=== PATIENT | male | born 1975 | race African-American/Black ===

== ENCOUNTER 2016-11-24 23:31 | Emergency (ER) | payer SELFPAY ==
[2016-11-24 23:31] VITALS: BP 122/76
--- NOTE | 2016-11-24 23:37 | ED.ADGEN ---
Past History Past Medical History: Schizophrenia Adult General Chief Complaint Chief Complaint " They kicked me out of care home for yelling... so the police said I had to come here...".. The care home told me not to come back for three days..." HPI HPI Patient is a 41 year old male who presents with above hx and police referral for his odd behavior. Pt. kicked out of care home for yelling. Pt. at first agreed to allow evaluation. Pt. however upon attempting to draw labs or get IV fluids refused. Pt. states he only wanted a place to sleep and get something to eat. Pt. denies suicidal or homicidal ideation. Pt. does state he has bad dreams. Pt. states he was arguing with other residents of care home is why he go kicked out. Advised patient we could not allow him to use the ED as over night care home, Pt. then elected to leave. Patient refused to produce any ID for his registration in the ED. Review of Systems Review of Systems Constitutional: Denies fever or chills [] Eyes: Denies change in visual acuity, redness, or eye pain [] HENT: Denies nasal congestion or sore throat [] Respiratory: Denies cough or shortness of breath [] Cardiovascular: No additional information not addressed in HPI [] GI: Denies abdominal pain, nausea, vomiting, bloody stools or diarrhea [] : Denies dysuria or hematuria [] Musculoskeletal: Denies back pain or joint pain [] Integument: Denies rash or skin lesions [] Neurologic: Denies headache, focal weakness or sensory changes [] Endocrine: Denies polyuria or polydipsia [] Family History Family History Noncontributory Current Medications Current Medications Current Medications Medications (Trade) Dose Ordered Sig/Rosey Start Time Stop Time Status Last Admin Dose Admin Diphenhydramine HCl (Benadryl) 50 mg 1X ONCE 11/25/16 00:30 11/25/16 00:31 DC Haloperidol (Haldol) 5 mg 1X ONCE 11/25/16 00:30 11/25/16 00:31 DC Lorazepam (Ativan) 1 mg 1X ONCE 11/25/16 00:30 11/25/16 00:31 DC Multivitamins/ Minerals/Folic Acid/Thiamine HCl/ Dextrose/Lactated Ringer's (Infuvite Adult/ Iv D5%-Lr) 1,011.2 ml @ 1,000 mls/ hr 1X ONCE 11/25/16 00:30 11/25/16 01:30 DC Pt. refuses all meds Allergies Allergies Allergies Coded Allergies Type Severity Reaction Last Updated Verified No Known Drug Allergies 11/25/16 No Physical Exam Physical Exam Constitutional: no acute distress, non-toxic appearance. Some pressured speech. HENT: Normocephalic, atraumatic, bilateral external ears normal, oropharynx moist, no oral exudates, nose normal. [] Eyes: PERRLA, EOMI, conjunctiva normal, no discharge. [] Neck: Normal range of motion, no tenderness, supple, no stridor. [] Cardiovascular:Heart rate regular rhythm, no murmur [] Lungs & Thorax: Bilateral breath sounds equal at apexes with a few scattered wheezes on auscultation [] Abdomen: Bowel sounds normal, soft, no tenderness, no masses, no pulsatile masses. [] Skin: Warm, dry, no erythema, no rash. [] Back: No tenderness, no CVA tenderness. [] Extremities: No tenderness, no cyanosis, no clubbing, ROM intact, no edema. [] Neurologic: Alert and oriented X 3, normal motor function, normal sensory function, no focal deficits noted. [] Psychologic: Affect angry that he got kicked out care home, somewhat poor insight., agitated. Demanded that he be arrested so he would have a place to stay. EKG EKG [] Radiology/Procedures Radiology/Procedures [] Course & Med Decision Making Course & Med Decision Making Pertinent Labs and Imaging studies reviewed. (See chart for details). Begged pt. reconsider his decision to leave and allow use to evaluate him and offer him some sedative meds. Pt. refused all care. Pt. left stated he needed the police come and arrest him. [] Final Impression Final Impression 1. Agitated. 2. Appears to have some components of Schizoaffective Disorder. 3. No findings or hx of suicidal or homicidal ideation Problems: Dragon Disclaimer Dragon Disclaimer This electronic medical record was generated, in whole or in part, using a voice recognition dictation system. EFFIE COPELAND MD Nov 24, 2016 23:37
[2016-11-25] MEDS ORDERED: DIPHENHYDRAMINE 50 MG/ML VIAL IV ONE (00:30)
[2016-11-25] MEDS ORDERED: HALOPERIDOL 1 MG TABLET PO ONE (00:30)
[2016-11-25] MEDS ORDERED: LORAZEPAM 1 MG TABLET. PO ONE (00:30)
[2016-11-25] MEDS ORDERED: MVI, ADULT NO.4 WITH VIT K 10 ML, FOLIC ACID 1 MG, THIAMINE 100 MG in IV DEXTROSE 5%-LA... IV ONE ×4 (00:30)
== END 2016-11-25 01:02 | disposition left against medical advice (07) ==
LOC: ER 23:31
DX: R45.1 Restlessness and agitation (principal); F20.9 Schizophrenia, unspecified
CPT/HCPCS: 99283

== ENCOUNTER 2017-02-04 22:43 | Emergency (ER) | payer SELFPAY ==
[2017-02-04 22:45] VITALS: BP 131/81
--- NOTE | 2017-02-04 23:10 | ED.ADGEN ---
Past History Past Medical History: Schizophrenia Past Surgical History: No Surgical History Alcohol Use: Occasionally Drug Use: None Adult General HPI HPI Patient is a 41-year-old man, with history of schizophrenia, who presents to the emergency department with a complaint of left knee pain. Patient states that he "tripped up and fell". He denies any dizziness, any lightheadedness, any chest pain or shortness breath, any weakness, numbness or tingling. He states at this point "my knee is feeling better". He did ambulate into the emergency department without issue. Patient was staying at a homeless [facility], and may have been asked to leave, it is unclear at this point. Patient states that his parents recently, and he currently doesn't have a home, states he is not sure where he is staying tonight. He denies any other injuries or complaints. Patient denies any suicidal or homicidal ideations. Appears to be responding to internal stimuli, but is answering all questions appropriately and is calm and cooperative. Review of Systems Review of Systems Constitutional: Denies fever or chills [] Eyes: Denies change in visual acuity, redness, or eye pain [] HENT: Denies nasal congestion or sore throat [] Respiratory: Denies cough or shortness of breath [] Cardiovascular: No additional information not addressed in HPI [] GI: Denies abdominal pain, nausea, vomiting, bloody stools or diarrhea [] : Denies dysuria or hematuria [] Musculoskeletal: Denies back pain, complaining of left knee pain. Integument: Denies rash or skin lesions [] Neurologic: Denies headache, focal weakness or sensory changes [] Endocrine: Denies polyuria or polydipsia [] Allergies Allergies Allergies Coded Allergies Type Severity Reaction Last Updated Verified No Known Drug Allergies 11/25/16 No Physical Exam Physical Exam Constitutional: Well developed, well nourished, no acute distress, non-toxic appearance. [] HENT: Normocephalic, atraumatic, bilateral external ears normal, oropharynx moist, no oral exudates, nose normal. [] Eyes: PERRLA, EOMI, conjunctiva normal, no discharge. [] Neck: Normal range of motion, no tenderness, supple, no stridor. [] Cardiovascular:Heart rate regular rhythm, no murmur, S1, S2, rubs or gallops. [] Lungs & Thorax: Bilateral breath sounds clear to auscultation, no wheezing, rhonchi, rales. No chest tenderness or crepitus. [] Abdomen: Bowel sounds normal, soft, no tenderness, no rebound, rigidity, no guarding, no masses, no pulsatile masses. [] Skin: Warm, dry, no erythema, no rash. [] Back: No tenderness, no CVA tenderness. [] Extremities: No tenderness, no cyanosis, no clubbing, ROM intact, no edema. [] Neurologic: Alert and oriented X 3, patient is animated, does have somewhat rambling speech, but is easily redirected, normal motor function, normal sensory function, no focal deficits noted. At some points appears to responding to internal stimuli..] Psychologic: Strange affect, animated, judgement normal. EKG EKG Not indicated. [] Radiology/Procedures Radiology/Procedures Not indicated. [] Course & Med Decision Making Course & Med Decision Making Pertinent Labs and Imaging studies reviewed. (See chart for details) History of schizophrenia, is exhibiting signs of responding to internal stimuli , but is answering questions appropriately, is appropriate and cooperative in the emergency department. After my initial evaluation, which did not reveal any evidence of acute abnormalities with the patient's left knee, patient states he is feeling better and that he "needs to go right now". Patient did get dressed, he is cooperative with questioning, and did sign discharge paperwork, states that he has a place to go, does not elaborate. States will return with any concerns. Patient discharged from the emergency department stable condition, exiting department without issue. Final Impression Final Impression [] Problems: Dragon Disclaimer Dragon Disclaimer This electronic medical record was generated, in whole or in part, using a voice recognition dictation system. Departure: Impression: Primary Impression: Knee pain Disposition: HOME, SELF-CARE Condition: STABLE BERHANE SALCEDO DO February 04, 2017 23:10
== END 2017-02-04 23:03 | disposition home or self-care (01) ==
LOC: ER 22:43
DX: M25.562 Pain in left knee (principal); F20.9 Schizophrenia, unspecified; W01.0XXA Fall on same level from slipping, tripping and stumbling without subsequent striking against object, initial encounter; Y93.89 Activity, other specified; Y99.8 Other external cause status; Y92.89 Other specified places as the place of occurrence of the external cause
CPT/HCPCS: 99281

== ENCOUNTER 2017-02-05 04:49 | Emergency (ER) | payer SELFPAY ==
[2017-02-05 04:49] VITALS: BP 118/84
--- NOTE | 2017-02-05 05:13 | ED.ADGEN ---
Past History Past Medical History: Diabetes Past Surgical History: Other Alcohol Use: None Drug Use: None Adult General HPI HPI Patient is a 41-year-old man, with history of diabetes, schizophrenia, who presents to the emergency department with a complaint of left knee pain. Patient states that several hours ago he fell, tripping over his feet, and striking his left knee on the ground. Patient was seen earlier this evening, with the same complaint, however at time of evaluation he stated he did leave the emergency department, and was discharged as he was ambulating without difficulty. Patient returns complaining of continued pain in the left knee. Patient did ambulate in the ED without any evidence of difficulty. He states that he did fall down and strike his left knee. He is complaining of pain in both the lateral and anterior portions of the knee. Patient is also complaining of a "weird thing" with his penis, denies any discharge or drainage, any concern for sexually transmitted infections, any injuries. Patient denies chest pain, shortness breath, fevers, chills, hematuria or dysuria, weakness, numbness , tingling, other injuries or complaints. Patient occasionally appears to be responding to internal stimuli, but is cooperative and appropriate in his responses. Review of Systems Review of Systems Constitutional: Denies fever or chills [] Eyes: Denies change in visual acuity, redness, or eye pain [] HENT: Denies nasal congestion or sore throat [] Respiratory: Denies cough or shortness of breath [] Cardiovascular: No additional information not addressed in HPI [] GI: Denies abdominal pain, nausea, vomiting, bloody stools or diarrhea [] : Denies dysuria or hematuria . "Strange thing" regarding his penis. [] Musculoskeletal: Denies back pain, complaining of pain in the left knee. Integument: Denies rash or skin lesions [] Neurologic: Denies headache, focal weakness or sensory changes [] Endocrine: Denies polyuria or polydipsia [] Current Medications Current Medications Current Medications Medications (Trade) Dose Ordered Sig/Rosey Start Time Stop Time Status Last Admin Dose Admin Naproxen (Naprosyn) 500 mg 1X ONCE 02/05/17 05:30 02/05/17 05:31 DC 02/05/17 05:15 500 MG Allergies Allergies Allergies Coded Allergies Type Severity Reaction Last Updated Verified egg Allergy Intermediate 02/05/17 Yes shellfish derived Allergy Intermediate 02/05/17 Yes Physical Exam Physical Exam Constitutional: Well developed, well nourished, no acute distress, non-toxic appearance. [] HENT: Normocephalic, atraumatic, bilateral external ears normal, oropharynx moist, no oral exudates, nose normal. [] Eyes: PERRLA, EOMI, conjunctiva normal, no discharge. [] Neck: Normal range of motion, no tenderness, supple, no stridor. [] Cardiovascular:Heart rate regular rhythm, no murmur, S1, S2, no rubs or gallops. [] Lungs & Thorax: Bilateral breath sounds clear to auscultation, no wheezing, rhonchi, rales. No chest wall tenderness or crepitus. [] Abdomen: Bowel sounds normal, soft, no tenderness, no masses, no pulsatile masses. [] Skin: Warm, dry, no erythema, no rash. [] Back: No tenderness, no CVA tenderness. [] Extremities: No bony point tenderness identified, patient complaining of pain in the patella and lateral malleolus region, no cyanosis, no clubbing, ROM intact, no edema. [] Neurologic: Alert and oriented X 3, normal motor function, normal sensory function, no focal deficits noted. [] Psychologic: Affect normal, judgement normal, mood normal. [] examination: Normal-appearing examination, patient is circumcised, no lesions abnormalities identified, no discharge or drainage, no injuries, no tenderness to palpation, normal cremaster reflex, no lymphadenopathy. Current Patient Data Vital Signs Vital Signs Date Time Temp Pulse Resp B/P (MAP) Pulse Ox O2 Delivery O2 Flow Rate FiO2 02/05/17 04:49 97.7 60 16 99 Room Air EKG EKG Not indicated. [] Radiology/Procedures Radiology/Procedures Knee x-ray: Three-view: Left: No acute fracture or subluxation, no effusion, no soft tissue or bony abnormalities identified. As interpreted by me. [] Course & Med Decision Making Course & Med Decision Making Pertinent Labs and Imaging studies reviewed. (See chart for details) Patient complaining of left knee pain, and also a vague complaints regarding his genital region, denies any concerning history of exposure or symptoms, after discussion is agreeable we will obtain an x-ray of the knee, and a urine dipstick to rule out abnormalities, patient also to receive naproxen for discomfort in the ED. No evidence of joint effusion or other abnormalities, patient with vital signs within normal limits in the emergency department, and no other concerning history, no indication for additional testing beyond what has been discussed at this time based on my evaluation. Patient freely stated that he was homeless, and when he left the ED previously, was not sure his ear he was going to spend the night, which may be a portion of the reason why he is return to the emergency department this time. As stated, patient is occasionally responding to internal stimuli, but is appropriate in his responses and behavior, and denies any concerning mental health symptoms at this time. Patient's x-ray reviewed, no concerning finds identified, as stated patient ambulated without difficulty, discusses the patient and he states that he is relieved with these findings to be discharged home. He does not want to wait to provide a urine sample at this time. We did give him recommendations and precautions, and also follow information for [facility] clinic. Patient states he'll return if he requires additional evaluation, was discharged in stable condition with plan as above. Final Impression Final Impression [] Problems: Dragon Disclaimer Dragon Disclaimer This electronic medical record was generated, in whole or in part, using a voice recognition dictation system. Departure: Disposition: 01 HOME, SELF-CARE Condition: IMPROVED BERHANE SALCEDO DO February 05, 2017 05:13
[2017-02-05] MEDS ORDERED: NAPROXEN 500 MG TABLET PO ONE (05:30)
--- NOTE | 2017-02-05 09:13 | RAD ---
Left knee radiographs History: Pain after fall. Comparison: None. Findings: AP, lateral, and oblique views of the left knee. No acute fracture or dislocation is identified. No joint effusion is seen. Minimal tricompartment degeneration is present. Fabella is noted. Impression: No acute osseous traumatic injury identified.
== END 2017-02-05 05:57 | disposition home or self-care (01) ==
LOC: ER 04:49
DX: M25.562 Pain in left knee (principal); E11.9 Type 2 diabetes mellitus without complications; Z91.012 Allergy to eggs; Z91.013 Allergy to seafood; W01.198A Fall on same level from slipping, tripping and stumbling with subsequent striking against other object, initial encounter; Y93.89 Activity, other specified; Y99.8 Other external cause status; Y92.89 Other specified places as the place of occurrence of the external cause
CPT/HCPCS: 73562; 99284

== ENCOUNTER 2017-02-05 23:30 | Emergency (ER) | payer SELFPAY ==
[2017-02-05 23:30] VITALS: BP 112/69
--- NOTE | 2017-02-06 00:56 | ED.ADGEN ---
Past History Past Medical History: Anxiety, Diabetes, Other Past Surgical History: Other Alcohol Use: None Drug Use: None Adult General HPI HPI Patient is a 41-year-old man, who presents emergency department complaining of "numbness"in the anterior portion of his left leg. Patient was seen in the emergency department twice last night, at that time he was complaining of left knee pain. Patient is homeless, and states that he [facility]". He states that he was planning on going to [place], but at this point does not have the resources to get to [place]. Patient denies any injuries, states that he will occasionally have numbness in his left lower extremity, denies any swelling, any pain, states that he "walks a lot", no pain in the feet, no pain in the right side of his leg, he is denying pain in the left leg at this time. Patient received an x-ray yesterday that was unremarkable of his left knee. When asked where he is staying [facility], patient states "I don't have any where to go." Vital signs within normal limits, no chest pain, shortness breath, nausea, vomiting, no rashes, no other complaints. Review of Systems Review of Systems Constitutional: Denies fever or chills [] Eyes: Denies change in visual acuity, redness, or eye pain [] HENT: Denies nasal congestion or sore throat [] Respiratory: Denies cough or shortness of breath [] Cardiovascular: No additional information not addressed in HPI [] GI: Denies abdominal pain, nausea, vomiting, bloody stools or diarrhea [] : Denies dysuria or hematuria [] Musculoskeletal: Denies back pain or joint pain [] Integument: Denies rash or skin lesions [] Neurologic: Denies headache, focal weakness, complaining of intermittent numbness in the anterior portion of his left lower extremity. Endocrine: Denies polyuria or polydipsia [] Allergies Allergies Allergies Coded Allergies Type Severity Reaction Last Updated Verified egg Allergy Intermediate 02/05/17 Yes shellfish derived Allergy Intermediate 02/05/17 Yes Physical Exam Physical Exam Constitutional: Well developed, well nourished, no acute distress, non-toxic appearance. [] HENT: Normocephalic, atraumatic, bilateral external ears normal, oropharynx moist, no oral exudates, nose normal. [] Eyes: PERRLA, EOMI, conjunctiva normal, no discharge. [] Neck: Normal range of motion, no tenderness, supple, no stridor. [] Cardiovascular:Heart rate regular rhythm, no murmur, S1, S2, rubs or gallops. [] Lungs & Thorax: Bilateral breath sounds clear to auscultation, no wheezing, rhonchi, rales. No chest or crepitus or tenderness. [] Abdomen: Bowel sounds normal, soft, no tenderness, no rebound, rigidity, no guarding, no masses, no pulsatile masses. [] Skin: Warm, dry, no erythema, no rash. [] Back: No tenderness, no CVA tenderness. [] Extremities: No tenderness, no cyanosis, no clubbing, ROM intact, no edema. Patient with sensation intact on my examination. Eyes and patient's feet as well , there is no evidence of skin breakdown, swelling, or other abnormalities. Neurologic: Alert and oriented X 3, normal motor function, normal sensory function, no focal deficits noted. [] Psychologic: Affect normal, judgement normal, mood normal. [] EKG EKG Not indicated. [] Radiology/Procedures Radiology/Procedures [] Course & Med Decision Making Course & Med Decision Making Pertinent Labs and Imaging studies reviewed. (See chart for details) [] Patient with a normal examination of bilateral lower extremities and feet. On further questioning, patient states that he does not have anywhere to go tonight, as he has [facility]". As stated, his plan was to go to [place] where he has some resources but he is able to get there at this time due to transportation difficulties. It does appear that the patient is primarily looking for a place to rest. He denies any other complaints at this time, and asthma evaluation is not identified any concerning findings, patient was then discharged, with resources for [facility] clinic, and instructions on concerning symptoms that prompt return. Final Impression Final Impression [] Problems: Dragon Disclaimer Dragon Disclaimer This electronic medical record was generated, in whole or in part, using a voice recognition dictation system. Departure: Impression: Primary Impression: Left leg paresthesias Additional Impression: Homeless Disposition: 01 HOME, SELF-CARE Condition: STABLE BERHANE SALCEDO DO Feb 06, 2017 00:56
== END 2017-02-06 00:35 | disposition home or self-care (01) ==
LOC: ER 23:30
DX: R20.2 Paresthesia of skin (principal); E11.9 Type 2 diabetes mellitus without complications; F41.9 Anxiety disorder, unspecified; Z59.0 Homelessness; Z91.012 Allergy to eggs; Z91.013 Allergy to seafood
CPT/HCPCS: 99281

== ENCOUNTER 2017-02-06 22:39 | Emergency (ER) | payer SELFPAY ==
--- NOTE | 2017-02-06 22:47 | ED.ADGEN ---
Past History Past Medical History: Diabetes Past Surgical History: No Surgical History Alcohol Use: None Drug Use: None Adult General HPI HPI Patient is a [age] year old [sex] who presents with [] Review of Systems Review of Systems Constitutional: Denies fever or chills [] Eyes: Denies change in visual acuity, redness, or eye pain [] HENT: Denies nasal congestion or sore throat [] Respiratory: Denies cough or shortness of breath [] Cardiovascular: No additional information not addressed in HPI [] GI: Denies abdominal pain, nausea, vomiting, bloody stools or diarrhea [] : Denies dysuria or hematuria [] Musculoskeletal: Denies back pain or joint pain [] Integument: Denies rash or skin lesions [] Neurologic: Denies headache, focal weakness or sensory changes [] Endocrine: Denies polyuria or polydipsia [] Allergies Allergies Allergies Coded Allergies Type Severity Reaction Last Updated Verified egg Allergy Intermediate 02/05/17 Yes shellfish derived Allergy Intermediate 02/05/17 Yes Physical Exam Physical Exam Constitutional: Well developed, well nourished, no acute distress, non-toxic appearance. [] HENT: Normocephalic, atraumatic, bilateral external ears normal, oropharynx moist, no oral exudates, nose normal. [] Eyes: PERRLA, EOMI, conjunctiva normal, no discharge. [] Neck: Normal range of motion, no tenderness, supple, no stridor. [] Cardiovascular:Heart rate regular rhythm, no murmur [] Lungs & Thorax: Bilateral breath sounds clear to auscultation [] Abdomen: Bowel sounds normal, soft, no tenderness, no masses, no pulsatile masses. [] Skin: Warm, dry, no erythema, no rash. [] Back: No tenderness, no CVA tenderness. [] Extremities: No tenderness, no cyanosis, no clubbing, ROM intact, no edema. [] Neurologic: Alert and oriented X 3, normal motor function, normal sensory function, no focal deficits noted. [] Psychologic: Affect normal, judgement normal, mood normal. [] Current Patient Data Vital Signs Vital Signs Date Time Temp Pulse Resp B/P (MAP) Pulse Ox O2 Delivery O2 Flow Rate FiO2 02/06/17 22:50 98.3 68 20 99 Room Air EKG EKG [] Radiology/Procedures Radiology/Procedures [] Course & Med Decision Making Course & Med Decision Making Pertinent Labs and Imaging studies reviewed. (See chart for details) [] Final Impression Final Impression [] Problems: Dragon Disclaimer Dragon Disclaimer This electronic medical record was generated, in whole or in part, using a voice recognition dictation system. NANCY SALGADO MD Feb 06, 2017 22:47
[2017-02-06 22:50] VITALS: BP 130/88
== END 2017-02-06 23:05 | disposition home or self-care (01) ==
LOC: ER 22:39
DX: R20.0 Anesthesia of skin (principal); M79.605 Pain in left leg; Z59.0 Homelessness; Z53.21 Procedure and treatment not carried out due to patient leaving prior to being seen by health care provider

== ENCOUNTER 2017-02-11 04:03 | Emergency (ER) | payer SELFPAY ==
[2017-02-11 04:25] VITALS: BP 111/73
--- NOTE | 2017-02-11 04:28 | PHYS DOC ---
Past History Past Medical History: Anxiety, Diabetes, Schizophrenia Past Surgical History: No Surgical History Alcohol Use: None Drug Use: None Adult General Chief Complaint Chief Complaint: EARACHE/EAR PAIN HPI HPI Patient is a 41 year old M who presents with left ear pain for the past 3 hours. Patient denies any fevers. Patient denies any chest pain or shortness of breath. Patient denies any productive cough or URI symptoms. Patient denies any nausea/vomiting/diarrhea. Patient has no other complaints. Pertinent exam findings: TMs bilaterally were clear nonbulging non-erythematous cerumen noted in both ear canals but not impacted ED course: Patient was seen and evaluated and was offered pain medication for his left earache however he declined by mouth and IM pain medication and would like to be discharged. MDM: After reviewing the chart, CC/HPI/PMH, physical exam, do not believe the patient has emergent medical condition warranting further workup and/or admission at this time. Based on physical exam I see no signs of a bacterial infection warranting antibiotics. Patient declined all offers of pain medication in the emergency room. Patient is stable to be discharged. Patient is comfortable being discharged. Additional verbal discharge instructions were provided to the patient and that if symptoms get worse or any new symptoms arise that are worrisome to the patient he is to return to the emergency room immediately Review of Systems Review of Systems GEN: Denies fevers, chills, sweats HEENT: Left ear pain, Denies blurred vision, sore throat CV: Denies chest pain RESP: Denies shortness of air, cough GI: Denies n/v/d NEURO: Denies confusion, dizziness MSK: Denies weakness, joint pain/swelling Allergies Allergies Allergies Coded Allergies Type Severity Reaction Last Updated Verified egg Allergy Intermediate 02/05/17 Yes shellfish derived Allergy Intermediate 02/05/17 Yes Physical Exam Physical Exam GEN.: No apparent distress. Alert and oriented. HEENT: Head is normocephalic, atraumatic, TMs clear bilaterally nonbulging with no erythema, cerumen noted in both ear canals but not impacted NECK: Supple. LUNGS: CTAB. HEART: RRR, S1, S2 present. Peripheral pulses intact ABDOMEN: Soft, nontender. Positive bowel sounds. EXTREMITIES: Without any cyanosis. NEUROLOGIC: Normal speech, normal tone PSYCHIATRIC: Normal affect, normal mood. SKIN: No ulcerations EKG EKG [] Radiology/Procedures Radiology/Procedures [] Course & Med Decision Making Course & Med Decision Making Pertinent Labs and Imaging studies reviewed. (See chart for details) [] Dragon Disclaimer Dragon Disclaimer This chart was dictated in whole or in part using Voice Recognition software in a busy, high-work load, and often noisy Emergency Department environment. It may contain unintended and wholly unrecognized errors or omissions. Departure Departure: Impression: Primary Impression: Otalgia of left ear Disposition: HOME, SELF-CARE Condition: IMPROVED Referrals: PCP,NO (PCP) Patient Instructions: Otalgia-Brief Additional Instructions: Please follow with her PCP in one to 2 days PAGE GUERRERO DO Feb 11, 2017 04:28
== END 2017-02-11 04:35 | disposition home or self-care (01) ==
LOC: ER 04:03
DX: H92.02 Otalgia, left ear (principal); F20.9 Schizophrenia, unspecified; E11.9 Type 2 diabetes mellitus without complications; Z91.012 Allergy to eggs; Z91.013 Allergy to seafood
CPT/HCPCS: 99281

== ENCOUNTER 2017-02-12 23:23 | Emergency (ER) | payer SELFPAY ==
[2017-02-12 23:23] VITALS: BP 112/72
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
[2017-02-13] MEDS ORDERED: NAPROXEN 500 MG TABLET PO ONE (00:15)
== END 2017-02-13 00:10 | disposition home or self-care (01) ==
LOC: ER 23:23
DX: G89.29 Other chronic pain (principal); M25.562 Pain in left knee; K05.10 Chronic gingivitis, plaque induced; E11.9 Type 2 diabetes mellitus without complications; F20.9 Schizophrenia, unspecified; Z91.012 Allergy to eggs; W18.09XA Striking against other object with subsequent fall, initial encounter; Y93.01 Activity, walking, marching and hiking; Y92.241 Library as the place of occurrence of the external cause; Y99.8 Other external cause status; Z91.013 Allergy to seafood
CPT/HCPCS: 99282

== ENCOUNTER 2017-03-13 00:02 | Emergency (ER) | payer SELFPAY ==
[2017-03-13 00:02] VITALS: BP 124/78
[2017-03-13] MEDS ORDERED: LORazepam 1 MG TABLET ONE (00:19)
--- NOTE | 2017-03-13 00:22 | PHYS DOC ---
Past History Past Medical History: Anxiety, Diabetes, Schizophrenia, Other Past Surgical History: No Surgical History Alcohol Use: None Drug Use: None Adult General Chief Complaint Chief Complaint: HALLUCINATIONS AUDIBLE/VISUAL HPI HPI This is a pleasant 41-year-old male with a history of schizophrenia and anxiety who is homeless and [facility] shows up in the emergency from either complaining of auditory hallucinations or knee pain. Today's complain of auditory hallucinations began earlier today there are voices that he hears although they are not command voices he does not recognize the voices and these are not telling to hurt himself or anyone else. He believes that there are speaking Latin he has had symptoms like this before and these beginning more frequent over the last several days. He denies any headache, nausea, vomiting, change in vision, fevers or chills recent URI symptoms change in medications or trauma. Patient is very pleasant he has no complaints otherwise My differential for visual and auditory hallucinations includes but is not limited to retinal pathology, vision loss, migraine headache, seizure disorder, dementia, alcohol, alcohol withdrawal, medication withdrawal, narcolepsy, psychiatric illness, metabolic encephalopathy, hypothyroidism, renal failure, systemic infection, central nervous system ischemia, Review of Systems Review of Systems Constitutional: Denies fever or chills [] Eyes: Denies change in visual acuity, redness, or eye pain [] HENT: Denies nasal congestion or sore throat [] Respiratory: Denies cough or shortness of breath [] Cardiovascular: No additional information not addressed in HPI [] GI: Denies abdominal pain, nausea, vomiting, bloody stools or diarrhea [] : Denies dysuria or hematuria [] Musculoskeletal: Denies back pain or joint pain [] Integument: Denies rash or skin lesions [] Neurologic: Denies headache, focal weakness or sensory changes [] Endocrine: Denies polyuria or polydipsia [] Allergies Allergies Allergies Coded Allergies Type Severity Reaction Last Updated Verified egg Allergy Intermediate 02/05/17 Yes shellfish derived Allergy Intermediate 02/05/17 Yes Physical Exam Physical Exam Constitutional: Well developed, well nourished, no acute distress, non-toxic appearance. [] HENT: Normocephalic, atraumatic, bilateral external ears normal, oropharynx moist, no oral exudates, nose normal. [] Eyes: PERRLA, EOMI, conjunctiva normal, no discharge. [] Neck: Normal range of motion, no tenderness, supple, no stridor. [] Cardiovascular:Heart rate regular rhythm, no murmur [] Lungs & Thorax: Bilateral breath sounds clear to auscultation [] Abdomen: Bowel sounds normal, soft, no tenderness, no masses, no pulsatile masses. [] Skin: Warm, dry, no erythema, no rash. [] Extremities: No tenderness, no cyanosis, no clubbing, ROM intact, no edema. [] Neurologic: Alert and oriented X 3, normal motor function, normal sensory function, no focal deficits noted. [] Psychologic: Low he says he is experiencing auditory hallucinations his affect is normal he's very reasonable in one to take oral medications without issue. He is not hungry he is comfortable resting in the quiet. EKG EKG [] Radiology/Procedures Radiology/Procedures [] Course & Med Decision Making Course & Med Decision Making Pertinent Labs and Imaging studies reviewed. (See chart for details) his is a patient with a long-standing history of poorly-controlled schizophrenia. He denies being suicidal homicidal at this time denies these are command voices not calling him to do anything inappropriate or dangerous. He is resting comfortably is not hungry he has no other complaints. He will be offered oral Haldol and Ativan to treat his acute symptoms. I will encourage him to follow- up with his primary care doctor or the local health department to encourage him to stay on his medications to treat his schizophrenia. [] Dragon Disclaimer Dragon Disclaimer This chart was dictated in whole or in part using Voice Recognition software in a busy, high-work load, and often noisy Emergency Department environment. It may contain unintended and wholly unrecognized errors or omissions. Departure Departure: Impression: Primary Impression: Schizophrenia Additional Impression: Auditory hallucinations Disposition: 01 HOME, SELF-CARE Condition: STABLE Referrals: PCPSTEVE (PCP) Patient Instructions: Hallucinations and Delusions Additional Instructions: Please follow-up with the local health department for continued management of your medications. I would encourage her to follow-up with his local psychiatrist to change or modify medications if that would help control your symptoms. Problem Qualifiers JUNIOR MORENO MD Mar 13, 2017 00:22
[2017-03-13] MEDS ORDERED: LORazepam 1 MG TABLET PO ONE (00:30)
[2017-03-13] MEDS ORDERED: HALOPERIDOL 1 MG TABLET PO ONE ×2 (00:30)
== END 2017-03-13 00:37 | disposition home or self-care (01) ==
LOC: ER 00:02
DX: F20.9 Schizophrenia, unspecified (principal); E11.9 Type 2 diabetes mellitus without complications; F41.9 Anxiety disorder, unspecified; Z59.0 Homelessness; Z91.012 Allergy to eggs; Z91.013 Allergy to seafood
CPT/HCPCS: 99283

== ENCOUNTER 2017-03-16 00:30 | Emergency (ER) | payer SELFPAY ==
--- NOTE | 2017-03-16 01:32 | PHYS DOC ---
Past History Past Medical History: Anxiety, Diabetes, Schizophrenia, Other Past Surgical History: No Surgical History Alcohol Use: None Drug Use: None Adult General Chief Complaint Chief Complaint: HALLUCINATIONS AUDIBLE/VISUAL HPI HPI This is a pleasant 41-year-old male with a history of poorly with schizophrenia who presents with hearing voices. He says he does voice been going on for years intermittently they're not command voices he does not recognize them and did not manifest to hurt himself or anybody else. He was just asking for some effect to treat his symptoms saying go about his business. He denies any headache, denies any trauma, denies any medication changes. He denies any fevers , chills or other symptoms. He is somewhat hungry and also asked for a meal to eat. He denies any pain. He does have a place to stay once he is treated. Review of Systems Review of Systems Constitutional: Denies fever or chills [] Eyes: Denies change in visual acuity, redness, or eye pain [] HENT: Denies nasal congestion or sore throat [] Respiratory: Denies cough or shortness of breath [] Cardiovascular: No additional information not addressed in HPI [] GI: Denies abdominal pain, nausea, vomiting, bloody stools or diarrhea [] : Denies dysuria or hematuria [] Musculoskeletal: Denies back pain or joint pain [] Integument: Denies rash or skin lesions [] Neurologic: Denies headache, focal weakness or sensory changes he complains primary of hearing voices although they do not say for him to do anything specific to keep him up at night. He does not recognize them did not tell him to hurt himself or anybody was. He denies homicidal suicidal ideations Endocrine: Denies polyuria or polydipsia [] Current Medications Current Medications Current Medications Medications (Trade) Dose Ordered Sig/Rosey Start Time Stop Time Status Last Admin Dose Admin Haloperidol (Haldol) 5 mg 1X ONCE 03/16/17 02:00 03/16/17 02:01 Allergies Allergies Allergies Coded Allergies Type Severity Reaction Last Updated Verified egg Allergy Intermediate 02/05/17 Yes shellfish derived Allergy Intermediate 02/05/17 Yes Physical Exam Physical Exam Blood pressure 145/81 saturation on 100% percent on room air Constitutional: Well developed, well nourished, no acute distress, non-toxic appearance. He is appropriate and interactive HENT: Normocephalic, atraumatic, bilateral external ears normal, oropharynx moist, Eyes: PERRLA, EOMI, conjunctiva normal, no discharge. [] Neck: Normal range of motion, no tenderness, supple, no stridor. [] Cardiovascular:Heart rate regular rhythm, no murmur [] Lungs & Thorax: Bilateral breath sounds clear to auscultation [] Skin: Warm, dry, no erythema, no rash. [] Back: No tenderness, no CVA tenderness. [] Extremities: No tenderness, no cyanosis, Neurologic: Alert and oriented X 3, normal motor function, normal sensory function, no focal deficits noted. [] Psychologic: Affect normal, judgement normal, mood normal. He is very appropriate and interactive not actively hearing voices at this time. Patient asked for food is resting comfortably without issue he's had a normal gait EKG EKG [] Radiology/Procedures Radiology/Procedures [] Course & Med Decision Making Course & Med Decision Making Pertinent Labs and Imaging studies reviewed. (See chart for details) and presents with his typical auditory hallucinations. He has asked for by mouth dose of Haldol and food. Not a danger to himself or anybody else he does have follow-up as opposed to stay tonight. My differential for visual hallucinations includes but is not limited to retinal pathology, vision loss, migraine headache, seizure disorder, dementia, alcohol, alcohol withdrawal, medication withdrawal, narcolepsy, psychiatric illness, metabolic encephalopathy, hypothyroidism, renal failure, systemic infection, central nervous system ischemia, considered but patient assures me this is a typical presentation for him with no other changes. Impression: Auditory hallucinations reported by history, poorly controlled schizophrenia dePosition: PCP follow-up and referral to behavioral health [] Dragon Disclaimer Dragon Disclaimer This chart was dictated in whole or in part using Voice Recognition software in a busy, high-work load, and often noisy Emergency Department environment. It may contain unintended and wholly unrecognized errors or omissions. Departure Departure: Impression: Primary Impression: Auditory hallucinations Disposition: 01 HOME, SELF-CARE Condition: STABLE Referrals: PCP,NO (PCP) Patient Instructions: Hallucinations and Delusions Additional Instructions: Please follow-up with your PCP in the morning for modification of her medications referral to behavioral health to help treat your schizophrenic. Please return for any new or increasing symptoms. JUNIOR MORENO MD Mar 16, 2017 01:32
[2017-03-16 02:00] VITALS: BP 144/82
[2017-03-16] MEDS ORDERED: HALOPERIDOL 1 MG TABLET PO ONE (02:00)
== END 2017-03-16 02:12 | disposition home or self-care (01) ==
LOC: ER 00:30
DX: R44.0 Auditory hallucinations (principal); E11.9 Type 2 diabetes mellitus without complications; F41.9 Anxiety disorder, unspecified; Z91.012 Allergy to eggs; Z91.013 Allergy to seafood
CPT/HCPCS: 99282; 99284

== ENCOUNTER 2017-03-16 07:38 | Emergency (ER) | payer SELFPAY ==
[2017-03-16 07:45] VITALS: BP 144/76
--- NOTE | 2017-03-16 08:13 | RAD ---
Examination: 2 views of the chest History: History of cough for one week. Comparison: None available Findings: The cardiomediastinal silhouette grossly appears unremarkable. Minimal prominent appearing bilateral interstitial lung markings in the perihilar region probably secondary to bronchitis. Impression: 1. Minimal prominent appearing bronchial markings in the perihilar region probably secondary to bronchitis.
== END 2017-03-16 08:12 | disposition left against medical advice (07) ==
LOC: ER 07:38
DX: R04.2 Hemoptysis (principal)
CPT/HCPCS: 71020; 99281; 99284

== ENCOUNTER 2017-03-20 21:15 | Observation (INO) | payer SELFPAY ==
[2017-03-20] MEDS ORDERED: LORazepam 1 MG TABLET PO ONE (22:00)
[2017-03-20] MEDS ORDERED: HALOPERIDOL 1 MG TABLET PO ONE (22:00)
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
[2017-03-21 01:17] LABS: BASO # 0.1 x10^3/uL (0.0-0.2); BASO % 2 % (0-3); EOS # 0.1 x10^3/uL (0.0-0.7); EOS % 3 % (0-3); HEMATOCRIT 37.7 % (39.0-53.0); HEMOGLOBIN 12.1 g/dL (13.0-17.5); LYMPH # 1.2 x10^3/uL (1.0-4.8); LYMPH % 29 % (24-48); MEAN CORPUSCULAR HEMOGLOBIN 24 pg (25-35); MEAN CORPUSCULAR HGB CONC 32 g/dL (31-37); MEAN CORPUSCULAR VOLUME 74 fL (79-100); MONO # 0.4 x10^3/uL (0.0-1.1); MONO % 10 % (0-9); NEUT # 2.2 x10^3uL (1.8-7.7); NEUT % 56 % (31-73); PLATELET COUNT 209 x10^3/uL (140-400); RED BLOOD COUNT 5.07 x10^6/uL (4.30-5.70); RED CELL DISTRIBUTION WIDTH 14.4 % (11.5-14.5); WHITE BLOOD COUNT 3.9 x10^3/uL (4.0-11.0)
[2017-03-21 01:25] LABS: ALBUMIN 3.2 g/dL (3.4-5.0); ALBUMIN/GLOBULIN RATIO 0.8 (1.0-1.7); CALCIUM 8.6 mg/dL (8.5-10.1); CREATININE 0.6 mg/dL (0.7-1.3); GFR 180.6; TOTAL BILIRUBIN 0.3 mg/dL (0.2-1.0); TOTAL PROTEIN 7.3 g/dL (6.4-8.2)
[2017-03-21] MEDS ORDERED: ACETAMINOPHEN 325 MG TABLET PO PRN (06:15)
--- NOTE | 2017-03-21 06:47 | EKG ---
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
[2017-03-21 08:03] LABS: AMPHETAMINE/METHAMPHETAMINE NEG (NEG); BARBITURATES NEG (NEG); BENZODIAZEPINES NEG (NEG); CANNABINOIDS NEG (NEG); COCAINE NEG (NEG); METHADONE NEG (NEG); OPIATES NEG (NEG); PHENCYCLIDINE NEG (NEG)
[2017-03-21 08:06] LABS: BACTERIA,URINE 0 /HPF (0-FEW); BILIRUBIN,URINE NEG (NEG); CLARITY,URINE CLEAR; COLOR,URINE YELLOW; GLUCOSE,URINE NEG (NEG); HYALINE CASTS, URINE OCC /HPF; NITRITE,URINE NEG (NEG); RBC,URINE 0 /HPF (0-2); SQUAMOUS EPITHELIAL CELL,UR OCC /LPF; UROBILINOGEN,URINE 0.2 mg/dL (0.2 mg/dL); WBC,URINE 0 /HPF (0-4)
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
[2017-03-21 11:28] VITALS: BP 117/75
--- NOTE | 2017-03-25 02:14 | ACF ---
Admission Criteria Forms PSYCHIATRIC DISORDERS Clinical Indications for Inpatient Care (Place 'X' for any and all applicable criteria): Ongoing inpatient care may be needed for 1 or more of the following(1)(2)(3)(4)( 6)(7)(8): [ ]I. Danger to self or others not manageable at lower level of care. [ ]II. Grave disability (eg, inability to perform self care necessary at lower level of care) [ ]III. Agitation or inappropriate behavior interfering with care for primary condition (eg, attempting to discontinue lines or drains prematurely, unable to cooperate with respiratory care) [x]IV. Severe disability or disorder indicated by ALL of the following: [x]a) Severe behavioral health disorder-related symptoms or condition indicated by 1 or more of the following: [ ]i) Severe problem with cognition, memory, judgment, or impulse control [x]ii) Severe clinical manifestations (eg, hallucinations, delusions, other acute psychotic symptoms, zulema, extreme agitation or anxiety) [x]b) Patient management at lower level of care is not feasible until acute intervention or modification is initiated. Extended stay beyond goal length of stay for the primary condition may be needed untilALLof the following are present(1)(2)(3)(4)(722)(23): [ ]a) Danger to self or others is absent or manageable at lower level of care [ ]b) Behavior crisis management, including physical or chemical restraints, is required and is not available at a lower level of care. [ ]c) Behavioral symptoms (e.g., agitation, somnolence, inappropriate behavior) are present, and are not manageable at a lower level of care. [ ]d) Patient cannot understand follow-up treatment and crisis plan. [ ]e) Provider and supports are sufficiently available at lower level of care. [ ]f) Patient can participate (e.g., verify absence of plan for harm) and is in needed of monitoring. The original [facility] [employer] content created by [facility] [employer] has been revised. The portions of the content which have been revised are identified through the use of italic text, and [employer] has neither reviewed nor approved the modified material. All other unmodified content is copyright [facility]. Please see references footnoted in the original [facility] edition 2015 Admission Criteria Met?: Yes PETE LYNN Mar 25, 2017 02:14
== END 2017-03-21 13:34 | disposition home or self-care (01) ==
LOC: ER 21:15 → ICU 03-21 06:09
PROVIDERS: ADMIT Family Medicine; ATTEND Family Medicine
DX: F31.9 Bipolar disorder, unspecified (principal); F20.9 Schizophrenia, unspecified; E11.9 Type 2 diabetes mellitus without complications; F17.200 Nicotine dependence, unspecified, uncomplicated; Z59.0 Homelessness
CPT/HCPCS: 36415; 80053; 81001; 82550; 84484; 85027; 87641; 93005; 99285; G0378; G0480; G0481; G0379

== ENCOUNTER 2017-03-23 05:04 | Emergency (ER) | payer SELFPAY ==
[2017-03-23 05:20] VITALS: BP 120/66
[2017-03-23] MEDS ORDERED: HALOPERIDOL LACT 5 MG/ML VIAL. IVP ONE (05:30)
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
[2017-03-23 05:50] LABS: BASO # 0.1 x10^3/uL (0.0-0.2); BASO % 1 % (0-3); EOS # 0.2 x10^3/uL (0.0-0.7); EOS % 3 % (0-3); HEMATOCRIT 40.2 % (39.0-53.0); LYMPH % 21 % (24-48); MEAN CORPUSCULAR HEMOGLOBIN 24 pg (25-35); MEAN CORPUSCULAR HGB CONC 32 g/dL (31-37); MEAN CORPUSCULAR VOLUME 75 fL (79-100); MONO # 0.5 x10^3/uL (0.0-1.1); MONO % 10 % (0-9); NEUT # 3.1 x10^3uL (1.8-7.7); NEUT % 65 % (31-73); PLATELET COUNT 240 x10^3/uL (140-400); RED BLOOD COUNT 5.38 x10^6/uL (4.30-5.70); RED CELL DISTRIBUTION WIDTH 14.6 % (11.5-14.5); WHITE BLOOD COUNT 4.8 x10^3/uL (4.0-11.0)
[2017-03-23 05:52] LABS: BARBITURATES NEG (NEG); BENZODIAZEPINES NEG (NEG); CANNABINOIDS NEG (NEG); COCAINE NEG (NEG); METHADONE NEG (NEG); OPIATES NEG (NEG); PHENCYCLIDINE NEG (NEG)
[2017-03-23 05:53] LABS: AMPHETAMINE/METHAMPHETAMINE NEG (NEG)
[2017-03-23 05:58] LABS: ALBUMIN 3.4 g/dL (3.4-5.0); CALCIUM 8.5 mg/dL (8.5-10.1); CREATININE 0.7 mg/dL (0.7-1.3); DIRECT BILIRUBIN 0.2 mg/dL (0.0-0.2); GFR 151.1; POTASSIUM 3.9 mmol/L (3.5-5.1); TOTAL BILIRUBIN 0.8 mg/dL (0.2-1.0); TOTAL PROTEIN 7.9 g/dL (6.4-8.2)
[2017-03-23 06:00] LABS: ACETAMIN < 2.0 mcg/mL (10-30); ETHANOL < 10 mg/dL (0-10); SALIC < 0.2 mg/dL (2.8-20.0)
--- NOTE | 2017-03-23 06:33 | EKG ---
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
[2017-03-23 06:34] LABS: ANISOCYTOSIS SLIGHT; MICROCYTOSIS SLIGHT; PLT ESTIMATE ADEQUATE (ADEQUATE)
[2017-03-23 06:35] LABS: HYPOCHROMIA SLIGHT
== END 2017-03-23 08:29 | disposition home or self-care (01) ==
LOC: ER 05:04
DX: F20.9 Schizophrenia, unspecified (principal); E11.9 Type 2 diabetes mellitus without complications; Z59.0 Homelessness; F31.9 Bipolar disorder, unspecified; F41.9 Anxiety disorder, unspecified; Z91.012 Allergy to eggs; Z91.013 Allergy to seafood
CPT/HCPCS: 36415; 80048; 80076; 80305; 82947; 85008; 85027; 93005; 96374; 99285; G0480; J1630; G0481

== ENCOUNTER 2017-03-24 00:14 | Emergency (ER) | payer SELFPAY ==
[2017-03-23 05:20] VITALS: BP 120/66
== END 2017-03-24 01:28 | disposition home or self-care (01) ==
LOC: ER 00:14
DX: R44.0 Auditory hallucinations (principal); Z53.21 Procedure and treatment not carried out due to patient leaving prior to being seen by health care provider

== ENCOUNTER 2017-04-05 01:10 | Emergency (ER) | payer SELFPAY ==
[2017-04-05 01:10] VITALS: BP 137/86
--- NOTE | 2017-04-05 01:29 | PHYS DOC ---
Past History Past Medical History: Other Past Surgical History: Other Alcohol Use: None Drug Use: None Adult General Chief Complaint Chief Complaint: HALLUCINATIONS AUDIBLE/VISUAL HPI HPI Patient is a 41 year old M who presents with hallucinations. Patient states he is hearing voices however the was are not telling him to harm himself or anyone else. Patient states he is in no acute distress. Patient is known history of schizophrenia. Patient came in with no family at bedside. Patient is no other complaints. Review of Systems Review of Systems GEN: Hearing voices HEENT: Denies blurred vision, sore throat CV: Denies chest pain RESP: Denies shortness of air, cough GI: Denies n/v/d NEURO: Denies confusion, dizziness MSK: Denies weakness, joint pain/swelling Allergies Allergies Allergies Coded Allergies Type Severity Reaction Last Updated Verified egg Allergy Intermediate 03/16/17 Yes shellfish derived Allergy Intermediate 03/16/17 Yes Physical Exam Physical Exam GEN.: No apparent distress. Alert and oriented. HEENT: Head is normocephalic, atraumatic NECK: Supple. LUNGS: CTAB. HEART: RRR, S1, S2 present. Peripheral pulses intact ABDOMEN: Soft, nontender. Positive bowel sounds. EXTREMITIES: Without any cyanosis. NEUROLOGIC: Normal speech, normal tone PSYCHIATRIC: States he is hearing voices had however they're not telling to harm himself or anyone else SKIN: No ulcerations EKG EKG [] Radiology/Procedures Radiology/Procedures [] Course & Med Decision Making Course & Med Decision Making Pertinent Labs and Imaging studies reviewed. (See chart for details) ED course: Patient was seen and examined emergency room 0145: Patient is well known to the emergency department and since the patient is as baseline hallucinating do not believe any blood work is indicated at this time and psych telemetry has been consulted 0249: Discussed CC/HP/PMH with Dr. Gomez and recommends discharge home with follow-up and guidance Center MDM: After reviewing the chart, CC/HPI/PMH, physical exam, I do not believe the patient has emergent medical condition warranting further workup and/or admission at this time. Patient is not suicidal or homicidal after being evaluated by psych he is stable to be discharged with outpatient follow-up. Additional verbal discharge instructions were provided to the patient and that if symptoms get worse or any new symptoms arise that are worrisome to the patient he is to return to the emergency room immediately [] Dragon Disclaimer Dragon Disclaimer This chart was dictated in whole or in part using Voice Recognition software in a busy, high-work load, and often noisy Emergency Department environment. It may contain unintended and wholly unrecognized errors or omissions. Departure Departure: Impression: Primary Impression: Hallucination Referrals: PCP,NO (PCP) Patient Instructions: Schizophrenia Additional Instructions: Please follow up with the guidance Center in the next one to 2 days Scripts No Active Prescriptions or Reported Meds PAGE GUERRERO DO Apr 05, 2017 01:29
[2017-04-06] MEDS ORDERED: OLAN2.5T3 PO (18:55)
== END 2017-04-05 03:15 | disposition home or self-care (01) ==
LOC: ER 01:10
DX: R44.3 Hallucinations, unspecified (principal); F20.9 Schizophrenia, unspecified; Z91.012 Allergy to eggs; Z91.013 Allergy to seafood
CPT/HCPCS: 99281; 99284

== ENCOUNTER 2017-04-06 03:34 | Emergency (ER) | payer SELFPAY ==
[2017-04-06 04:14] LABS: BASO % 1 % (0-3); EOS # 0.2 x10^3/uL (0.0-0.7); EOS % 4 % (0-3); HEMATOCRIT 43.6 % (39.0-53.0); HEMOGLOBIN 14.1 g/dL (13.0-17.5); LYMPH # 1.9 x10^3/uL (1.0-4.8); LYMPH % 39 % (24-48); MEAN CORPUSCULAR HEMOGLOBIN 25 pg (25-35); MEAN CORPUSCULAR HGB CONC 32 g/dL (31-37); MEAN CORPUSCULAR VOLUME 76 fL (79-100); MONO # 0.4 x10^3/uL (0.0-1.1); MONO % 8 % (0-9); NEUT # 2.4 x10^3uL (1.8-7.7); NEUT % 48 % (31-73); PLATELET COUNT 244 x10^3/uL (140-400); RED BLOOD COUNT 5.76 x10^6/uL (4.30-5.70); RED CELL DISTRIBUTION WIDTH 15.1 % (11.5-14.5); WHITE BLOOD COUNT 4.9 x10^3/uL (4.0-11.0)
[2017-04-06 04:27] LABS: ALBUMIN 3.7 g/dL (3.4-5.0); ALBUMIN/GLOBULIN RATIO 0.8 (1.0-1.7); CALCIUM 8.8 mg/dL (8.5-10.1); CREATININE 0.7 mg/dL (0.7-1.3); GFR 151.1; POTASSIUM 4.2 mmol/L (3.5-5.1); TOTAL PROTEIN 8.5 g/dL (6.4-8.2)
[2017-04-06 06:00] VITALS: BP 99/69
--- NOTE | 2017-04-06 06:02 | EKG ---
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
--- NOTE | 2017-04-06 07:38 | RAD ---
Portable AP view CXR: Clinical indications: Chest pain tonight. Comparison: March 16, 2017. Findings: No acute lung infiltrate or pleural effusion or pulmonary edema or lung mass or pneumothorax is seen. The heart size, pulmonary vasculature, mediastinum and both tatianna are stable. Impression: No acute radiographic abnormality is seen.
[2017-04-06] MEDS ORDERED: OLAN2.5T3 PO (18:55)
--- NOTE | 2017-04-09 09:12 | ED.ADGEN ---
Past History Past Medical History: Other Past Surgical History: Other Alcohol Use: None Drug Use: None Adult General Chief Complaint Chief Complaint Chest pain HPI HPI Patient is a 41-year-old male presents with right-sided chest pain with no nausea vomiting or sweats. Symptoms began after coughing or choking earlier this evening is currently resolved No shortness of breath, palpitations, wheezing. No leg pain or swelling. No history of CAD, DVT or PE. No other acute symptoms or complaints. Review of Systems Review of Systems Review symptoms as per history of present illness. All other review symptoms are negative. Allergies Allergies Allergies Coded Allergies Type Severity Reaction Last Updated Verified egg Allergy Intermediate 03/16/17 Yes shellfish derived Allergy Intermediate 03/16/17 Yes Physical Exam Physical Exam Constitutional: Well developed, well nourished, no acute distress, non-toxic appearance. [] HENT: Normocephalic, atraumatic, bilateral external ears normal, oropharynx moist, no oral exudates, nose normal. [] Eyes: PERRLA, EOMI, conjunctiva normal, no discharge. [] Neck: Normal range of motion, no tenderness, supple, no stridor. [] Cardiovascular:Heart rate regular rhythm, no murmur [] Lungs & Thorax: Bilateral breath sounds are sided chest wall pain worse with palpation. Abdomen: Bowel sounds normal, soft, and parasternal chest wall tenderness, no subcutaneous air, crepitus. [] Skin: Warm, dry, no erythema, no rash. [] Back: No tenderness, no CVA tenderness. [] Extremities: No tenderness, no cyanosis, no clubbing, ROM intact, no edema. [] Neurologic: Alert and oriented X 3, normal motor function, normal sensory function, no focal deficits noted. [] Psychologic: Affect normal, judgement normal, mood normal. [] Current Patient Data Vital Signs Vital Signs Date Time Temp Pulse Resp B/P (MAP) Pulse Ox O2 Delivery O2 Flow Rate FiO2 04/06/17 06:00 98.0 58 20 99/69 (79) 95 Room Air Lab Results Laboratory Tests Test 04/06/17 04:00 White Blood Count 4.9 x10^3/uL (4.0-11.0) Red Blood Count 5.76 x10^6/uL (4.30-5.70) H Hemoglobin 14.1 g/dL (13.0-17.5) Hematocrit 43.6 % (39.0-53.0) Mean Corpuscular Volume 76 fL (79-100) L Mean Corpuscular Hemoglobin 25 pg (25-35) Mean Corpuscular Hemoglobin Concent 32 g/dL (31-37) Red Cell Distribution Width 15.1 % (11.5-14.5) H Platelet Count 244 x10^3/uL (140-400) Neutrophils (%) (Auto) 48 % (31-73) Lymphocytes (%) (Auto) 39 % (24-48) Monocytes (%) (Auto) 8 % (0-9) Eosinophils (%) (Auto) 4 % (0-3) H Basophils (%) (Auto) 1 % (0-3) Neutrophils # (Auto) 2.4 x10^3uL (1.8-7.7) Lymphocytes # (Auto) 1.9 x10^3/uL (1.0-4.8) Monocytes # (Auto) 0.4 x10^3/uL (0.0-1.1) Eosinophils # (Auto) 0.2 x10^3/uL (0.0-0.7) Basophils # (Auto) 0.0 x10^3/uL (0.0-0.2) Sodium Level 142 mmol/L (136-145) Potassium Level 4.2 mmol/L (3.5-5.1) Chloride Level 104 mmol/L (98-107) Carbon Dioxide Level 32 mmol/L (21-32) Anion Gap 6 (6-14) Blood Urea Nitrogen 13 mg/dL (8-26) Creatinine 0.7 mg/dL (0.7-1.3) Estimated GFR (Cockcroft-Gault) 151.1 BUN/Creatinine Ratio 19 (6-20) Glucose Level 83 mg/dL (70-99) Calcium Level 8.8 mg/dL (8.5-10.1) Total Bilirubin 1.0 mg/dL (0.2-1.0) Aspartate Amino Transferase (AST) 26 U/L (15-37) Alanine Aminotransferase (ALT) 22 U/L (16-63) Alkaline Phosphatase 80 U/L (46-116) Troponin I Quantitative < 0.017 ng/mL (0-0.055) Total Protein 8.5 g/dL (6.4-8.2) H Albumin 3.7 g/dL (3.4-5.0) Albumin/Globulin Ratio 0.8 (1.0-1.7) L EKG EKG [EKG: Normal sinus rhythm.] Radiology/Procedures Radiology/Procedures [Chest x-ray: No acute cardiopulmonary disease] Course & Med Decision Making Course & Med Decision Making Pertinent Labs and Imaging studies reviewed. (See chart for details) [Reproducible, nonexertional, chest wall pain resolved prior to ED arrival. Chest x-ray, EKG unremarkable. Recommend supportive care as needed with PCP follow-up. Return precautions reviewed.] Final Impression Final Impression [1. Chest pain] Problems: Dragon Disclaimer Dragon Disclaimer This electronic medical record was generated, in whole or in part, using a voice recognition dictation system. DEVIKA MUÑIZ DO Apr 09, 2017 09:12
== END 2017-04-06 06:00 | disposition home or self-care (01) ==
LOC: ER 03:34
DX: R07.89 Other chest pain (principal); Z91.012 Allergy to eggs; Z91.013 Allergy to seafood
CPT/HCPCS: 36415; 71010; 80053; 84484; 85027; 93005; 99285-25

== ENCOUNTER 2017-04-06 18:12 | Emergency (ER) | payer SELFPAY ==
[2017-04-06 18:25] VITALS: BP 133/86
--- NOTE | 2017-04-06 18:45 | PHYS DOC ---
Past History Past Medical History: Schizophrenia, Other Past Surgical History: Other Alcohol Use: None Drug Use: None Adult General Chief Complaint Chief Complaint: NAUSEA/VOMITING/DIARRHEA HPI HPI Patient is a 41 year old male who presents with complaint of hearing voices. The patient has history of schizophrenia and homelessness. Patient's had multiple visits to this emergency department for similar complaints. The patient was recently evaluated by tele-psychiatry on March 23, 2017 in the emergency department. They recommended starting the patient on Zyprexa therapy. The patient was placed on prescription Zyprexa at that time. The patient states that he has not been taking the medication over the past week due to cost. Patient states that he receives his SSI check on April 10 and states that he will be able to take the medication at that time. Patient states that he is hearing several voices in his head which he states are speaking to him in "Latin , like [place] Latin." Patient states that these voices are not commanding him to harm anyone or harm himself and he is not having any thoughts of suicidal or homicidal ideation. Patient states that he is getting a mild headache because of the voices but denies any other symptoms. Review of Systems Review of Systems Constitutional: Denies fever or chills [] Eyes: Denies change in visual acuity, redness, or eye pain [] HENT: Denies nasal congestion or sore throat [] Respiratory: Denies cough or shortness of breath [] Cardiovascular: Denies chest pain or edema [] GI: Denies abdominal pain, nausea, vomiting, bloody stools or diarrhea [] : Denies dysuria or hematuria [] Musculoskeletal: Denies back pain or joint pain [] Integument: Denies rash or skin lesions [] Neurologic: Headache, denies focal weakness or sensory changes Psychiatric: Auditory hallucinations, denies suicidal or homicidal ideation [] Current Medications Current Medications Current Medications Medications (Trade) Dose Ordered Sig/Rosey Start Time Stop Time Status Last Admin Dose Admin Olanzapine (ZyPREXA ZYDIS) 10 mg 1X STAT 04/06/17 18:34 04/06/17 18:38 DC 04/06/17 18:34 10 MG Allergies Allergies Allergies Coded Allergies Type Severity Reaction Last Updated Verified egg Allergy Intermediate 03/16/17 Yes shellfish derived Allergy Intermediate 03/16/17 Yes Physical Exam Physical Exam Constitutional: Well developed, well nourished, no acute distress, disheveled appearance. [] HENT: Normocephalic, atraumatic, bilateral external ears normal, oropharynx moist, no oral exudates, nose normal. [] Eyes: PERRLA, EOMI, conjunctiva normal, no discharge. [] Neck: Normal range of motion, no tenderness, supple, no stridor. [] Cardiovascular:Heart rate regular rhythm, no murmur [] Lungs & Thorax: Bilateral breath sounds clear to auscultation [] Abdomen: Bowel sounds normal, soft, no tenderness, no masses, no pulsatile masses. [] Skin: Warm, dry, no erythema, no rash. [] Back: No tenderness, no CVA tenderness. [] Extremities: No tenderness, no cyanosis, no clubbing, ROM intact, no edema. [] Neurologic: Alert and oriented X 3, normal motor function, normal sensory function, no focal deficits noted. [] Psychologic: Affect flat, judgement normal, mood normal, voices auditory hallucinations. [] Current Patient Data Vital Signs Vital Signs Date Time Temp Pulse Resp B/P (MAP) Pulse Ox O2 Delivery O2 Flow Rate FiO2 04/06/17 18:25 97.7 74 16 97 Room Air EKG EKG Not performed [] Radiology/Procedures Radiology/Procedures Not performed [] Course & Med Decision Making Course & Med Decision Making Pertinent Labs and Imaging studies reviewed. (See chart for details) Patient was given a Zyprexa Zydis tablet in the emergency department for treatment of auditory hallucinations. The patient was provided with a meal tray and oral fluids which he was able to tolerate without difficulty. Patient denies any other complaints. After speaking with the patient, we recommended to him upon discharge from the emergency department to go to the [facility] for further assistance. Recommended return to emergency department for any worsening symptoms. Patient voiced agreement to this and was discharged from the emergency department in stable condition. Dragon Disclaimer Dragon Disclaimer This chart was dictated in whole or in part using Voice Recognition software in a busy, high-work load, and often noisy Emergency Department environment. It may contain unintended and wholly unrecognized errors or omissions. Departure Departure: Impression: Primary Impression: Schizophrenia Disposition: HOME, SELF-CARE Condition: IMPROVED Referrals: PCP,NO (PCP) Patient Instructions: Schizophrenia Additional Instructions: Follow-up with the [facility] in the next 2-3 days for reevaluation. Return to the emergency department for any worsening symptoms. Scripts Olanzapine (ZYPREXA) 2.5 Mg Tablet 1 TAB PO QHS, #30 TAB 0 Refills Prov: EMERY GANDHI MD 04/06/17 Problem Qualifiers Primary Impression: Schizophrenia Schizophrenia type: unspecified Qualified Codes: F20.9 - Schizophrenia, unspecified EMERY GANDHI MD Apr 06, 2017 18:45
[2017-04-06] MEDS ORDERED: OLAN2.5T3 PO (18:55)
== END 2017-04-06 19:29 | disposition home or self-care (01) ==
LOC: ER 18:12
DX: F20.9 Schizophrenia, unspecified (principal); Z59.0 Homelessness; Z91.012 Allergy to eggs; Z91.013 Allergy to seafood
CPT/HCPCS: 99284

== ENCOUNTER 2017-04-07 17:31 | Emergency (ER) | payer SELFPAY ==
[~2017-04-07 17:31] MED LIST: OLAN2.5T3 PO
[2017-04-07 17:45] VITALS: BP 110/80
--- NOTE | 2017-04-07 18:26 | PHYS DOC ---
Past History Past Medical History: Schizophrenia, Other Past Surgical History: No Surgical History Alcohol Use: None Drug Use: None Adult General Chief Complaint Chief Complaint: HALLUCINATIONS AUDIBLE/VISUAL HPI HPI Patient is a 41-year-old zenaida who presents with complaint of hearing voices. Patient denies any suicidal ideation or homicidal ideation. Patient states the voices are not telling him to hurt himself or others. Patient has been previously evaluated in this ED and has been given referral to psychiatric services. Patient has no follow-up yet. Patient was under the mistaken impression that he needed to pay for services, I made him aware that that is not the case. Patient also has no filled up his percent congestion at and request a small amount of medicine by mouth. Patient has no other complaints. Review of Systems Review of Systems Constitutional: Denies fever or chills [] HENT: Denies nasal congestion or sore throat [] Respiratory: Denies cough or shortness of breath [] Cardiovascular: No chest pain GI: Denies abdominal pain, : Denies dysuria or hematuria [] Musculoskeletal: Denies back pain or joint pain [] Integument: Denies rash or skin lesions [] Neurologic: Denies headache, focal weakness or sensory changes [] Endocrine: Denies polyuria or polydipsia [] Psych: Denies HI or SI Allergies Allergies Allergies Coded Allergies Type Severity Reaction Last Updated Verified egg Allergy Intermediate 03/16/17 Yes shellfish derived Allergy Intermediate 03/16/17 Yes Physical Exam Physical Exam Constitutional: Well developed, well nourished, no acute distress, non-toxic appearance. [] HENT: Normocephalic, atraumatic,gns Eyes: EOMI, conjunctiva normal, no discharge. [] Neck: Normal range of motion, no tenderness, supple, no stridor. [] no LAD, no meningeal si Cardiovascular:Heart rate regular rhythm, no murmur []. Normal perfusion, no vascular insufficiency. Lungs & Thorax: Bilateral breath sounds clear to auscultation []. No tachypnea Abdomen: Bowel sounds normal, soft, no tenderness.] Skin: Warm, dry, no erythema, no rash. [] Back: No tenderness, no CVA tenderness. [] Extremities: No tenderness, no cyanosis, no clubbing, ROM intact, no edema. [] Neurologic: Alert and oriented X 3, normal motor function, ambulates in the ED with normal gait and without assistance no focal deficits noted. [] Psychologic: Affect normal, judgement normal, mood normal. Denies SI or HI Current Patient Data Vital Signs Vital Signs Date Time Temp Pulse Resp B/P (MAP) Pulse Ox O2 Delivery O2 Flow Rate FiO2 04/07/17 17:45 98.3 80 12 98 Room Air EKG EKG [] Radiology/Procedures Radiology/Procedures [] Course & Med Decision Making Course & Med Decision Making Pertinent Labs and Imaging studies reviewed. (See chart for details) [] Dragon Disclaimer Dragon Disclaimer This chart was dictated in whole or in part using Voice Recognition software in a busy, high-work load, and often noisy Emergency Department environment. It may contain unintended and wholly unrecognized errors or omissions. Departure Departure: Impression: Primary Impression: Hallucination Condition: STABLE Referrals: PCP,NO (PCP) Patient Instructions: Hallucinations and Delusions Additional Instructions: Please follow-up with previously given referrals. Matthew NEVAREZ MD Apr 07, 2017 18:26
[2017-04-07] MEDS ORDERED: DIVALPROEX SODIUM 125 MG TABLET.DR. PO ONE (18:45)
[2017-04-07] MEDS ORDERED: OLANZapine 2.5 MG TABLET PO ONE (18:45)
== END 2017-04-07 18:32 | disposition home or self-care (01) ==
LOC: ER 17:31
DX: R44.3 Hallucinations, unspecified (principal); F20.9 Schizophrenia, unspecified; Z91.012 Allergy to eggs; Z91.013 Allergy to seafood
CPT/HCPCS: 99283; 99284

== ENCOUNTER 2017-04-08 04:30 | Emergency (ER) | payer SELFPAY ==
[2017-04-08 04:41] VITALS: BP 157/86
--- NOTE | 2017-04-08 05:13 | PHYS DOC ---
Past History Past Medical History: Schizophrenia, Other Past Surgical History: No Surgical History Alcohol Use: None Drug Use: None Adult General Chief Complaint Chief Complaint: NAUSEA/VOMITING/DIARRHEA HPI HPI Patient is a 41-year-old male presents with complaint of nausea. Patient has not complaints. Review of Systems Review of Systems Constitutional: Denies fever or chills [] HENT: Denies nasal congestion or sore throat [] Respiratory: Denies cough or shortness of breath [] Cardiovascular: No additional information not addressed in HPI [] GI: Denies abdominal pain, nausea, vomiting, bloody stools or diarrhea [] : Denies dysuria or hematuria [] Musculoskeletal: Denies back pain or joint pain [] Integument: Denies rash or skin lesions [] Neurologic: Denies headache, focal weakness or sensory changes [] Allergies Allergies Allergies Coded Allergies Type Severity Reaction Last Updated Verified egg Allergy Intermediate 03/16/17 Yes shellfish derived Allergy Intermediate 03/16/17 Yes Physical Exam Physical Exam Constitutional: Well developed, well nourished, no acute distress, non-toxic appearance. [] HENT: Normocephalic, atraumatic, Eyes: EOMI, conjunctiva normal, no discharge. [] Neck: Normal range of motion, no tenderness, supple, no stridor. [] Cardiovascular:Heart rate regular rhythm, no murmur [] Lungs & Thorax: Bilateral breath sounds clear to auscultation [] Abdomen: Bowel sounds normal, soft, no tenderness, no masses, no pulsatile masses. [] Skin: Warm, dry, no erythema, no rash. [] Back: No tenderness, no CVA tenderness. [] Extremities: No tenderness, no cyanosis, no clubbing, ROM intact, no edema. [] Neurologic: Alert and oriented X 3, normal motor function, ambulates with normal gait and without assistance, no focal deficits noted. [] Psychologic: Affect normal, judgement normal, mood normal. [] Current Patient Data Vital Signs Vital Signs Date Time Temp Pulse Resp B/P (MAP) Pulse Ox O2 Delivery O2 Flow Rate FiO2 04/08/17 04:41 97.4 60 20 100 Room Air EKG EKG [] Radiology/Procedures Radiology/Procedures [] Course & Med Decision Making Course & Med Decision Making Pertinent Labs and Imaging studies reviewed. (See chart for details) [] Dragon Disclaimer Dragon Disclaimer This chart was dictated in whole or in part using Voice Recognition software in a busy, high-work load, and often noisy Emergency Department environment. It may contain unintended and wholly unrecognized errors or omissions. Departure Departure: Impression: Primary Impression: Nausea Disposition: 01 HOME, SELF-CARE Condition: STABLE Referrals: PCP,NO (PCP) Patient Instructions: Nausea, Adult Matthew NEVAREZ MD Apr 08, 2017 05:13
== END 2017-04-08 05:10 | disposition home or self-care (01) ==
LOC: ER 04:30
DX: R11.0 Nausea (principal); F20.9 Schizophrenia, unspecified; Z91.012 Allergy to eggs; Z91.013 Allergy to seafood
CPT/HCPCS: 99281

== ENCOUNTER 2017-04-09 21:21 | Emergency (ER) | payer SELFPAY ==
[2017-04-09 21:21] VITALS: BP 135/77
--- NOTE | 2017-04-09 21:35 | PHYS DOC ---
Past History Past Medical History: Schizophrenia, Other Past Surgical History: No Surgical History Alcohol Use: None Drug Use: None Adult General Chief Complaint Chief Complaint: hallucinations HPI HPI Patient is a 41 year old male who presents with nosebleed. States he had left sided epistaxis earlier today which completely resolved. He also had a mild headache which is resolved as well. He has auditory hallucinations which are typical for him. He has history of schizophrenia. Denies suicidal ideation. He would like some juice. Review of Systems Review of Systems Constitutional: Denies fever or chills HENT: Reports epistaxis Respiratory: Denies cough Cardiovascular: Denies chest pain GI: Denies abdominal pain, nausea, vomiting Musculoskeletal: Denies back pain or joint pain Integument: Denies rash Neurologic: Reports headache Psychiatric: reports auditory hallucinations. Allergies Allergies Allergies Coded Allergies Type Severity Reaction Last Updated Verified egg Allergy Intermediate 03/16/17 Yes shellfish derived Allergy Intermediate 03/16/17 Yes Physical Exam Physical Exam Constitutional: Well developed, well nourished, no acute distress, non-toxic appearance. HENT: Normocephalic, atraumatic, bilateral external ears normal, oropharynx moist, nose normal. no active bleeding from the nares Eyes: PERRLA, EOMI, conjunctiva normal, no discharge. Neck: supple, no stridor. no meningismus Cardiovascular: no edema. Lungs & Thorax: no respiratory distress. Abdomen: nondistended. Skin: Warm, dry, no erythema, no rash. Extremities: No deformity Neurologic: Alert and oriented X 3 EKG EKG [] Radiology/Procedures Radiology/Procedures [] Course & Med Decision Making Course & Med Decision Making Pertinent Labs and Imaging studies reviewed. (See chart for details) The patient presents with resolved symptoms, has no complaints at time of arrival. Gave juice. He already plans to follow up at [facility] tomorrow. Recommend take all medications as prescribed. Apply direct pressure if epistaxis recurs. Take tylenol or ibuprofen for headache. Patient is discharged home in stable condition. [] Dragon Disclaimer Dragon Disclaimer This chart was dictated in whole or in part using Voice Recognition software in a busy, high-work load, and often noisy Emergency Department environment. It may contain unintended and wholly unrecognized errors or omissions. Departure Departure: Impression: Primary Impression: Hallucination Disposition: 01 HOME, SELF-CARE Condition: STABLE Referrals: PCP,NO (PCP) Patient Instructions: Hallucinations and Delusions Additional Instructions: You were seen in the emergency department today. Please take Tylenol or ibuprofen for headache. Apply direct pressure for nosebleed. Follow-up at the [facility] for ongoing treatment mental health disorders. ZA CHACON MD Apr 09, 2017 21:35
== END 2017-04-09 21:45 | disposition home or self-care (01) ==
LOC: ER 21:21
DX: R44.0 Auditory hallucinations (principal); R51 Headache; F20.9 Schizophrenia, unspecified; Z91.012 Allergy to eggs; Z91.013 Allergy to seafood
CPT/HCPCS: 99281

== ENCOUNTER 2017-04-12 03:43 | Emergency (ER) | payer SELFPAY ==
[2017-04-12] MEDS ORDERED: OLANZapine 2.5 MG TABLET PO ONE (04:15)
--- NOTE | 2017-04-12 04:17 | PHYS DOC ---
General Chief Complaint: HALLUCINATIONS AUDIBLE/VISUAL Stated Complaint: HEARING VOICES Time Seen by MD: 04:08 Source: patient, old records Exam Limitations: no limitations Problems: History of Present Illness Initial Comments Patient is a 41 year old male who presents with complaint of hearing voices. The patient has history of schizophrenia and homelessness. Patient's had multiple visits to this emergency department for similar complaints. The patient was recently evaluated by tele-psychiatry on March 23, 2017 in the emergency department. They recommended starting the patient on Zyprexa therapy. The patient was placed on prescription Zyprexa at that time. The patient states that he has not been taking the medication over the past week due to cost. The patient has started coming to the emergency department almost daily for his Zyprexa. He was seen here on April 06 and on that day she stated that he received his SSI check April 10 and would be able to purchase his medications at that time. I asked the patient at the had filled his prescription. He said he had not due to insufficient funds. I mentioned to him that I saw in the prior note that he would receive his SSI check on April 10 and I asked him when he thought he might get that prescription filled. He became insulting at that point accusing me of being a fake doctor, an imposter and that he was going to report me for abuse and practicing without and doctor. He began raising his voice and escalating and I advised him at that point that I would give him his Zyprexa and he will be discharged to [facility] with the [facility]. My concern is that the patient is using this facility as not only his primary care physician but also as his personal medication storage facility. It does not do him a service to not follow-up with psychiatry or the guidance center and yet to continue to give him his daily medication dosage whenever he sees fit. Timing/Duration: other Severity: moderate Modifying Factors: improves with medication Associated Symptoms: other Allergies: Coded Allergies: egg (Verified Allergy, Intermediate, 03/16/17) shellfish derived (Verified Allergy, Intermediate, 03/16/17) Past Medical History Medical History: other (schizophrenia) Surgical History: noncontributory Social History Smoker: other (denies) Alcohol: other (denies) Drugs: other (denies) Review of Systems Constitutional: denies chills, denies diaphoresis, denies fever EENTM: denies eye pain, denies ear pain, denies nose pain Respiratory: denies cough, denies shortness of breath Cardiovascular: denies chest pain, denies palpitations, denies syncope Gastrointestinal: denies diarrhea, denies nausea, denies vomiting Musculoskeletal: denies back pain, denies joint swelling, denies neck pain Psychiatric/Neurological: see HPI Physical Exam General Appearance: WD/WN, no apparent distress Eyes: bilateral eye normal inspection, bilateral eye PERRL, bilateral eye EOMI Ear, Nose, Throat: hearing grossly normal, normal ENT inspection Neck: non-tender, supple Respiratory: normal breath sounds, no respiratory distress Cardiovascular: normal peripheral pulses, regular rate, rhythm Gastrointestinal: non tender, soft Back: no CVA tenderness, no vertebral tenderness Extremities: non-tender, normal inspection Neurologic/Psychiatric: transmitter chief II-XII nml as tested, no motor/sensory deficits, alert, oriented x 3, other (flat affect, pressured tangential speech, confrontational with reported hallucinations) Skin: normal color, warm/dry Orders, Labs, Meds I did agree to give the patient his Zyprexa 2.5 mg in the emergency department. I discussed with him the need to fill his prescription medication and to follow- up with the [facility] as directed. The patient continued with his insults towards me until I was no longer within hearing distance. Departure Time of Disposition: 04:16 Disposition: HOME, SELF-CARE Diagnosis: schizophrenia, noncompliance, Condition: STABLE Patient Instructions: Schizophrenia Additional Instructions: Fill prescription and take medications as prescribed to avoid frequent emergency department visits. [facility]. Return to the ED with new emergent conditions. ARIE SHEIKH DO Apr 12, 2017 04:17
[2017-04-12 04:25] VITALS: BP 111/75
== END 2017-04-12 04:25 | disposition home or self-care (01) ==
LOC: ER 03:43
DX: F20.9 Schizophrenia, unspecified (principal); Z59.0 Homelessness; Z91.19 Patient's noncompliance with other medical treatment and regimen; Z91.012 Allergy to eggs; Z91.013 Allergy to seafood
CPT/HCPCS: 99284

== ENCOUNTER 2017-04-13 03:35 | Emergency (ER) | payer SELFPAY ==
--- NOTE | 2017-04-13 04:11 | PHYS DOC ---
Past History Past Medical History: Anxiety, Depression, Schizophrenia, Other Past Surgical History: No Surgical History Alcohol Use: None Drug Use: None Adult General Chief Complaint Chief Complaint: COUGH HPI HPI Patient is a 41 year old M who presents with a cough. Patient is a known schizophrenic who is homeless who is been on renal night and comes emergency room for increased cough with no fever. Patient denies any other symptoms. Patient denies any chest pain or or nausea/vomiting/diarrhea. Patient denies any fevers. Review of Systems Review of Systems GEN: Denies fevers, chills, sweats HEENT: Denies blurred vision, sore throat CV: Denies chest pain RESP: cough GI: Denies n/v/d NEURO: Denies confusion, dizziness MSK: Denies weakness, joint pain/swelling Allergies Allergies Allergies Coded Allergies Type Severity Reaction Last Updated Verified egg Allergy Intermediate 03/16/17 Yes shellfish derived Allergy Intermediate 03/16/17 Yes Physical Exam Physical Exam GEN.: No apparent distress. Alert and oriented. HEENT: Head is normocephalic, atraumatic NECK: Supple. LUNGS: CTAB. HEART: RRR, S1, S2 present. Peripheral pulses intact ABDOMEN: Soft, nontender. Positive bowel sounds. EXTREMITIES: Without any cyanosis. NEUROLOGIC: Normal speech, normal tone PSYCHIATRIC: Hallucinating and talking to people which is his baseline SKIN: No ulcerations Current Patient Data Vital Signs Vital Signs Date Time Temp Pulse Resp B/P (MAP) Pulse Ox O2 Delivery O2 Flow Rate FiO2 04/13/17 03:44 97.6 58 20 99 Room Air EKG EKG [] Radiology/Procedures Radiology/Procedures Chest x-ray NAD [] Course & Med Decision Making Course & Med Decision Making Pertinent Labs and Imaging studies reviewed. (See chart for details) MDM: After reviewing the chart, CC/HPI/PMH, physical exam, [radiological results], I do not believe the patient has emergent medical condition warranting further workup and/or admission at this time. Patient is a known frequent flier to the emergency room with a known history of schizophrenia and patient is at his baseline. Patient is stable be discharged. Patient does not need a psychiatric workup at this time. Patient states he is not suicidal or homicidal. Additional verbal discharge instructions were provided to the patient and that if symptoms get worse or any new symptoms arise that are worrisome to the patient he is to return to the emergency room immediately [] Dragon Disclaimer Dragon Disclaimer This chart was dictated in whole or in part using Voice Recognition software in a busy, high-work load, and often noisy Emergency Department environment. It may contain unintended and wholly unrecognized errors or omissions. Departure Departure: Impression: Primary Impression: Cough Disposition: 01 HOME, SELF-CARE Condition: IMPROVED Referrals: PCP,NO (PCP) Patient Instructions: Cough, Adult, [id number] Additional Instructions: Please follow up with your family doctor in the next one to 2 days PAGE GUERRERO DO Apr 13, 2017 04:11
[2017-04-13 04:37] VITALS: BP 124/83
--- NOTE | 2017-04-13 08:06 | RAD ---
Indication cough and congestion. PA and lateral views of the chest were obtained and are compared to an examination 04/06/2017. There is mild cardiac enlargement. The pulmonary vasculature is normal.. Visualized bony structures appear grossly intact. There has not, overall, been a significant change in the appearance of the chest. IMPRESSION: No acute or focal process. No significant change
== END 2017-04-13 04:37 | disposition home or self-care (01) ==
LOC: ER 03:35
DX: R05 Cough (principal); F20.9 Schizophrenia, unspecified; F41.9 Anxiety disorder, unspecified; F32.9 Major depressive disorder, single episode, unspecified; Z59.0 Homelessness; Z91.012 Allergy to eggs; Z91.013 Allergy to seafood
CPT/HCPCS: 71020; 99284

== ENCOUNTER 2017-04-14 08:50 | Emergency (ER) | payer SELFPAY ==
[~2017-04-14] VITALS: Ht 167.6 cm; Wt 79.4 kg
[2017-04-14 09:00] VITALS: BP 109/72
--- NOTE | 2017-04-14 09:09 | PHYS DOC ---
Past History Past Medical History: Anxiety, Depression, Schizophrenia, Other Past Surgical History: No Surgical History Alcohol Use: None Drug Use: None Adult General Chief Complaint Chief Complaint: HALLUCINATIONS AUDIBLE/VISUAL HPI HPI 41-year-old male presenting to the emergency department today reporting hearing voices. He reports hearing voices intermittently chronically for years. He denies the voices are giving him commands. He reports that the voices are difficult to hear. He denies suicidal or homicidal ideation. He denies spending large portions of money. He denies history of depression or anxiety. Onset today. Location brain. Duration intermittent. No alleviating or exacerbating factors present. Review of systems is negative for chest pain shortness of breath fevers chills headache neck stiffness abdominal pain. All other review of systems is negative unless otherwise noted in history of present illness. ED course: 41-year-old gentleman presenting to the emergency department with intermittent hearing voices. This appears to be a chronic problem for the patient. Clinical evaluation does not suggest acute psychosis. Patient denies suicidal or homicidal ideation. The patient is not on any antipsychotic medications and denies history of schizophrenia. I recommended the patient be referred as an outpatient to our local mental health services for psychiatric evaluation and care. I do not believe the patient needs to be admitted involuntarily for his safety or for other safety. He does not appear to be a danger to others or himself at this time. The patient was then discharged home in stable condition to follow up with their primary care physician over the next 2-3 days. They were to return if their symptoms worsened or if they were concerned for any reason. [id number] discharge instructions and return precautions were given. Patient's questions were answered to their satisfaction. Patient is comfortable plan. Review of Systems Review of Systems SEE ABOVE. Allergies Allergies Allergies Coded Allergies Type Severity Reaction Last Updated Verified egg Allergy Intermediate 03/16/17 Yes shellfish derived Allergy Intermediate 03/16/17 Yes Physical Exam Physical Exam see above Constitutional: Well developed, well nourished, no acute distress, non-toxic appearance. [] HENT: Normocephalic, atraumatic, bilateral external ears normal, oropharynx moist, no oral exudates, nose normal. [] Eyes: PERRLA, EOMI, conjunctiva normal, no discharge. [] Neck: Normal range of motion, no tenderness, supple, no stridor. [] Cardiovascular:Heart rate regular rhythm, no murmur [] Lungs & Thorax: Bilateral breath sounds clear to auscultation [] Abdomen: Bowel sounds normal, soft, no tenderness, no masses, no pulsatile masses. [] Skin: Warm, dry, no erythema, no rash. [] Back: No tenderness, no CVA tenderness. [] Extremities: No tenderness, no cyanosis, no clubbing, ROM intact, no edema. [] Neurologic: Alert and oriented X 3, normal motor function, normal sensory function, no focal deficits noted. [] Psychologic: Psych: Appearance: mildly disheveled M/S: Alert and oriented Mood/Affect: Normal/congruent Speech: pressure Insight: Normal Hallucinations: None SI or HI: None EKG EKG [] Radiology/Procedures Radiology/Procedures [] Course & Med Decision Making Course & Med Decision Making Pertinent Labs and Imaging studies reviewed. (See chart for details) [] Dragon Disclaimer Dragon Disclaimer This chart was dictated in whole or in part using Voice Recognition software in a busy, high-work load, and often noisy Emergency Department environment. It may contain unintended and wholly unrecognized errors or omissions. Departure Departure: Impression: Primary Impression: Hallucination Disposition: HOME, SELF-CARE Condition: STABLE Referrals: PCP,STEVE (PCP) Additional Instructions: Follow-up with our local mental health facilities at: [address] [place] [id number] Thank you for allowing us to participate in your care today. Followup with your primary care physician in 3 days if your symptoms do not improve. Call your Primary Doctor tomorrow and inform them of your visit today. If you do not have a primary care provider you can ask for a list of our primary care providers. Return to the emergency department you have any new or concerning findings. This should be evaluated by the primary care physician and any necessary consulting services for continued management within a few days after discharge. Return to emergency room if you have any new or concerning symptoms including but not limited to fever, chills, nausea, vomiting, intractable pain, any new rashes, chest pain, shortness of air, uncontrolled bleeding, difficulty breathing, and/or vision loss. SIERRA BAUTISTA MD Apr 14, 2017 09:09
== END 2017-04-14 09:11 | disposition home or self-care (01) ==
LOC: ER 08:50
DX: R44.0 Auditory hallucinations (principal); F20.9 Schizophrenia, unspecified; F41.9 Anxiety disorder, unspecified; F32.9 Major depressive disorder, single episode, unspecified; Z91.012 Allergy to eggs; Z91.013 Allergy to seafood
CPT/HCPCS: 99284

== ENCOUNTER 2017-04-22 21:17 | Emergency (ER) | payer SELFPAY ==
[2017-04-22 21:31] VITALS: BP 122/73
--- NOTE | 2017-04-22 21:57 | EKG ---
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
--- NOTE | 2017-04-23 01:14 | ED.ADGEN ---
Past History Past Medical History: Asthma, Diabetes, Schizophrenia Past Surgical History: Other Alcohol Use: None Drug Use: None Adult General HPI HPI Patient is a 41-year-old man, history of asthma, tendinitis diabetes mellitus, schizophrenia, who presents to the emergency department with a complaint of left -sided rib pain. Patient denies any injuries, any shortness of breath, any nausea or vomiting, states that "I just want to get checked out". However, when I attempt to examine the patient, he declines to be examined and states "I'm ready to book out of here." Patient with a heart rate of 68, oxygen saturations 90% room air, respiratory rate is 20 and unlabored, blood pressure is 122/73. Patient is well-appearing, seated upright in the chair with his belongings at his feet. Patient is well-known to emergency department staff for multiple visits with multiple different complaints, and is known to be homeless. Review of Systems Review of Systems Constitutional: Denies fever or chills [] Eyes: Denies change in visual acuity, redness, or eye pain [] HENT: Denies nasal congestion or sore throat [] Respiratory: Denies cough or shortness of breath [] Cardiovascular: No additional information not addressed in HPI [] GI: Denies abdominal pain, nausea, vomiting, bloody stools or diarrhea [] : Denies dysuria or hematuria [] Musculoskeletal: Denies back pain or joint pain, complaining of left-sided rib pain. Integument: Denies rash or skin lesions [] Neurologic: Denies headache, focal weakness or sensory changes [] Endocrine: Denies polyuria or polydipsia [] Allergies Allergies Allergies Coded Allergies Type Severity Reaction Last Updated Verified egg Allergy Intermediate 04/14/17 Yes shellfish derived Allergy Intermediate 04/14/17 Yes Physical Exam Physical Exam Constitutional: Well developed, well nourished, no acute distress, non-toxic appearance. [] HENT: Normocephalic, atraumatic, bilateral external ears normal. [] Eyes: PERRLA, EOMI, conjunctiva normal, no discharge. [] Back: No tenderness, no CVA tenderness. [] Extremities: No tenderness, no cyanosis, no clubbing, ROM intact, no edema. [] Neurologic: Alert and oriented X 3, normal motor function, normal sensory function, no focal deficits noted. [] Psychologic: Affect normal, judgement normal, mood normal. [] Current Patient Data Vital Signs Vital Signs Date Time Temp Pulse Resp B/P (MAP) Pulse Ox O2 Delivery O2 Flow Rate FiO2 04/22/17 21:31 98.7 68 20 99 Room Air EKG EKG EC: Sinus rhythm, heart rate 64 beats are minute, left axis deviation, QTC of 44, GA 154, QRS 104, patient with contour abnormality noted in the anterior septal leads, consistent with likely left ventricular hypertrophy. Abnormal ECG, does not meet STEMI criteria. As interpreted by me. [] Radiology/Procedures Radiology/Procedures [] Course & Med Decision Making Course & Med Decision Making Pertinent Labs and Imaging studies reviewed. (See chart for details) Patient with vital signs within normal limits, is calm and appropriate in his speech, but declined additional evaluation at this time, including allowing me to listen to his lungs or examine her he states he is having discomfort. He states that he is feeling fine right now, and wants to leave. I discussed with patient that she will need to sinus medical advice in this case, as he is not allowing me to perform a full examination. Patient voices understanding, was presented with AMA paperwork but did decline to sign it. Patient exited the emergency department without issue. Final Impression Final Impression [] Problems: Dragon Disclaimer Dragon Disclaimer This electronic medical record was generated, in whole or in part, using a voice recognition dictation system. Departure: Impression: Primary Impression: Left against medical advice Disposition: AGAINST MEDICAL ADVICE Condition: STABLE BERHANE SALCEDO DO Apr 23, 2017 01:14
== END 2017-04-22 22:25 | disposition left against medical advice (07) ==
LOC: ER 21:17
DX: R07.81 Pleurodynia (principal); J45.909 Unspecified asthma, uncomplicated; E11.9 Type 2 diabetes mellitus without complications; F20.9 Schizophrenia, unspecified; Z59.0 Homelessness; Z91.012 Allergy to eggs; Z91.013 Allergy to seafood
CPT/HCPCS: 93005; 99283-25

== ENCOUNTER 2017-04-23 23:20 | Emergency (ER) | payer SELFPAY ==
[~2017-04-23] VITALS: Ht 167.6 cm; Wt 79.4 kg
--- NOTE | 2017-04-23 23:47 | PHYS DOC ---
Past History Past Medical History: Asthma, Diabetes, Schizophrenia Past Surgical History: Other Alcohol Use: None Drug Use: None Adult General Chief Complaint Chief Complaint: OTHER COMPLAINTS HPI HPI Patient is a 41-year-old gentleman who has a history significant for poorly controlled schizophrenia secondary to noncompliance with his medication presents here today secondary to hearing nonthreatening forces. Patient reports he hears a lot of forces and lack and which is the same language his churches to speak. Patient denies any other symptomatology. Patient has any fevers shakes chills nausea vomiting or diarrhea. Patient has any cough cold or runny nose. Patient has any chest pain or shortness of breath. Patient reports he is not taking his Zyprexa or Depakote. Patient reports that he does have follow-up scheduled with the crisis Center however he has not yet followed up with them. Patient denies any suicidal or homicidal ideation. Patient's ER physical exam is significant for a normal exam. Patient's heart was regular rate and rhythm. Lungs were clear no wheezing rales or rhonchi. Abdomen was soft nontender no rebound or guarding. Patient denies any homicidal or suicidal ideation. Patient does not appear to be responding to internal stimuli. Patient appears appropriate in his mannerisms. Assessment and plan 41-year-old gentleman with chronic schizophrenia without any new issues at this time. Patient has been noncompliant with his medication. I have encouraged the patient to take his medications and to follow-up with the crisis Center as has been instructed for him before. Patient does not appear to be a harm to self or others at this time. Patient will be discharged home in stable condition. Review of Systems Review of Systems Constitutional: Denies fever or chills [] Eyes: Denies change in visual acuity, redness, or eye pain [] HENT: Denies nasal congestion or sore throat [] Respiratory: Denies cough or shortness of breath [] Cardiovascular: No additional information not addressed in HPI [] GI: Denies abdominal pain, nausea, vomiting, bloody stools or diarrhea [] : Denies dysuria or hematuria [] Musculoskeletal: Denies back pain or joint pain [] Integument: Denies rash or skin lesions [] Neurologic: Denies headache, focal weakness or sensory changes [] Endocrine: Denies polyuria or polydipsia [] Allergies Allergies Allergies Coded Allergies Type Severity Reaction Last Updated Verified egg Allergy Intermediate 04/14/17 Yes shellfish derived Allergy Intermediate 04/14/17 Yes Physical Exam Physical Exam Constitutional: Well developed, well nourished, no acute distress, non-toxic appearance. [] HENT: Normocephalic, atraumatic, bilateral external ears normal, oropharynx moist, no oral exudates, nose normal. [] Eyes: PERRLA, EOMI, conjunctiva normal, no discharge. [] Neck: Normal range of motion, no tenderness, supple, no stridor. [] Cardiovascular:Heart rate regular rhythm, no murmur [] Lungs & Thorax: Bilateral breath sounds clear to auscultation [] Abdomen: Bowel sounds normal, soft, no tenderness, no masses, no pulsatile masses. [] Skin: Warm, dry, no erythema, no rash. [] Back: No tenderness, no CVA tenderness. [] Extremities: No tenderness, no cyanosis, no clubbing, ROM intact, no edema. [] Neurologic: Alert and oriented X 3, normal motor function, normal sensory function, no focal deficits noted. [] Psychologic: Affect normal, judgement normal, mood normal. [] EKG EKG [] Radiology/Procedures Radiology/Procedures [] Course & Med Decision Making Course & Med Decision Making Pertinent Labs and Imaging studies reviewed. (See chart for details) [] Dragon Disclaimer Dragon Disclaimer This chart was dictated in whole or in part using Voice Recognition software in a busy, high-work load, and often noisy Emergency Department environment. It may contain unintended and wholly unrecognized errors or omissions. Departure Departure: Impression: Primary Impression: Schizophrenia Disposition: 01 HOME, SELF-CARE Condition: STABLE Referrals: PCP,NO (PCP) Patient Instructions: Schizophrenia Additional Instructions: Please take the medications that have been prescribed to by her mental health specialist. Please follow up with the crisis Center as soon as he can. Problem Qualifiers Primary Impression: Schizophrenia Schizophrenia type: unspecified Qualified Codes: F20.9 - Schizophrenia, unspecified YOGESH NGUYEN MD Apr 23, 2017 23:47
[2017-04-23 23:53] VITALS: BP 136/84
== END 2017-04-23 23:53 | disposition home or self-care (01) ==
LOC: ER 23:20
DX: F20.9 Schizophrenia, unspecified (principal); Z91.14 Patient's other noncompliance with medication regimen; J45.909 Unspecified asthma, uncomplicated; E11.9 Type 2 diabetes mellitus without complications; Z91.012 Allergy to eggs; Z91.013 Allergy to seafood
CPT/HCPCS: 99284

== ENCOUNTER 2017-04-24 20:26 | Emergency (ER) | payer SELFPAY ==
[~2017-04-24] VITALS: Ht 167.6 cm; Wt 79.4 kg
[2017-04-24 20:55] VITALS: BP 103/69
--- NOTE | 2017-04-24 22:33 | PHYS DOC ---
Past History Past Medical History: Asthma, Diabetes, Schizophrenia Past Surgical History: Other Alcohol Use: None Drug Use: None Adult General Chief Complaint Chief Complaint: OTHER COMPLAINTS HPI HPI Patient is a 41 year old M who presents with "not wanting to sleep on concrete" . Rodrick has no complaints at this time. His history is limited by his cognitive ability. He frequently has outbursts which she calls "tics", related to his Tourette's. Review of Systems Review of Systems Constitutional: Denies fever or chills [] Eyes: Denies change in visual acuity, redness, or eye pain [] HENT: Denies nasal congestion or sore throat [] Respiratory: Denies cough or shortness of breath [] Cardiovascular: No additional information not addressed in HPI [] GI: Denies abdominal pain, nausea, vomiting, bloody stools or diarrhea [] : Denies dysuria or hematuria [] Musculoskeletal: Denies back pain or joint pain [] Integument: Denies rash or skin lesions [] Neurologic: Denies headache, focal weakness or sensory changes [] Endocrine: Denies polyuria or polydipsia [] Family History Family History Noncontributory Current Medications Current Medications Medications were reviewed Allergies Allergies Allergies Coded Allergies Type Severity Reaction Last Updated Verified egg Allergy Intermediate 04/14/17 Yes shellfish derived Allergy Intermediate 04/14/17 Yes Physical Exam Physical Exam Constitutional: Well developed, well nourished, no acute distress, non-toxic appearance. [] HENT: Normocephalic, atraumatic, bilateral external ears normal, oropharynx moist, no oral exudates, nose normal. [] Eyes: PERRLA, EOMI, conjunctiva normal, no discharge. [] Neck: Normal range of motion, no tenderness, supple, no stridor. [] Cardiovascular:Heart rate regular rhythm, no murmur [] Lungs & Thorax: Bilateral breath sounds clear to auscultation [] Abdomen: Bowel sounds normal, soft, no tenderness, no masses, no pulsatile masses. [] Skin: Warm, dry, no erythema, no rash. [] Extremities: No tenderness, no cyanosis, no clubbing, ROM intact, no edema. [] Neurologic: Alert and oriented X 3, normal motor function, normal sensory function, no focal deficits noted. [] Psychologic: Agitated and tangential. Occasionally aggressive Current Patient Data Vital Signs Vital Signs Date Time Temp Pulse Resp B/P (MAP) Pulse Ox O2 Delivery O2 Flow Rate FiO2 04/24/17 20:55 98.7 66 16 100 Room Air Course & Med Decision Making Course & Med Decision Making Pertinent Labs and Imaging studies reviewed. (See chart for details) Rodrick's history and physical is limited due to his psychiatric diagnoses. He has no complaints or physical exam findings. Dragon Disclaimer Dragon Disclaimer This chart was dictated in whole or in part using Voice Recognition software in a busy, high-work load, and often noisy Emergency Department environment. It may contain unintended and wholly unrecognized errors or omissions. Departure Departure: Impression: Primary Impression: General medical exam Disposition: HOME, SELF-CARE Condition: STABLE Referrals: PCPSTEVE (PCP) Patient Instructions: Medical Screening Exam Additional Instructions: Ishmael was seen in the emergency room for general complaints. No emergency medical condition was found on history or physical exam. He was advised to follow-up with his primary care doctor as needed. Is advised to return to emergency room if he develops neurologic symptoms. SHARIFA KIRK MD Apr 24, 2017 22:33
== END 2017-04-24 22:32 | disposition home or self-care (01) ==
LOC: ER 20:26
DX: Z00.00 Encounter for general adult medical examination without abnormal findings (principal); F95.2 Tourette's disorder; F20.9 Schizophrenia, unspecified; E11.9 Type 2 diabetes mellitus without complications; J45.909 Unspecified asthma, uncomplicated; Z91.012 Allergy to eggs; Z91.013 Allergy to seafood
CPT/HCPCS: 99284

== ENCOUNTER 2017-04-26 19:35 | Emergency (ER) | payer MEDICARE ==
[~2017-04-26] VITALS: Ht 167.6 cm; Wt 79.4 kg
[2017-04-26 19:55] VITALS: BP 109/69
--- NOTE | 2017-04-26 20:03 | ED.ADGEN ---
Past History Past Medical History: Asthma, Diabetes, Schizophrenia Past Surgical History: Other Alcohol Use: None Drug Use: None Adult General HPI HPI Patient is a 41-year-old man, history of type 2 diabetes mellitus, asthma, schizophrenia, who presents to the emergency department stating that he is hearing voices. Patient is well-known to emergency department staff from previous visits. At this time patient is calm and cooperative, answering questions appropriately, in no 4. He states that he is hearing "the same voices always", he denies any suicidal or homicidal ideations, states that the voices are not telling him to hurt anyone or to hurt himself, states that they' re "just there". He denies any other complaints, is asking for "a lunch box and a bag of chips". Patient is homeless, and states that currently he is "not staying anywhere". He states that he does not want any medication for the voices. Review of Systems Review of Systems Constitutional: Denies fever or chills [] Eyes: Denies change in visual acuity, redness, or eye pain [] HENT: Denies nasal congestion or sore throat [] Respiratory: Denies cough or shortness of breath [] Cardiovascular: No additional information not addressed in HPI [] GI: Denies abdominal pain, nausea, vomiting, bloody stools or diarrhea [] : Denies dysuria or hematuria [] Musculoskeletal: Denies back pain or joint pain [] Integument: Denies rash or skin lesions [] Neurologic: Denies headache, focal weakness or sensory changes [] Endocrine: Denies polyuria or polydipsia [] Psychiatric: Auditory hallucinations Allergies Allergies Allergies Coded Allergies Type Severity Reaction Last Updated Verified egg Allergy Intermediate 04/14/17 Yes shellfish derived Allergy Intermediate 04/14/17 Yes Physical Exam Physical Exam Constitutional: Well developed, well nourished, no acute distress, non-toxic appearance. [] HENT: Normocephalic, atraumatic, bilateral external ears normal, oropharynx moist, no oral exudates, nose normal. [] Eyes: PERRLA, EOMI, conjunctiva normal, no discharge. [] Neck: Normal range of motion, no tenderness, supple, no stridor. [] Cardiovascular:Heart rate regular rhythm, no murmur, S1, S2, no rubs or gallops. [] Lungs & Thorax: Bilateral breath sounds clear to auscultation, no wheezing, rhonchi, rales. No chest wall crepitus or tenderness. [] Abdomen: Bowel sounds normal, soft, no tenderness, no masses, no rebound, rigidity, no guarding, no pulsatile masses. [] Skin: Warm, dry, no erythema, no rash. [] Back: No tenderness, no CVA tenderness. [] Extremities: No tenderness, no cyanosis, no clubbing, ROM intact, no edema. [] Neurologic: Alert and oriented X 3, normal motor function, normal sensory function, no focal deficits noted. [] Psychologic: Affect normal, judgement normal, mood normal. [] Current Patient Data Vital Signs Vital Signs Date Time Temp Pulse Resp B/P (MAP) Pulse Ox O2 Delivery O2 Flow Rate FiO2 04/26/17 19:55 97.7 69 20 97 Room Air EKG EKG Not indicated. [] Radiology/Procedures Radiology/Procedures Not indicated. [] Course & Med Decision Making Course & Med Decision Making Pertinent Labs and Imaging studies reviewed. (See chart for details) Patient is calm and cooperative, answering questions appropriately, appropriately dressed. He is denying any visual hallucinations, any suicidal or homicidal ideation, states that the voices "are the same ones that are always there, just saying the same things", states they are not encouraging him to harm anyone else or to harm himself or to engage in any dangerous behaviors. He declines, the voices are saying exactly. He states that he has had poor interactions with his family, but that he does not want to discuss this. He denies any new triggers or concerns. He is requesting a lunch box. He states he does not want any medication or additional assessment for the voices that he is hearing. He did declines any assistance with obtaining a place to stay. Patient received a meal box in the emergency department, discharged with instructions to follow-up with the guidance Center for additional evaluation, and return to the ED if any concerning symptoms develop. Patient voiced understanding and agreement, discharged in stable condition with plan as above. Final Impression Final Impression [] Problems: Dragon Disclaimer Dragon Disclaimer This electronic medical record was generated, in whole or in part, using a voice recognition dictation system. Departure: Impression: Primary Impression: Hallucination Disposition: 01 HOME, SELF-CARE Condition: STABLE BERHANE SALCEDO DO Apr 26, 2017 20:03
== END 2017-04-26 20:27 | disposition home or self-care (01) ==
LOC: ER 19:35
DX: R44.0 Auditory hallucinations (principal); E11.9 Type 2 diabetes mellitus without complications; F20.9 Schizophrenia, unspecified; J45.909 Unspecified asthma, uncomplicated; Z59.0 Homelessness; Z91.012 Allergy to eggs; Z91.013 Allergy to seafood
CPT/HCPCS: 99284

== ENCOUNTER 2017-05-09 19:48 | Emergency (ER) | payer MEDICARE ==
[~2017-05-09] VITALS: Ht 167.6 cm; Wt 79.4 kg
[2017-05-09 20:09] VITALS: BP 168/85
[2017-05-09] MEDS ORDERED: OLAN2.5T3 PO (20:27)
--- NOTE | 2017-05-09 20:27 | PHYS DOC ---
Past History Past Medical History: Asthma, Diabetes, Schizophrenia Past Surgical History: Other Alcohol Use: None Drug Use: None Adult General Chief Complaint Chief Complaint: HALLUCINATIONS AUDIBLE/VISUAL HPI HPI Patient is a 41 year old male who presents with complaint of hearing voices. The patient is well-known to this emergency department and has had multiple visits in the past. Patient has documented history of schizophrenia and homelessness. The patient has been prescribed Zyprexa in the past to help with symptoms. The patient states that he has been out of his medication and did not take his dose today. The patient states that the voices are not commanding him to hurt anyone or hurt himself. Patient has no suicidal or homicidal ideation at this time. The patient on my evaluation denies any complaints including chest pain, abdominal pain, back pain, fever, or any other symptoms. The patient has not eaten today. Review of Systems Review of Systems Constitutional: Denies fever or chills [] Eyes: Denies change in visual acuity, redness, or eye pain [] HENT: Denies nasal congestion or sore throat [] Respiratory: Denies cough or shortness of breath [] Cardiovascular: Denies chest pain or edema[] GI: Denies abdominal pain, nausea, vomiting, bloody stools or diarrhea [] : Denies dysuria or hematuria [] Musculoskeletal: Denies back pain or joint pain [] Integument: Denies rash or skin lesions [] Neurologic: Denies headache, focal weakness or sensory changes Psychiatric: Auditory hallucinations, denies suicidal or homicidal ideation[] Allergies Allergies Allergies Coded Allergies Type Severity Reaction Last Updated Verified egg Allergy Intermediate 04/14/17 Yes shellfish derived Allergy Intermediate 04/14/17 Yes Physical Exam Physical Exam Constitutional: Well developed, well nourished, afebrile, disheveled appearance , no acute distress. [] HENT: Normocephalic, atraumatic, bilateral external ears normal, oropharynx moist, no oral exudates, nose normal. [] Eyes: PERRLA, EOMI, conjunctiva normal, no discharge. [] Neck: Normal range of motion, no tenderness, supple, no stridor. [] Cardiovascular:Heart rate regular rhythm, no murmur [] Lungs & Thorax: Bilateral breath sounds clear to auscultation [] Abdomen: Bowel sounds normal, soft, no tenderness, no masses, no pulsatile masses. [] Skin: Warm, dry, no erythema, no rash. [] Back: No tenderness, no CVA tenderness. [] Extremities: No tenderness, no cyanosis, no clubbing, ROM intact, no edema. [] Neurologic: Alert and oriented X 3, normal motor function, normal sensory function, no focal deficits noted. [] Psychologic: Mildly pressured speech, affect flat, mood normal. [] Current Patient Data Vital Signs Vital Signs Date Time Temp Pulse Resp B/P (MAP) Pulse Ox O2 Delivery O2 Flow Rate FiO2 05/09/17 20:09 97.9 77 20 97 Room Air EKG EKG Not performed[] Radiology/Procedures Radiology/Procedures Not performed[] Course & Med Decision Making Course & Med Decision Making Pertinent Labs and Imaging studies reviewed. (See chart for details) Patient was given a meal tray in the emergency department and given a single dose of Zyprexa. The patient is tolerating oral intake without difficulty, vital signs are stable, and patient has no other complaints. The patient was given a prescription for Zyprexa to continue on low-dose therapy and urged to follow-up at the [facility] tomorrow evaluation and treatment. Advised return to the emergency department for any worsening symptoms. Patient voiced understanding and in agreement with treatment plan. Dragon Disclaimer Dragon Disclaimer This chart was dictated in whole or in part using Voice Recognition software in a busy, high-work load, and often noisy Emergency Department environment. It may contain unintended and wholly unrecognized errors or omissions. Departure Departure: Impression: Primary Impression: Auditory hallucinations Disposition: 01 HOME, SELF-CARE Condition: IMPROVED Referrals: PCPSTEVE (PCP) Patient Instructions: Hallucinations and Delusions Additional Instructions: Follow-up at [facility] for further evaluation and treatment. Be sure to take your Zyprexa medication as prescribed. Return to the emergency department for any worsening symptoms. Scripts Olanzapine (ZYPREXA) 2.5 Mg Tablet 1 TAB PO QHS, #30 TAB 0 Refills Prov: EMERY GANDHI MD 05/09/17 EMERY GANDHI MD May 09, 2017 20:27
[2017-05-09] MEDS ORDERED: OLANZapine 2.5 MG TABLET PO ONE (20:30)
== END 2017-05-09 20:33 | disposition home or self-care (01) ==
LOC: ER 19:48
DX: R44.0 Auditory hallucinations (principal); F20.9 Schizophrenia, unspecified; J45.909 Unspecified asthma, uncomplicated; E11.9 Type 2 diabetes mellitus without complications; Z59.0 Homelessness; Z91.012 Allergy to eggs; Z91.013 Allergy to seafood
CPT/HCPCS: 99284

== ENCOUNTER 2017-05-14 23:08 | Emergency (ER) | payer MEDICARE ==
[~2017-05-14] VITALS: Ht 167.6 cm; Wt 79.4 kg
--- NOTE | 2017-05-14 23:20 | ED.ADGEN ---
Past History Past Medical History: Asthma, Diabetes, Schizophrenia, Other Past Surgical History: Other Alcohol Use: None Drug Use: None Adult General Chief Complaint Chief Complaint " The voices are really talking to me tonight... One is in Latin.. I don't understand Latin.. the voices are me... I need to get back on my Zyprexa and Depakote. .. tonight.. I just want pills and my prescription until I can see the counselor..." HPI HPI Patient is a 41 year old male schizophrenic who presents with above hx and complaints. Patient states he has multiple voices telling him to do things. Patient advised voices are not telling her to himself or anyone else. The voices are so loud he cannot get to sleep tonight. Voices told him lady at the bar was looking at him and sending thoughts to him. Patient does have some awareness that he had some hallucinations. Pt. states he is not going to act upon the voices instructions. Pt. follows at counseling center. Pt. has no other complaints. Request renewal of Zyprexa, and Depakote. Review of Systems Review of Systems Constitutional: Denies fever or chills [] Eyes: Denies change in visual acuity, redness, or eye pain [] HENT: Denies nasal congestion or sore throat [] Respiratory: Denies cough or shortness of breath [] Cardiovascular: No additional information not addressed in HPI [] GI: Denies abdominal pain, nausea, vomiting, bloody stools or diarrhea [] : Denies dysuria or hematuria [] Musculoskeletal: Denies back pain or joint pain [] Integument: Denies rash or skin lesions [] Neurologic: Denies headache, focal weakness or sensory changes [] Endocrine: Denies polyuria or polydipsia [] Family History Family History Noncontributory Current Medications Current Medications Current Medications Medications (Trade) Dose Ordered Sig/Rosey Start Time Stop Time Status Last Admin Dose Admin Benztropine Mesylate (Cogentin) 1 mg 1X ONCE 05/15/17 00:00 05/15/17 00:01 DC Divalproex Sodium (Depakote) 500 mg 1X ONCE 05/14/17 23:45 05/14/17 23:50 DC 05/14/17 23:45 500 MG Olanzapine (ZyPREXA) 5 mg 1X ONCE 05/14/17 23:45 05/14/17 23:50 DC 05/14/17 23:45 5 MG See nursing for home meds Allergies Allergies Allergies Coded Allergies Type Severity Reaction Last Updated Verified egg Allergy Intermediate 04/14/17 Yes shellfish derived Allergy Intermediate 04/14/17 Yes Physical Exam Physical Exam Constitutional: Well developed, well nourished, no acute distress, non-toxic appearance. [] HENT: Normocephalic, atraumatic, bilateral external ears normal, oropharynx moist, no oral exudates, nose normal. [] Eyes: PERRLA, EOMI, conjunctiva normal, no discharge. [] Neck: Normal range of motion, no tenderness, supple, no stridor. [] Cardiovascular:Heart rate regular rhythm, no murmur [] Lungs & Thorax: Bilateral breath sounds are equal at apexes on auscultation [] Abdomen: Bowel sounds normal, soft, no tenderness, no masses, no pulsatile masses. [] Skin: Warm, dry, no erythema, no rash. [] Back: No tenderness, no CVA tenderness. [] Extremities: No tenderness, no cyanosis, no clubbing, ROM intact, no edema. [] Neurologic: Alert and oriented X 3, normal motor function, normal sensory function, no focal deficits noted. [] Psychologic: Affect anxious, judgement appears to have some insight he is having hallucinations, mood depressed but agitated. Patient states he is having hallucinations of voices but not going to act upon their instructions. Patient states he is not suicidal or homicidal. Pt. states the voices are not telling him to hurt anyone Current Patient Data Vital Signs Vital Signs Date Time Temp Pulse Resp B/P (MAP) Pulse Ox O2 Delivery O2 Flow Rate FiO2 05/14/17 23:22 97.9 89 16 98 Room Air EKG EKG [] Radiology/Procedures Radiology/Procedures [] Course & Med Decision Making Course & Med Decision Making Pertinent Labs and Imaging studies reviewed. (See chart for details). Patient follow-up counseling Center. Patient take his Zyprexa and Depakote as instructed. Return if any concerns. [] Final Impression Final Impression 1. Schizophrenia 2. Exacerbation of hallucinations Problems: Dragon Disclaimer Dragon Disclaimer This electronic medical record was generated, in whole or in part, using a voice recognition dictation system. EFFIE COPELAND MD May 14, 2017 23:20
[2017-05-14 23:22] VITALS: BP 138/85
[2017-05-14] MEDS ORDERED: DIVALPROEX SODIUM 125 MG TABLET.DR. PO ONE (23:45)
[2017-05-14] MEDS ORDERED: OLANZapine 2.5 MG TABLET PO ONE (23:45)
[2017-05-14] MEDS ORDERED: OLAN5TAB3 PO (23:52)
[2017-05-14] MEDS ORDERED: DIVA250T PO (23:52)
[2017-05-15] MEDS ORDERED: BENZTROPINE MESYLATE 1 MG TABLET PO ONE
[2017-05-15] MEDS ORDERED: DIVA500T2 PO (01:03)
[2017-05-15] MEDS ORDERED: OLAN5TAB3 PO (01:03)
== END 2017-05-15 01:33 | disposition home or self-care (01) ==
LOC: ER 23:08
DX: R44.0 Auditory hallucinations (principal); F20.9 Schizophrenia, unspecified; E11.9 Type 2 diabetes mellitus without complications; J45.909 Unspecified asthma, uncomplicated; Z91.012 Allergy to eggs; Z91.013 Allergy to seafood
CPT/HCPCS: 99283; 99284

== ENCOUNTER 2017-05-15 22:10 | Emergency (ER) | payer MEDICARE ==
[~2017-05-15 22:10] MED LIST changes: +DIVA250T PO; +DIVA500T2 PO; +OLAN5TAB3 PO
[2017-05-15 22:15] VITALS: BP 124/77
--- NOTE | 2017-05-15 22:20 | ED.ADGEN ---
Past History Past Medical History: Asthma, Diabetes, Schizophrenia, Other Past Surgical History: Other Alcohol Use: None Drug Use: None Adult General Chief Complaint Chief Complaint ".. The voices are still really talking to me bad... that one keeps talking to me in latin..".. " I feel guilty sometimes... but if guilty you have to serve the time....I just that head is full..thoughts are too fast..." " the voices will not let me sleep..." HPI HPI Patient is a 41 year old male who presents with above hx and complaints of still hearing voices. . Patient states the voices are not telling him to do anything bad patient denies suicidal ideation, homicidal ideation, or im pulse to hurt anyone.. Patient has known schizophrenic who is to follow at the counseling center in [place]. Patient has not filled his prescription for Depakote or Zyprexa. Patient refuses IM injection injections of Zyprexa states it makes him too slow and tired. Patient states he only takes pills unless he is really"bad". Patient states he will only takes 2 pills at any given time. Patient denies any drug use. Pt. denies any trauma or ill contacts. Patient primary hallucination is voices, patient does report some paranoid delusions that people are out to get him and are watching him. Encouraged patient to fill his prescription and follow-up with counseling center. Pt currently refuses any labs. Review of Systems Review of Systems Constitutional: Denies fever or chills [] Eyes: Denies change in visual acuity, redness, or eye pain [] HENT: Denies nasal congestion or sore throat [] Respiratory: Denies cough or shortness of breath [] Cardiovascular: No additional information not addressed in HPI [] GI: Denies abdominal pain, nausea, vomiting, bloody stools or diarrhea [] : Denies dysuria or hematuria [] Musculoskeletal: Denies back pain or joint pain [] Integument: Denies rash or skin lesions [] Neurologic: Denies headache, focal weakness or sensory changes [] Endocrine: Denies polyuria or polydipsia [] Family History Family History Refused by patient Current Medications Current Medications Current Medications Medications (Trade) Dose Ordered Sig/Rosey Start Time Stop Time Status Last Admin Dose Admin Benztropine Mesylate (Cogentin) 1 mg 1X ONCE 05/15/17 22:45 05/15/17 22:46 DC 05/15/17 22:37 1 MG Divalproex Sodium (Depakote Er) 500 mg 1X ONCE 05/15/17 22:45 05/15/17 22:46 DC Olanzapine (ZyPREXA IM) 10 mg 1X ONCE 05/15/17 22:30 05/15/17 22:31 DC Olanzapine (ZyPREXA) 7.5 mg 1X ONCE 05/15/17 22:30 05/15/17 22:31 DC 05/15/17 22:30 5 MG See nursing for home meds Allergies Allergies Allergies Coded Allergies Type Severity Reaction Last Updated Verified egg Allergy Intermediate 04/14/17 Yes shellfish derived Allergy Intermediate 04/14/17 Yes Physical Exam Physical Exam Constitutional: Well developed, well nourished, no acute emotional distress, non -toxic appearance. [] HENT: Normocephalic, atraumatic, bilateral external ears normal, oropharynx moist, no oral exudates, nose normal. [] Eyes: PERRLA, EOMI, conjunctiva normal, no discharge. [] Neck: Normal range of motion, no tenderness, supple, no stridor. [] Cardiovascular:Heart rate regular rhythm, no murmur [] Lungs & Thorax: Bilateral breath sounds clear to auscultation [] Abdomen: Bowel sounds normal, soft, no tenderness, no masses, no pulsatile masses. [] Skin: Warm, dry, no erythema, no rash. [] Back: No tenderness, no CVA tenderness. [] Extremities: No tenderness, no cyanosis, no clubbing, ROM intact, no edema. [] Neurologic: Alert and oriented X 3, normal motor function, normal sensory function, no focal deficits noted. [] Psychologic: Affect anxious, judgement undetermined, mood depressed, complaints of hallucinations. Current Patient Data Vital Signs Vital Signs Date Time Temp Pulse Resp B/P (MAP) Pulse Ox O2 Delivery O2 Flow Rate FiO2 05/15/17 22:15 97.9 88 18 97 EKG EKG [] Radiology/Procedures Radiology/Procedures [] Course & Med Decision Making Course & Med Decision Making Pertinent Labs and Imaging studies reviewed. (See chart for details). Begged patient to keep follow-up at counseling center and fill his prescription. [] Final Impression Final Impression 1. Schizophrenia 2. Hallucination[] 3. History of noncompliance Problems: Dragon Disclaimer Dragon Disclaimer This electronic medical record was generated, in whole or in part, using a voice recognition dictation system. EFFIE COPELAND MD May 15, 2017 22:20
[2017-05-15] MEDS ORDERED: OLANZapine IM 10 MG VIAL. IM ONE (22:30)
[2017-05-15] MEDS ORDERED: OLANZapine 2.5 MG TABLET PO ONE (22:30)
[2017-05-15] MEDS ORDERED: BENZTROPINE MESYLATE 1 MG TABLET PO ONE (22:45)
[2017-05-15] MEDS ORDERED: DIVALPROEX ER 500 MG TAB.ER.24H PO ONE (22:45)
== END 2017-05-15 22:55 | disposition home or self-care (01) ==
LOC: ER 22:10
DX: F20.9 Schizophrenia, unspecified (principal); J45.909 Unspecified asthma, uncomplicated; E11.9 Type 2 diabetes mellitus without complications; Z91.14 Patient's other noncompliance with medication regimen; Z91.012 Allergy to eggs; Z91.013 Allergy to seafood
CPT/HCPCS: 99284

== ENCOUNTER 2017-05-17 00:15 | Emergency (ER) | payer MEDICARE ==
[~2017-05-17] VITALS: Ht 167.6 cm; Wt 79.4 kg
--- NOTE | 2017-05-17 00:23 | ED.ADGEN ---
Past History Past Medical History: Asthma, Diabetes, Schizophrenia, Other Past Surgical History: Other Alcohol Use: None Drug Use: None Adult General Chief Complaint Chief Complaint " I still hearing voices..".." They are not as bad as last night.. but they are still driving me crazy...That one keeps talking to me in latin.. and it knows I don't under stand what it is saying..." HPI HPI Patient is a 41 year old male who presents with above hx and complaints. Pt. has not filled Rx. from the other night. Pt. did not keep follow up at Counseling Center. Pt. denies any suicidal, homicidal or impulses to hurt anyone. Patient states the voices are not telling him to kill himself or hurt anyone. Patient denies any drug use. Patient denies any travel. Patient denies any trauma. Patient requesting Zyprexa and Depakote. Patient refuses draw for labs. Patient refuses IM of Zyprexa. Patient promises he'll follow up Friday at the counseling center. Review of Systems Review of Systems Constitutional: Denies fever or chills [] Eyes: Denies change in visual acuity, redness, or eye pain [] HENT: Denies nasal congestion or sore throat [] Respiratory: Denies cough or shortness of breath [] Cardiovascular: No additional information not addressed in HPI [] GI: Denies abdominal pain, nausea, vomiting, bloody stools or diarrhea [] : Denies dysuria or hematuria [] Musculoskeletal: Denies back pain or joint pain [] Integument: Denies rash or skin lesions [] Neurologic: Denies headache, focal weakness or sensory changes []complaints of hallucinations Endocrine: Denies polyuria or polydipsia [] Family History Family History Noncontributory Current Medications Current Medications Current Medications Medications (Trade) Dose Ordered Sig/Rosey Start Time Stop Time Status Last Admin Dose Admin Benztropine Mesylate (Cogentin) 1 mg STK-MED ONCE 05/17/17 00:54 05/17/17 00:55 DC Divalproex Sodium (Depakote) 250 mg STK-MED ONCE 05/17/17 00:50 05/17/17 00:51 DC Olanzapine (ZyPREXA ZYDIS) 10 mg 1X ONCE 05/17/17 01:00 05/17/17 01:01 DC Allergies Allergies Allergies Coded Allergies Type Severity Reaction Last Updated Verified egg Allergy Intermediate 04/14/17 Yes shellfish derived Allergy Intermediate 04/14/17 Yes Physical Exam Physical Exam Constitutional: Well developed, well nourished, moderately acute emotional distress, non-toxic appearance. [] HENT: Normocephalic, atraumatic, bilateral external ears normal, oropharynx moist, no oral exudates, nose normal. [] Eyes: PERRLA, EOMI, conjunctiva normal, no discharge. [] Neck: Normal range of motion, no tenderness, supple, no stridor. [] Cardiovascular:Heart rate regular rhythm, no murmur [] Lungs & Thorax: Bilateral breath sounds equal at apexes auscultation [] Abdomen: Bowel sounds normal, soft, no tenderness, no masses, no pulsatile masses. [] Skin: Warm, dry, no erythema, no rash. [] Back: No tenderness, no CVA tenderness. [] Extremities: No tenderness, no cyanosis, no clubbing, ROM intact, no edema. [] Neurologic: Alert and oriented X 3, normal motor function, normal sensory function, no focal deficits noted. [] Psychologic: Affect anxious, complaints of hallucinations, mood normal. [] Current Patient Data Vital Signs Vital Signs Date Time Temp Pulse Resp B/P (MAP) Pulse Ox O2 Delivery O2 Flow Rate FiO2 05/17/17 00:37 98.0 65 20 98 Room Air EKG EKG [] Radiology/Procedures Radiology/Procedures [] Course & Med Decision Making Course & Med Decision Making Pertinent Labs and Imaging studies reviewed. (See chart for details) Patient strongly encourage to keep follow-up at the counseling Center. Patient encouraged to fill his meds. [] Final Impression Final Impression 1. History of schizophrenia 2. Hallucinations Problems: Dragon Disclaimer Dragon Disclaimer This electronic medical record was generated, in whole or in part, using a voice recognition dictation system. EFFIE COPELAND MD May 17, 2017 00:23
[2017-05-17 00:37] VITALS: BP 118/87
[2017-05-17] MEDS ORDERED: DIVALPROEX SODIUM 250 MG TABLET.DR. PO ONE (00:50)
[2017-05-17] MEDS ORDERED: BENZTROPINE MESYLATE 1 MG TABLET ONE (00:54)
[2017-05-17] MEDS ORDERED: BENZTROPINE MESYLATE 1 MG TABLET PO ONE (01:00)
[2017-05-17] MEDS ORDERED: DIVALPROEX SODIUM 125 MG TABLET.DR. PO ONE (01:00)
== END 2017-05-17 01:13 | disposition home or self-care (01) ==
LOC: ER 00:15
DX: R44.0 Auditory hallucinations (principal); F20.9 Schizophrenia, unspecified; E11.9 Type 2 diabetes mellitus without complications; J45.909 Unspecified asthma, uncomplicated; Z91.012 Allergy to eggs; Z91.013 Allergy to seafood
CPT/HCPCS: 99284

== ENCOUNTER 2017-05-18 01:38 | Emergency (ER) | payer MEDICARE ==
[~2017-05-18] VITALS: Ht 167.6 cm; Wt 80.7 kg
[2017-05-18 01:38] VITALS: BP 105/65
[~2017-05-18 01:38] MED LIST changes: +OLANZapine ZYDIS 15 MG TAB.RAPDIS ONE
--- NOTE | 2017-05-18 01:42 | ED.ADGEN ---
Past History Past Medical History: Asthma, Diabetes, Schizophrenia, Other Past Surgical History: Other Alcohol Use: None Drug Use: None Adult General Chief Complaint Chief Complaint " I am better.. but voices still there.. " HPI HPI Patient is a 41 year old male who presents with above complaints. Hearing voices. Pt. know to ED for his schizophrenia and delusions. Pt. has frequent ED lately because of exacerbation of his hallucination and hearing voices. Pt. denies suicidal or homicidal ideation. Patient states the voices are not telling him to hurt anybody. Pt. complaints of insomnia. Pt. encouraged to keep followup at counseling center. Pt. to refill his prescriptions. Patient still refuses depo Zyprexa . Pt. still refuses lab draws. Review of Systems Review of Systems Constitutional: Denies fever or chills [] Eyes: Denies change in visual acuity, redness, or eye pain [] HENT: Denies nasal congestion or sore throat [] Respiratory: Denies cough or shortness of breath [] Cardiovascular: No additional information not addressed in HPI [] GI: Denies abdominal pain, nausea, vomiting, bloody stools or diarrhea [] : Denies dysuria or hematuria [] Musculoskeletal: Denies back pain or joint pain [] Integument: Denies rash or skin lesions [] Neurologic: Denies headache, focal weakness or sensory changes [] Endocrine: Denies polyuria or polydipsia [] Family History Family History None currently available Current Medications Current Medications Current Medications Medications (Trade) Dose Ordered Sig/Rosey Start Time Stop Time Status Last Admin Dose Admin Benztropine Mesylate (Cogentin) 1 mg 1X ONCE 05/18/17 02:00 05/18/17 02:01 DC Divalproex Sodium (Depakote Er) 750 mg ONCE ONCE 05/18/17 02:00 05/18/17 02:01 DC Olanzapine (ZyPREXA ZYDIS) 15 mg STK-MED ONCE 05/18/17 00:04 05/18/17 02:05 DC Allergies Allergies Allergies Coded Allergies Type Severity Reaction Last Updated Verified egg Allergy Intermediate 04/14/17 Yes shellfish derived Allergy Intermediate 04/14/17 Yes Physical Exam Physical Exam Constitutional: Well developed, well nourished, no acute distress, non-toxic appearance. [] HENT: Normocephalic, atraumatic, bilateral external ears normal, oropharynx moist, no oral exudates, nose normal. [] Eyes: PERRLA, EOMI, conjunctiva normal, no discharge. [] Neck: Normal range of motion, no tenderness, supple, no stridor. [] Cardiovascular:Heart rate regular rhythm, no murmur [] Lungs & Thorax: Bilateral breath sounds clear to auscultation [] Abdomen: Bowel sounds normal, soft, no tenderness, no masses, no pulsatile masses. [] Skin: Warm, dry, no erythema, no rash. [] Back: No tenderness, no CVA tenderness. [] Extremities: No tenderness, no cyanosis, no clubbing, ROM intact, no edema. [] Neurologic: Alert and oriented X 3, normal motor function, normal sensory function, no focal deficits noted. [] Psychologic: Affect anxious,, mood normal. []Complaints of hallucinations and hearing voices EKG EKG [] Radiology/Procedures Radiology/Procedures [] Course & Med Decision Making Course & Med Decision Making Pertinent Labs and Imaging studies reviewed. (See chart for details) Patient encouraged to keep his appointment Friday with the counseling Center. Patient encouraged take meds as directed. [] Final Impression Final Impression 1. Schizophrenia[] 2. Hallucinations-hearing voices 3. Noncompliance Problems: Dragon Disclaimer Dragon Disclaimer This electronic medical record was generated, in whole or in part, using a voice recognition dictation system. EFFIE COPELAND MD May 18, 2017 01:42
[2017-05-18] MEDS ORDERED: OLANZapine ZYDIS 15 MG TAB.RAPDIS PO ONE (01:45)
[2017-05-18] MEDS ORDERED: DIVALPROEX ER 500 MG TAB.ER.24H PO ONE (02:00)
[2017-05-18] MEDS ORDERED: BENZTROPINE MESYLATE 1 MG TABLET PO ONE (02:00)
== END 2017-05-18 02:15 | disposition home or self-care (01) ==
LOC: ER 01:38
DX: F20.9 Schizophrenia, unspecified (principal); E11.9 Type 2 diabetes mellitus without complications; J45.909 Unspecified asthma, uncomplicated; Z91.19 Patient's noncompliance with other medical treatment and regimen; Z91.012 Allergy to eggs; Z91.013 Allergy to seafood
CPT/HCPCS: 99284

== ENCOUNTER 2017-05-18 16:20 | Emergency (ER) | payer MEDICARE ==
[~2017-05-18] VITALS: Ht 167.6 cm; Wt 80.7 kg
[2017-05-18 16:20] VITALS: BP 128/73
[~2017-05-18 16:20] MED LIST changes: -OLANZapine ZYDIS 15 MG TAB.RAPDIS ONE
--- NOTE | 2017-05-18 18:00 | ED.ADGEN ---
Past History Past Medical History: No Pertinent History Past Surgical History: Other Alcohol Use: None Drug Use: None Adult General HPI HPI Patient is a 41-year-old man, with history of schizophrenia, who presents to the emergency department with a complaint of auditory hallucinations. Patient states that he is hearing "an old lady who is saying "help me!", and other voices telling me to help her". Patient denies any suicidal or homicidal ideation, is oriented 3, and appropriate in his responses, although he is responding to internal stimuli at times. Patient was seen in the emergency department yesterday for the same complaint, that time he was given a prescription for Zyprexa, and instructed to follow-up with a guidance center. Patient has not done so at this time, he is denying any other complaints. Review of Systems Review of Systems Constitutional: Denies fever or chills [] Eyes: Denies change in visual acuity, redness, or eye pain [] HENT: Denies nasal congestion or sore throat [] Respiratory: Denies cough or shortness of breath [] Cardiovascular: No additional information not addressed in HPI [] GI: Denies abdominal pain, nausea, vomiting, bloody stools or diarrhea [] : Denies dysuria or hematuria [] Musculoskeletal: Denies back pain or joint pain [] Integument: Denies rash or skin lesions [] Neurologic: Denies headache, focal weakness or sensory changes [] Endocrine: Denies polyuria or polydipsia Psychiatric: Auditory hallucinations. [] Patient denies all complaints at this time. Allergies Allergies Allergies Coded Allergies Type Severity Reaction Last Updated Verified egg Allergy Intermediate 04/14/17 Yes shellfish derived Allergy Intermediate 04/14/17 Yes Physical Exam Physical Exam Constitutional: Well developed, well nourished, no acute distress, non-toxic appearance. [] HENT: Normocephalic, atraumatic, bilateral external ears normal, oropharynx moist, no oral exudates, nose normal. [] Eyes: PERRLA, EOMI, conjunctiva normal, no discharge. [] Neck: Normal range of motion, no tenderness, supple, no stridor. [] Cardiovascular:Heart rate regular rhythm, no murmur, S1, S2, rubs or gallops. [] Lungs & Thorax: Bilateral breath sounds clear to auscultation, no wheezing, rhonchi, rales. No chest or crepitus or tenderness. [] Abdomen: Bowel sounds normal, soft, no tenderness, no masses, no pulsatile masses. [] Skin: Warm, dry, no erythema, no rash. [] Back: No tenderness, no CVA tenderness. [] Extremities: No tenderness, no cyanosis, no clubbing, ROM intact, no edema. [] Neurologic: Alert and oriented X 3, normal motor function, normal sensory function, no focal deficits noted. [] Psychologic: Patient with strange affect, although he is responding properly to questions, is also responding to internal stimuli at times, judgement normal, mood normal. [] Current Patient Data Vital Signs Vital Signs Date Time Temp Pulse Resp B/P (MAP) Pulse Ox O2 Delivery O2 Flow Rate FiO2 05/18/17 16:20 98.0 97 18 98 Room Air EKG EKG Not indicated.[] Radiology/Procedures Radiology/Procedures Not indicated.[] Course & Med Decision Making Course & Med Decision Making Pertinent Labs and Imaging studies reviewed. (See chart for details) Patient well-appearing, with vital signs within normal limits. Although he stated initially he wanted to be seen regarding his hallucinations, when I speak to the patient, he states that he wants to be seen at or the guidance center. As stated, he is responding appropriately to questions and is denying any suicidal or homicidal ideations, any ingestions, or any other complaints. Patient did decline Zyprexa or other interventions in the ED. He is requesting juice and crackers. Did discuss with the patient that we would be happy to assess him for any medical issues that he may have, but we would not be able to provide him with additional food or beverage at this time. Patient voices understanding, states that he will follow-up with the guidance center, and does not desire any additional evaluation at this time. Patient discharged in stable condition with plan to follow-up with the guidance Center, with prescription for Zyprexa as stated, to return to the ED for concerning symptoms, or inability to comply with stated plan. Final Impression Final Impression [] Problems: Dragon Disclaimer Dragon Disclaimer This electronic medical record was generated, in whole or in part, using a voice recognition dictation system. Departure: Impression: Primary Impression: Hallucination Disposition: 01 HOME, SELF-CARE Condition: STABLE BERHANE SALCEDO DO May 18, 2017 18:00
== END 2017-05-18 17:00 | disposition home or self-care (01) ==
LOC: ER 16:20
DX: R44.0 Auditory hallucinations (principal); F20.9 Schizophrenia, unspecified; Z91.012 Allergy to eggs; Z91.013 Allergy to seafood
CPT/HCPCS: 99284

== ENCOUNTER 2017-05-20 03:29 | Emergency (ER) | payer MEDICARE ==
[~2017-05-20] VITALS: Ht 167.6 cm; Wt 80.7 kg
[2017-05-20 03:40] VITALS: BP 115/77
--- NOTE | 2017-05-20 07:06 | ED.ADGEN ---
Past History Past Medical History: Anxiety, Depression, Schizophrenia Past Surgical History: Other Alcohol Use: None Drug Use: None Adult General Chief Complaint Chief Complaint Auditory hallucinations HPI HPI Patient is a 41-year-old male well-known to this emergency department presents with chronic hallucinations. No other symptoms or complaints. [] Review of Systems Review of Systems Review symptoms are otherwise negative Allergies Allergies Allergies Coded Allergies Type Severity Reaction Last Updated Verified egg Allergy Intermediate 04/14/17 Yes shellfish derived Allergy Intermediate 04/14/17 Yes Physical Exam Physical Exam Left prior to exam [] Current Patient Data Vital Signs Vital Signs Date Time Temp Pulse Resp B/P (MAP) Pulse Ox O2 Delivery O2 Flow Rate FiO2 05/20/17 03:40 98.1 68 20 97 Room Air EKG EKG [] Radiology/Procedures Radiology/Procedures [] Course & Med Decision Making Course & Med Decision Making Pertinent Labs and Imaging studies reviewed. (See chart for details) [] Final Impression Final Impression [1. chronic psychosis] Problems: Dragon Disclaimer Dragon Disclaimer This electronic medical record was generated, in whole or in part, using a voice recognition dictation system. DEVIKA MUÑIZ DO May 20, 2017 07:06
== END 2017-05-20 03:53 | disposition home or self-care (01) ==
LOC: ER 03:29
DX: F28 Other psychotic disorder not due to a substance or known physiological condition (principal); F20.9 Schizophrenia, unspecified; F32.9 Major depressive disorder, single episode, unspecified; F41.9 Anxiety disorder, unspecified; Z91.012 Allergy to eggs; Z91.013 Allergy to seafood
CPT/HCPCS: 99284

== ENCOUNTER 2017-05-22 05:36 | Emergency (ER) | payer MEDICARE ==
[~2017-05-22] VITALS: Ht 167.6 cm; Wt 80.7 kg
[2017-05-22 05:40] VITALS: BP 113/73
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
== END 2017-05-22 06:15 | disposition home or self-care (01) ==
LOC: ER 05:36
DX: Z13.89 Encounter for screening for other disorder (principal); F20.9 Schizophrenia, unspecified; F32.9 Major depressive disorder, single episode, unspecified; F43.10 Post-traumatic stress disorder, unspecified; F41.9 Anxiety disorder, unspecified; Z59.0 Homelessness; Z91.012 Allergy to eggs; Z91.013 Allergy to seafood
CPT/HCPCS: 99281; 99284

== ENCOUNTER 2017-05-23 20:18 | Emergency (ER) | payer MEDICARE ==
[~2017-05-23] VITALS: Ht 167.6 cm; Wt 80.7 kg
[2017-05-23 20:29] VITALS: BP 112/71
--- NOTE | 2017-05-23 20:51 | PHYS DOC ---
Past History Past Medical History: Anxiety, Depression, Schizophrenia Past Surgical History: Other Alcohol Use: None Drug Use: None Adult General Chief Complaint Chief Complaint: HALLUCINATIONS AUDIBLE/VISUAL HPI HPI Patient is a 41-year-old homeless male with psychiatric disorders including schizophrenia well-known to this facility requesting a check of his vital signs and a meal. Patient states that he continues to hear voices a currently are speaking to him in Latin. He denies thoughts to hurt himself or others and admits he is at his baseline mental status. He was concerned why he continues to have voices although he says he is not pale with medications. He wants to know if there is another facility that has the ability to take care of the voices in his head. Although he has been to the crisis Center he does not believe his voices are associate with his schizophrenia. He denies being a danger to others, denies any headache, change in symptoms, abdominal pain, chest pain or others complaints. Review of Systems Review of Systems Constitutional: Denies fever or chills [] Eyes: Denies change in visual acuity, redness, or eye pain [] HENT: Denies nasal congestion or sore throat [] Respiratory: Denies cough or shortness of breath [] Cardiovascular: No additional information not addressed in HPI [] GI: Denies abdominal pain, nausea, vomiting, bloody stools or diarrhea [] : Denies dysuria or hematuria [] Musculoskeletal: Denies back pain or joint pain [] Integument: Denies rash or skin lesions [] Neurologic: Denies headache, focal weakness or sensory changes [] Endocrine: Denies polyuria or polydipsia [] Psychiatric: Allergies Allergies Allergies Coded Allergies Type Severity Reaction Last Updated Verified egg Allergy Intermediate 04/14/17 Yes shellfish derived Allergy Intermediate 04/14/17 Yes Physical Exam Physical Exam Vital signs recorded on the chart they're recorded normal Constitutional: Well developed, well nourished, no acute distress, non-toxic appearance. [] HENT: Normocephalic, atraumatic, bilateral external ears normal, oropharynx moist, no oral exudates, nose normal. [] Eyes: PERRLA, EOMI, conjunctiva normal, no discharge. [] Cardiovascular:Heart rate regular rhythm, no murmur [] Lungs & Thorax: Bilateral breath sounds clear to auscultation [] Skin: Warm, dry, no erythema, no rash. [] [] Extremities: Normal gait, no external mascorro of IV drug use. Neurologic: Alert and oriented X 3, normal motor function, normal sensory function, no focal deficits noted. [] Psychologic: Patient has his normal affect normal mood although he says he can hear with just one point speaking Latin to him that is the reason for his concern. He is not having any change symptoms,[] Current Patient Data Vital Signs Vital Signs Date Time Temp Pulse Resp B/P (MAP) Pulse Ox O2 Delivery O2 Flow Rate FiO2 05/23/17 20:29 98.1 64 20 99 Room Air EKG EKG [] Radiology/Procedures Radiology/Procedures [] Course & Med Decision Making Course & Med Decision Making Pertinent Labs and Imaging studies reviewed. (See chart for details) patient is well-known to our facility returning for a request for referral to a psychiatrist or psychiatric facility like the crisis Center who could help him with his voice. He is also requesting a meal. He denies being a danger to himself or anybody else these are not command voices requiring him to hurt himself or anybody else. He has no other change in her complaints today. My differential for visual hallucinations includes but is not limited to retinal pathology, vision loss, migraine headache, seizure disorder, dementia, alcohol, alcohol withdrawal, medication withdrawal, narcolepsy, psychiatric illness, metabolic encephalopathy, hypothyroidism, renal failure, systemic infection, central nervous system ischemia, [] Dragon Disclaimer Dragon Disclaimer This chart was dictated in whole or in part using Voice Recognition software in a busy, high-work load, and often noisy Emergency Department environment. It may contain unintended and wholly unrecognized errors or omissions. Departure Departure: Impression: Primary Impression: Hallucination Disposition: HOME, SELF-CARE Condition: STABLE Referrals: PCP,NO (PCP) Patient Instructions: Hallucinations and Delusions Additional Instructions: My discharge plan Follow up: In addition patient is asked to followup with their primary doctor, within a week for followup examination and to address patient's ongoing medical conditions. Because patient does not have a regular medical doctor, a local physician Resource Sheet will be provided to establish care primary care. Patient is advised that in the Emergency Department primary complaints are addressed and only in light of known signs and symptoms. Patient should return immediately to the emergency department if new signs and symptoms develop or patient's condition worsens in any way. At time of discharge patient was in stable condition and had verbalized understanding of the discharge instructions. I have also provided the information for the local crisis Center to help you with your chronic schizophrenia. JUNIOR MORENO MD May 23, 2017 20:51
[2017-05-24] MEDS ORDERED: NAPR275T59 PO (05:22)
== END 2017-05-23 21:00 | disposition home or self-care (01) ==
LOC: ER 20:18
DX: R44.0 Auditory hallucinations (principal); F20.9 Schizophrenia, unspecified; F32.9 Major depressive disorder, single episode, unspecified; F41.9 Anxiety disorder, unspecified; Z59.0 Homelessness; Z91.012 Allergy to eggs; Z91.013 Allergy to seafood
CPT/HCPCS: 99284

== ENCOUNTER 2017-05-24 04:28 | Emergency (ER) | payer MEDICARE ==
[~2017-05-24] VITALS: Ht 167.6 cm; Wt 80.7 kg
[2017-05-24 04:28] VITALS: BP 114/74
[2017-05-24] MEDS ORDERED: NAPR275T59 PO (05:22)
--- NOTE | 2017-05-24 05:23 | PHYS DOC ---
Past History Past Medical History: Anxiety, Bipolar, Depression, Schizophrenia Past Surgical History: Other Alcohol Use: None Drug Use: None Adult General Chief Complaint Chief Complaint: RIB PAIN HPI HPI She is a pleasant 41-year-old male well-known to this facility with a history of PTSD, bipolar disorder and schizophrenia who presents with sudden onset of rib pain after a fall from standing. Patient was walking with his evening walking up a flight of steps when he lost his footing landing on his right lower ribs on the edge of the step. He denies any shortness of breath, at this time denies any abdominal pain, denies any loss of consciousness, neck pain or other symptoms. Patient wants to make sure that his ribs are not broken. He denies any prior injury to his wrist before, denies any shortness of breath, denies any fever, chills or other URI symptoms. Pain is mild at this time is asking for no medications. Review of Systems Review of Systems Constitutional: Denies fever or chills [] Eyes: Denies change in visual acuity, redness, or eye pain [] HENT: Denies nasal congestion or sore throat [] Respiratory: Denies cough or shortness of breath [] Cardiovascular: No additional information not addressed in HPI [] GI: Denies abdominal pain, nausea, vomiting, bloody stools or diarrhea [] : Denies dysuria or hematuria [] Musculoskeletal: Denies back pain or joint pain [] Integument: Denies rash or skin lesions [] Neurologic: Denies headache, focal weakness or sensory changes [] Endocrine: Denies polyuria or polydipsia [] Allergies Allergies Allergies Coded Allergies Type Severity Reaction Last Updated Verified egg Allergy Intermediate 04/14/17 Yes shellfish derived Allergy Intermediate 04/14/17 Yes Physical Exam Physical Exam Vital signs recorded on the chart within normal limits. Constitutional: Well developed, well nourished, no acute distress, non-toxic appearance. [] HENT: Normocephalic, atraumatic, bilateral external ears normal, oropharynx moist, no oral exudates, nose normal. [] Eyes: PERRLA, EOMI, conjunctiva normal, no discharge. [] Neck: Normal range of motion, no tenderness, supple, no stridor. [] Cardiovascular:Heart rate regular rhythm, no murmur [] Lungs & Thorax: Bilateral breath sounds clear to auscultation patient has slight tenderness to palpation over the mid axillary line over ribs 6 through 8 , there is no flail chest no obvious signs of crepitus, there are no bruising or ecchymoses. Abdomen: Bowel sounds normal, soft, no tenderness, no masses, no pulsatile masses. [] Skin: Warm, dry, no erythema, no rash. [] Back: No tenderness, no CVA tenderness. [] Extremities: No tenderness, Neurologic: Alert and oriented X 3, normal motor function, normal sensory function, no focal deficits noted. Patient specifically is not complaining of voices at this time.[] Psychologic: Affect normal, judgement normal, mood normal. [] Current Patient Data Vital Signs Vital Signs Date Time Temp Pulse Resp B/P (MAP) Pulse Ox O2 Delivery O2 Flow Rate FiO2 05/24/17 04:28 97.9 64 14 99 Room Air EKG EKG [] Radiology/Procedures Radiology/Procedures []4 view series of ribs completed in the emergency department timed 0 4:59 AM read by me demonstrate no acute fracture, no pneumothorax, no apparent pulmonary contusion, no subdiaphragmatic air no long bone fracture of the humerus on that side. Course & Med Decision Making Course & Med Decision Making Pertinent Labs and Imaging studies reviewed. (See chart for details) [] Dragon Disclaimer Dragon Disclaimer This chart was dictated in whole or in part using Voice Recognition software in a busy, high-work load, and often noisy Emergency Department environment. It may contain unintended and wholly unrecognized errors or omissions. Departure Departure: Impression: Primary Impression: Contusion of rib on right side Additional Impression: Fall from standing Disposition: 01 HOME, SELF-CARE Condition: IMPROVED Referrals: PCP,NO (PCP) Patient Instructions: Rib Contusion Additional Instructions: My discharge plan Follow up: In addition patient is asked to followup with their primary doctor, within a week for followup examination and to address patient's ongoing medical conditions. Because patient does not have a regular medical doctor, a local physician Resource Sheet will be provided to establish care primary care. Patient is advised that in the Emergency Department primary complaints are addressed and only in light of known signs and symptoms. Patient should return immediately to the emergency department if new signs and symptoms develop or patient's condition worsens in any way. At time of discharge patient was in stable condition and had verbalized understanding of the discharge instructions. Scripts Naproxen Sodium (NAPROXEN SODIUM) 275 Mg Tablet 275 MG PO BID for 7 Days, #14 TAB Prov: JUNIOR MORENO MD 05/24/17 Problem Qualifiers JUNIOR MORENO MD May 24, 2017 05:23
--- NOTE | 2017-05-24 08:06 | RAD ---
Right rib series and Chest radiograph 05/24/2017 6:53 AM Indication: Fall, right rib pain Comparison: Chest radiograph 04/13/2017 Technique: Frontal view of the chest and 3 dedicated views of the right ribs are provided. Findings: Cardiomediastinal silhouette is within normal limits. No pleural effusions, pulmonary vascular congestion or pneumothorax. The lungs are clear. Osseous structures are normal. No acutely displaced right-sided rib fracture. Impression: No acute cardiopulmonary process. No acutely displaced right-sided rib fracture.
== END 2017-05-24 05:28 | disposition home or self-care (01) ==
LOC: ER 04:37
DX: S20.211A Contusion of right front wall of thorax, initial encounter (principal); F20.9 Schizophrenia, unspecified; F31.9 Bipolar disorder, unspecified; F41.9 Anxiety disorder, unspecified; Z91.012 Allergy to eggs; Z91.013 Allergy to seafood; W17.89XA Other fall from one level to another, initial encounter; Y93.01 Activity, walking, marching and hiking; Y99.8 Other external cause status; Y92.520 Airport as the place of occurrence of the external cause
CPT/HCPCS: 71101; 99284

== ENCOUNTER 2017-05-24 17:56 | Inpatient (IN) | payer MEDICARE ==
[~2017-05-24] VITALS: Ht 168.9 cm; Wt 85.3 kg
[~2017-05-24 17:56] MED LIST changes: +NAPR275T59 PO
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
[2017-05-24 19:54] LABS: BARBITURATES NEG (NEG); BENZODIAZEPINES NEG (NEG); CANNABINOIDS NEG (NEG); COCAINE NEG (NEG); METHADONE NEG (NEG); OPIATES NEG (NEG); PHENCYCLIDINE NEG (NEG)
[2017-05-24 19:55] LABS: CLARITY,URINE CLEAR; COLOR,URINE YELLOW
[2017-05-24 19:56] LABS: BACTERIA,URINE 0 /HPF (0-FEW); BILIRUBIN,URINE NEG (NEG); GLUCOSE,URINE NEG (NEG); NITRITE,URINE NEG (NEG); RBC,URINE 0 /HPF (0-2); UROBILINOGEN,URINE 1 mg/dL (0.2 mg/dL); WBC,URINE 0 /HPF (0-4)
[2017-05-24 19:58] LABS: AMPHETAMINE/METHAMPHETAMINE NEG (NEG)
[2017-05-24 20:08] LABS: ALBUMIN 3.6 g/dL (3.4-5.0); CALCIUM 8.6 mg/dL (8.5-10.1); CREATININE 0.7 mg/dL (0.7-1.3); DIRECT BILIRUBIN 0.1 mg/dL (0.0-0.2); GFR 151.1; MAGNESIUM 1.8 mg/dL (1.8-2.4); TOTAL BILIRUBIN 0.3 mg/dL (0.2-1.0); TOTAL PROTEIN 7.8 g/dL (6.4-8.2)
[2017-05-24 20:09] LABS: SALIC 0.4 mg/dL (2.8-20.0)
[2017-05-24 20:14] LABS: BASO # 0.1 x10^3/uL (0.0-0.2); BASO % 1 % (0-3); EOS # 0.2 x10^3/uL (0.0-0.7); EOS % 5 % (0-3); HEMATOCRIT 40.1 % (39.0-53.0); HEMOGLOBIN 13.1 g/dL (13.0-17.5); LYMPH # 1.8 x10^3/uL (1.0-4.8); LYMPH % 36 % (24-48); MEAN CORPUSCULAR HEMOGLOBIN 25 pg (25-35); MEAN CORPUSCULAR HGB CONC 33 g/dL (31-37); MEAN CORPUSCULAR VOLUME 75 fL (79-100); MONO # 0.4 x10^3/uL (0.0-1.1); MONO % 8 % (0-9); NEUT # 2.4 x10^3uL (1.8-7.7); NEUT % 49 % (31-73); PLATELET COUNT 234 x10^3/uL (140-400); RED BLOOD COUNT 5.34 x10^6/uL (4.30-5.70); RED CELL DISTRIBUTION WIDTH 15.3 % (11.5-14.5); WHITE BLOOD COUNT 4.8 x10^3/uL (4.0-11.0)
[2017-05-24 20:22] LABS: ACETAMIN < 2 mcg/mL (10-30)
[2017-05-24 20:24] LABS: ETHANOL < 10 mg/dL (0-10)
[2017-05-24] MEDS: ZIPRASIDONE 40 MG CAPSULE. PO SCH (21:00)
[2017-05-25 10:38] VITALS: BP 120/73
[2017-05-25 10:55] VITALS: BP 120/73
[2017-05-25] MEDS: ZIPRASIDONE 40 MG CAPSULE. PO SCH ×2 (14:42→20:00)
[2017-05-25 15:09] VITALS: BP 108/69
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
--- NOTE | 2017-05-25 18:55 | PDOC ---
Exam Jaun Demential Exam: Jaun Note: Please also refer to the separate dictated note~for this date of service dictated separately.~Patient seen individually. Discussed the patient with Nursing staff reviewed the chart.~Reviewed interim history and current functioning. Reviewed vital signs,~Labs/ Radiology~and current medications noted below. Continue current treatment with the changes noted in the dictated addendum note Assessment: Vital Signs: Vital Signs Date Time Temp Pulse Resp B/P (MAP) Pulse Ox O2 Delivery O2 Flow Rate FiO2 05/25/17 15:09 97.4 58 20 108/69 (82) 98 Room Air I&O Intake and Output 05/26/17 07:00 Intake Total 720 ml Balance 720 ml Intake Oral 720 ml # Voids 2 Labs: Laboratory Tests Test 05/24/17 19:10 05/24/17 19:18 Urine Collection Type Void Urine Color Yellow Urine Clarity Clear Urine pH 6.5 Urine Specific [place] 1.025 Urine Protein Neg (NEG-TRACE) Urine Glucose (UA) Neg mg/dL (NEG) Urine Ketones (Stick) Trace mg/dL (NEG) Urine Blood Neg (NEG) Urine Nitrite Neg (NEG) Urine Bilirubin Neg (NEG) Urine Urobilinogen Dipstick 1 mg/dL (0.2 mg/dL) Urine Leukocyte Esterase Neg (NEG) Urine RBC 0 /HPF (0-2) Urine WBC 0 /HPF (0-4) Urine Squamous Epithelial Cells None /LPF Urine Bacteria 0 /HPF (0-FEW) Urine Opiates Screen Neg (NEG) Urine Methadone Screen Neg (NEG) Urine Barbiturates Neg (NEG) Urine Phencyclidine Screen Neg (NEG) Urine Amphetamine/Methamphetamine Neg (NEG) Urine Benzodiazepines Screen Neg (NEG) Urine Cocaine Screen Neg (NEG) Urine Cannabinoids Screen Neg (NEG) Urine Ethyl Alcohol Neg (NEG) White Blood Count 4.8 x10^3/uL (4.0-11.0) Red Blood Count 5.34 x10^6/uL (4.30-5.70) Hemoglobin 13.1 g/dL (13.0-17.5) Hematocrit 40.1 % (39.0-53.0) Mean Corpuscular Volume 75 fL (79-100) L Mean Corpuscular Hemoglobin 25 pg (25-35) Mean Corpuscular Hemoglobin Concent 33 g/dL (31-37) Red Cell Distribution Width 15.3 % (11.5-14.5) H Platelet Count 234 x10^3/uL (140-400) Neutrophils (%) (Auto) 49 % (31-73) Lymphocytes (%) (Auto) 36 % (24-48) Monocytes (%) (Auto) 8 % (0-9) Eosinophils (%) (Auto) 5 % (0-3) H Basophils (%) (Auto) 1 % (0-3) Neutrophils # (Auto) 2.4 x10^3uL (1.8-7.7) Lymphocytes # (Auto) 1.8 x10^3/uL (1.0-4.8) Monocytes # (Auto) 0.4 x10^3/uL (0.0-1.1) Eosinophils # (Auto) 0.2 x10^3/uL (0.0-0.7) Basophils # (Auto) 0.1 x10^3/uL (0.0-0.2) Sodium Level 139 mmol/L (136-145) Potassium Level 4.0 mmol/L (3.5-5.1) Chloride Level 107 mmol/L (98-107) Carbon Dioxide Level 25 mmol/L (21-32) Anion Gap 7 (6-14) Blood Urea Nitrogen 17 mg/dL (8-26) Creatinine 0.7 mg/dL (0.7-1.3) Estimated GFR (Cockcroft-Gault) 151.1 Glucose Level 108 mg/dL (70-99) H Calcium Level 8.6 mg/dL (8.5-10.1) Magnesium Level 1.8 mg/dL (1.8-2.4) Total Bilirubin 0.3 mg/dL (0.2-1.0) Direct Bilirubin 0.1 mg/dL (0.0-0.2) Aspartate Amino Transferase (AST) 21 U/L (15-37) Alanine Aminotransferase (ALT) 26 U/L (16-63) Alkaline Phosphatase 88 U/L (46-116) Total Protein 7.8 g/dL (6.4-8.2) Albumin 3.6 g/dL (3.4-5.0) Salicylates Level 0.4 mg/dL (2.8-20.0) L Salicylate Last Dose Date 05/24/17 Salicylate Last Dose Time 0000 Acetaminophen Level < 2 mcg/mL (10-30) L Acetaminophen Last Dose Date 05/24/17 Acetaminophen Last Dose Time 0000 Ethyl Alcohol Level < 10 mg/dL (0-10) Current Medications: Meds: Current Medications Ziprasidone (Geodon) 40 mg BID PO Last administered on 05/25/17t 14:42; Start 05/24/17 at 21:00 Quetiapine Fumarate (SEROquel) 100 mg QHS PO ; Start 05/25/17 at 21:00 Active Scripts Active Naproxen Sodium 275 Mg Tablet 275 Mg PO BID 7 Days Depakote (Divalproex Sodium) 500 Mg Tablet.dr 500 Mg PO TID 30 Days Zyprexa (Olanzapine) 5 Mg Tablet 5 Mg PO HS 30 Days Depakote Er (Divalproex Sodium) 250 Mg Tab.er.24h 250 Mg PO TID 30 Days Zyprexa (Olanzapine) 5 Mg Tablet 1 Tab PO QHS Zyprexa (Olanzapine) 2.5 Mg Tablet 1 Tab PO QHS Zyprexa (Olanzapine) 2.5 Mg Tablet 1 Tab PO QHS Diagnosis: Problems: (1) Schizophrenia (2) Hallucination ALANNAH CELAYA MD May 25, 2017 18:55
[2017-05-25 19:44] VITALS: BP 111/65
[2017-05-25] MEDS ORDERED: QUEtiapine 100 MG TABLET. PO SCH (21:00)
[2017-05-25 23:22] VITALS: BP 103/65
[2017-05-26 06:10] VITALS: BP 105/70
[2017-05-26] MEDS ORDERED: Influenza vaccine per PROTOCOL. MC PRN (09:45)
[2017-05-26] MEDS ORDERED: OLANZapine 5 MG TABLET PO PRN (10:00)
[2017-05-26] MEDS: OLANZapine 5 MG TABLET PO SCH (10:26)
[2017-05-26 11:15] LABS: BASO # 0.1 x10^3/uL (0.0-0.2); BASO % 1 % (0-3); EOS # 0.1 x10^3/uL (0.0-0.7); EOS % 2 % (0-3); HEMATOCRIT 41.6 % (39.0-53.0); HEMOGLOBIN 13.8 g/dL (13.0-17.5); LYMPH # 1.3 x10^3/uL (1.0-4.8); LYMPH % 30 % (24-48); MEAN CORPUSCULAR HEMOGLOBIN 25 pg (25-35); MEAN CORPUSCULAR HGB CONC 33 g/dL (31-37); MEAN CORPUSCULAR VOLUME 75 fL (79-100); MONO # 0.4 x10^3/uL (0.0-1.1); MONO % 10 % (0-9); NEUT # 2.6 x10^3uL (1.8-7.7); NEUT % 57 % (31-73); PLATELET COUNT 223 x10^3/uL (140-400); RED BLOOD COUNT 5.57 x10^6/uL (4.30-5.70); RED CELL DISTRIBUTION WIDTH 15.2 % (11.5-14.5); WHITE BLOOD COUNT 4.5 x10^3/uL (4.0-11.0)
[2017-05-26 11:26] LABS: ALBUMIN 3.5 g/dL (3.4-5.0); ALBUMIN/GLOBULIN RATIO 0.8 (1.0-1.7); CREATININE 0.7 mg/dL (0.7-1.3); GFR 151.1; MAGNESIUM 1.7 mg/dL (1.8-2.4); POTASSIUM 4.1 mmol/L (3.5-5.1); TOTAL BILIRUBIN 0.3 mg/dL (0.2-1.0); TOTAL PROTEIN 7.7 g/dL (6.4-8.2)
[2017-05-26 11:59] VITALS: BP 116/62
[2017-05-26 15:36] VITALS: BP 110/70
--- NOTE | 2017-05-26 18:36 | PDOC ---
Exam Jaun Demential Exam: Jaun Note: Please also refer to the separate dictated note~for this date of service dictated separately.~Patient seen individually. Discussed the patient with Nursing staff reviewed the chart.~Reviewed interim history and current functioning. Reviewed vital signs,~Labs/ Radiology~and current medications noted below. Continue current treatment with the changes noted in the dictated addendum note Assessment: Vital Signs: Vital Signs Date Time Temp Pulse Resp B/P (MAP) Pulse Ox O2 Delivery O2 Flow Rate FiO2 05/26/17 15:36 97.6 56 20 110/70 (83) 97 Room Air I&O Intake and Output 05/27/17 07:00 Intake Total 840 ml Balance 840 ml Intake Oral 840 ml # Voids 2 Labs: Laboratory Tests Test 05/26/17 11:05 White Blood Count 4.5 x10^3/uL (4.0-11.0) Red Blood Count 5.57 x10^6/uL (4.30-5.70) Hemoglobin 13.8 g/dL (13.0-17.5) Hematocrit 41.6 % (39.0-53.0) Mean Corpuscular Volume 75 fL (79-100) L Mean Corpuscular Hemoglobin 25 pg (25-35) Mean Corpuscular Hemoglobin Concent 33 g/dL (31-37) Red Cell Distribution Width 15.2 % (11.5-14.5) H Platelet Count 223 x10^3/uL (140-400) Neutrophils (%) (Auto) 57 % (31-73) Lymphocytes (%) (Auto) 30 % (24-48) Monocytes (%) (Auto) 10 % (0-9) H Eosinophils (%) (Auto) 2 % (0-3) Basophils (%) (Auto) 1 % (0-3) Neutrophils # (Auto) 2.6 x10^3uL (1.8-7.7) Lymphocytes # (Auto) 1.3 x10^3/uL (1.0-4.8) Monocytes # (Auto) 0.4 x10^3/uL (0.0-1.1) Eosinophils # (Auto) 0.1 x10^3/uL (0.0-0.7) Basophils # (Auto) 0.1 x10^3/uL (0.0-0.2) Sodium Level 141 mmol/L (136-145) Potassium Level 4.1 mmol/L (3.5-5.1) Chloride Level 106 mmol/L (98-107) Carbon Dioxide Level 28 mmol/L (21-32) Anion Gap 7 (6-14) Blood Urea Nitrogen 12 mg/dL (8-26) Creatinine 0.7 mg/dL (0.7-1.3) Estimated GFR (Cockcroft-Gault) 151.1 BUN/Creatinine Ratio 17 (6-20) Glucose Level 83 mg/dL (70-99) Calcium Level 9.0 mg/dL (8.5-10.1) Magnesium Level 1.7 mg/dL (1.8-2.4) L Total Bilirubin 0.3 mg/dL (0.2-1.0) Aspartate Amino Transferase (AST) 16 U/L (15-37) Alanine Aminotransferase (ALT) 24 U/L (16-63) Alkaline Phosphatase 83 U/L (46-116) Total Protein 7.7 g/dL (6.4-8.2) Albumin 3.5 g/dL (3.4-5.0) Albumin/Globulin Ratio 0.8 (1.0-1.7) L Current Medications: Meds: Current Medications Ziprasidone (Geodon) 40 mg BID PO Last administered on 05/25/17 20:00; Start 05/24/17 at 21:00; Stop 05/26/17 at 10:01; Status DC Quetiapine Fumarate (SEROquel) 100 mg QHS PO Last administered on 05/25/17 20: 00; Start 05/25/17 at 21:00; Stop 05/26/17 at 10:01; Status DC Info (FLU VACCINE per PROTOCOL) 1 ea PRN 1X PRN MC PER PROTOCOL; Start at 09:45; Stop 05/26/17 at 09:46; Status DC Divalproex Sodium (Depakote Er) 500 mg QHS PO ; Start 05/26/17 at 21:00 Olanzapine (ZyPREXA) 5 mg DAILY PO Last administered on 05/26/17 10:26; Start 05/26/17 at 10:15 Olanzapine (ZyPREXA) 5 mg PRN Q2HR PRN PO AGITATION Last administered on 9/18/ 17at 18:11; Start 05/26/17 at 10:00 Active Scripts Active Naproxen Sodium 275 Mg Tablet 275 Mg PO BID 7 Days Depakote (Divalproex Sodium) 500 Mg Tablet.dr 500 Mg PO TID 30 Days Zyprexa (Olanzapine) 5 Mg Tablet 5 Mg PO HS 30 Days Depakote Er (Divalproex Sodium) 250 Mg Tab.er.24h 250 Mg PO TID 30 Days Zyprexa (Olanzapine) 5 Mg Tablet 1 Tab PO QHS Zyprexa (Olanzapine) 2.5 Mg Tablet 1 Tab PO QHS Zyprexa (Olanzapine) 2.5 Mg Tablet 1 Tab PO QHS Diagnosis: Problems: (1) Hallucination (2) Schizophrenia (3) Altered mental status ALANNAH CELAYA MD May 26, 2017 18:36
[2017-05-26 20:22] VITALS: BP 116/67
[2017-05-26] MEDS ORDERED: DIVALPROEX ER 500 MG TAB.ER.24H PO SCH (21:00)
[2017-05-26 23:00] VITALS: BP 118/76
--- NOTE | 2017-05-27 03:04 | PN ---
DATE: 05/26/2017 CURRENT PROBLEMS: 1. Schizophrenia. 2. Auditory hallucinations. 3. Homeless status. SUBJECTIVE: Awaiting placement for hallucinations. He did not want to take the Geodon. He states it gives him nightmares and gives him aches and pains. He is certainly willing to take Depakote and Zyprexa. He was up to the shower and is in his room reading. OBJECTIVE: VITAL SIGNS: Blood pressure 116/62, pulse 58, respirations 20, temperature 98.1, pulse ox 99% on room air. GENERAL: He is alert, innovated, very loud, but not abusive, calm and cooperative. HEENT: His tongue was moist. LUNGS: Clear. CARDIOVASCULAR: Regular rhythm and rate. Short systolic murmur heard. EXTREMITIES: Without edema. PLAN: Await starting on the Depakote and Zyprexa today and await hopefully placement, which we have not had any success so far. RACHELLE BARRETT DO DR: SHANAE/esperanza JOB#: [id number] / [id number]
--- NOTE | 2017-05-27 04:49 | CONS ---
DATE OF CONSULTATION: 05/25/2017 IDENTIFYING DATA: This is a late entry 05/25/2017, covers elements not covered in my initial note of 05/25/2017. The patient is a 41-year-old single Afro-[place]ian male seen on [facility], room 109 for a psychiatric consult requested by Dr. Wells on account of the patient's active hallucinations and paranoia within the context of his diagnosis of schizoaffective disorder, bipolar type mixed with psychotic features. The patient was seen individually. Discussed with nursing staff and reviewed the chart. CHIEF COMPLAINT: "I've been hearing them talk in Latin." HISTORY OF PRESENT ILLNESS: The patient reportedly has a long history of schizoaffective disorder, bipolar type. He has been treated in the past at the [facility] and has been noncompliant with his psychotropics recently. He presented to the Emergency Room with active hallucinations mostly auditory. There are no command hallucinations. No suicidal or homicidal ideation. He does also have a questionable past history of posttraumatic stress disorder. Nevertheless, attempts were made to place him in a psychiatric facility and he was refused by [facility] and admitted to [facility] till appropriate placement was arranged. No active suicidal or homicidal ideation. He denied any alcohol or drug abuse. PAST PSYCHIATRIC HISTORY: As above. MEDICAL HISTORY: Noncontributory. ALLERGIES: EGGS AND SHELLFISH. SURGICAL HISTORY: Past history of hernia repair. CURRENT PSYCHOTROPICS: MRAD was reviewed. FAMILY HISTORY: Biological parents are . He was raised in a foster placement and foster parents are as well. Unknown biological family. SOCIAL HISTORY: The patient is single and has no children. Never . No alcohol or drug abuse history is noted. REVIEW OF SYSTEMS: He is somewhat tired, lethargic, frequently dropping off to sleep as I met with him in his room. No CV, , pulmonary, eye, or ENT system symptoms on review. MENTAL STATUS EXAMINATION: The patient is oriented to himself and situation. Speech moderate latency and often responses monosyllabic. Abstraction fair, computation impaired, attention span short, and language function intact. Intellect average. Insight fair. Judgment intact to standard questioning. No active suicidal or homicidal ideation. LABORATORY DATA: Reviewed. IMPRESSION: Schizoaffective disorder, bipolar type, mixed with psychotic features; anxiety disorder, unspecified; and cognitive disorder, unspecified. Rest as above. PLAN: Continue the patient on his current psychotropics. He has been noncompliant with his Geodon and may consider having him back on Zyprexa that he states he has done best on together with Depakote. Much of this stabilization would best be done on an inpatient psychiatric setting, but I would be happy to monitor and adjust these while he is at [facility]. Dr. Wells, thank you for the opportunity to participate in your patient's care. We will follow with you. MAN Tigre CELAYA MD DR: ЮЛИЯ/esperanza JOB#: [id number] / [id number]
[2017-05-27 05:11] VITALS: BP 123/81
[2017-05-27 06:36] LABS: BASO % 1 % (0-3); EOS # 0.1 x10^3/uL (0.0-0.7); EOS % 3 % (0-3); HEMATOCRIT 43.3 % (39.0-53.0); HEMOGLOBIN 14.3 g/dL (13.0-17.5); LYMPH # 1.6 x10^3/uL (1.0-4.8); LYMPH % 38 % (24-48); MEAN CORPUSCULAR HEMOGLOBIN 25 pg (25-35); MEAN CORPUSCULAR HGB CONC 33 g/dL (31-37); MEAN CORPUSCULAR VOLUME 75 fL (79-100); MONO # 0.3 x10^3/uL (0.0-1.1); MONO % 8 % (0-9); NEUT # 2.1 x10^3uL (1.8-7.7); NEUT % 50 % (31-73); PLATELET COUNT 235 x10^3/uL (140-400); RED BLOOD COUNT 5.76 x10^6/uL (4.30-5.70); RED CELL DISTRIBUTION WIDTH 15.2 % (11.5-14.5); WHITE BLOOD COUNT 4.2 x10^3/uL (4.0-11.0)
[2017-05-27 06:38] LABS: ALBUMIN 3.6 g/dL (3.4-5.0); ALBUMIN/GLOBULIN RATIO 0.8 (1.0-1.7); CALCIUM 8.8 mg/dL (8.5-10.1); CREATININE 0.8 mg/dL (0.7-1.3); GFR 129.5; MAGNESIUM 1.7 mg/dL (1.8-2.4); POTASSIUM 3.7 mmol/L (3.5-5.1); TOTAL BILIRUBIN 0.4 mg/dL (0.2-1.0); TOTAL PROTEIN 7.9 g/dL (6.4-8.2)
[2017-05-27] MEDS ORDERED: FERROUS SULFATE 325 MG TABLET PO SCH (08:00)
[2017-05-27] MEDS ORDERED: MAGNESIUM CHLORIDE ER 64 MG TABLET.ER PO SCH (09:00)
[2017-05-27] MEDS ORDERED: MULTIVITAMIN with MINERAL TABLET. PO SCH (09:00)
[2017-05-27] MEDS: OLANZapine 5 MG TABLET PO SCH (09:02)
[2017-05-27] MEDS ORDERED: DIVA500T4 PO (09:38)
[2017-05-27] MEDS ORDERED: OLAN5TAB9 PO (09:38)
[2017-05-27] MEDS ORDERED: FERR325T72 PO (09:38)
[2017-05-27] MEDS ORDERED: Magnesium Chloride Er PO (09:38)
[2017-05-27 09:57] VITALS: BP 133/89
--- NOTE | 2017-05-27 12:01 | PDOC3 ---
Discharge Summary Visit Information Date of Admission: May 24, 2017 Date of Discharge: May 27, 2017 Final Diagnosis Problems Medical Problems: (1) Altered mental status Status: Acute (2) Schizophrenia Status: Acute IMPRESSION: Schizoaffective disorder, bipolar type, mixed with psychotic features; anxiety disorder, unspecified; and cognitive disorder, unspecified. Rest as above. HYPOMAGNESEMIA Problems: Brief Hospital Course Allergies Allergies Coded Allergies Type Severity Reaction Last Updated Verified egg Allergy Intermediate 04/14/17 Yes shellfish derived Allergy Intermediate 04/14/17 Yes Vital Signs Vital Signs Date Time Temp Pulse Resp B/P (MAP) Pulse Ox O2 Delivery O2 Flow Rate FiO2 05/27/17 09:57 97.5 72 18 133/89 (104) 99 Room Air Lab Results Laboratory Tests Test 05/26/17 11:05 05/27/17 05:43 White Blood Count 4.5 x10^3/uL (4.0-11.0) 4.2 x10^3/uL (4.0-11.0) Red Blood Count 5.57 x10^6/uL (4.30-5.70) 5.76 x10^6/uL (4.30-5.70) Hemoglobin 13.8 g/dL (13.0-17.5) 14.3 g/dL (13.0-17.5) Hematocrit 41.6 % (39.0-53.0) 43.3 % (39.0-53.0) Mean Corpuscular Volume 75 fL (79-100) 75 fL (79-100) Mean Corpuscular Hemoglobin 25 pg (25-35) 25 pg (25-35) Mean Corpuscular Hemoglobin Concent 33 g/dL (31-37) 33 g/dL (31-37) Red Cell Distribution Width 15.2 % (11.5-14.5) 15.2 % (11.5-14.5) Platelet Count 223 x10^3/uL (140-400) 235 x10^3/uL (140-400) Neutrophils (%) (Auto) 57 % (31-73) 50 % (31-73) Lymphocytes (%) (Auto) 30 % (24-48) 38 % (24-48) Monocytes (%) (Auto) 10 % (0-9) 8 % (0-9) Eosinophils (%) (Auto) 2 % (0-3) 3 % (0-3) Basophils (%) (Auto) 1 % (0-3) 1 % (0-3) Neutrophils # (Auto) 2.6 x10^3uL (1.8-7.7) 2.1 x10^3uL (1.8-7.7) Lymphocytes # (Auto) 1.3 x10^3/uL (1.0-4.8) 1.6 x10^3/uL (1.0-4.8) Monocytes # (Auto) 0.4 x10^3/uL (0.0-1.1) 0.3 x10^3/uL (0.0-1.1) Eosinophils # (Auto) 0.1 x10^3/uL (0.0-0.7) 0.1 x10^3/uL (0.0-0.7) Basophils # (Auto) 0.1 x10^3/uL (0.0-0.2) 0.0 x10^3/uL (0.0-0.2) Sodium Level 141 mmol/L (136-145) 140 mmol/L (136-145) Potassium Level 4.1 mmol/L (3.5-5.1) 3.7 mmol/L (3.5-5.1) Chloride Level 106 mmol/L (98-107) 104 mmol/L (98-107) Carbon Dioxide Level 28 mmol/L (21-32) 26 mmol/L (21-32) Anion Gap 7 (6-14) 10 (6-14) Blood Urea Nitrogen 12 mg/dL (8-26) 9 mg/dL (8-26) Creatinine 0.7 mg/dL (0.7-1.3) 0.8 mg/dL (0.7-1.3) Estimated GFR (Cockcroft-Gault) 151.1 129.5 BUN/Creatinine Ratio 17 (6-20) 11 (6-20) Glucose Level 83 mg/dL (70-99) 126 mg/dL (70-99) Calcium Level 9.0 mg/dL (8.5-10.1) 8.8 mg/dL (8.5-10.1) Magnesium Level 1.7 mg/dL (1.8-2.4) 1.7 mg/dL (1.8-2.4) Total Bilirubin 0.3 mg/dL (0.2-1.0) 0.4 mg/dL (0.2-1.0) Aspartate Amino Transf (AST/SGOT) 16 U/L (15-37) 16 U/L (15-37) Alanine Aminotransferase (ALT/SGPT) 24 U/L (16-63) 24 U/L (16-63) Alkaline Phosphatase 83 U/L (46-116) 79 U/L (46-116) Total Protein 7.7 g/dL (6.4-8.2) 7.9 g/dL (6.4-8.2) Albumin 3.5 g/dL (3.4-5.0) 3.6 g/dL (3.4-5.0) Albumin/Globulin Ratio 0.8 (1.0-1.7) 0.8 (1.0-1.7) Brief Hospital Course Mr. Alva is a 41 old MALE WITH SIGNIFICANT MENTAL ILLNESS WHO PRESENTED WITH AUDITORY HALLUCINATIONS AND REQUESTED HOSPITALIZATION. HE WAS SEEN BY DR. CELAYA AND WAS STARTED ON ZYPREXA AND DEPAKOTE. HEROIC ATTEMPTS TO PLACE HIM IN A PSYCHIATRY FACILITY WERE UNSUCESSFUL. THE CONSORTIUM WAS CONSULTED AND WILL SEE HIM AT THE [facility]ANCE [facility] UPON DISCHARGE. HE REMAINED STABLE THROUGHOUT HIS HOSPITALIZATION AND HIS HALLUCINATIONS WERE LESS, BUT DID CONTINUE.. Discharge Information Condition at Discharge: Improved Disposition/Orders: Other (TO GO DIRECTLY BY CAB TO THE GUIDANCE CENTER) Dischare Medications Current Medications Ziprasidone (Geodon) 40 mg BID PO Last administered on 05/25/17 20:00; Start 05/24/17 at 21:00; Stop 05/26/17 at 10:01; Status DC Quetiapine Fumarate (SEROquel) 100 mg QHS PO Last administered on 05/25/17 20: 00; Start 05/25/17 at 21:00; Stop 05/26/17 at 10:01; Status DC Info (FLU VACCINE per PROTOCOL) 1 ea PRN 1X PRN MC PER PROTOCOL; Start at 09:45; Stop 05/26/17 at 09:46; Status DC Divalproex Sodium (Depakote Er) 500 mg QHS PO Last administered on 05/26/17 20 :29; Start 05/26/17 at 21:00; Stop 05/27/17 at 09:56; Status DC Olanzapine (ZyPREXA) 5 mg DAILY PO Last administered on 05/27/17 09:02; Start 05/26/17 at 10:15; Stop 05/27/17 at 09:56; Status DC Olanzapine (ZyPREXA) 5 mg PRN Q2HR PRN PO AGITATION Last administered on 18:11; Start 05/26/17 at 10:00; Stop 05/27/17 at 09:56; Status DC Multivitamins/ Calcium (Thera-M Plus) 1 tab DAILY PO ; Start 05/27/17 at 09:00; Stop 05/27/17 at 09:56; Status DC Ferrous Sulfate (Feosol) 325 mg DAILYWBKFT PO ; Start 05/27/17 at 08:00; Stop at 09:56; Status DC Magnesium Chloride (Mag Delay) 64 mg DAILY PO Last administered on 05/27/17 09 :01; Start 05/27/17 at 09:00; Stop 05/27/17 at 09:56; Status DC Active Scripts Active Olanzapine 5 Mg Tablet 5 Mg PO DAILY 30 Days [Magnesium Chloride Er] 64 MG Tablet.er 64 Mg PO DAILY 30 Days Feosol (Ferrous Sulfate) 325 Mg Tablet 325 Mg PO DAILYWBKFT 30 Days Depakote Er (Divalproex Sodium) 500 Mg Tab.er.24h 500 Mg PO QHS 30 Days Patient Instructions Patient Instuctions HE WAS ENCOURAGED TO GET HIS MEDICATIONS FILLED AT THE PHARMACY AND HE SAID HE WILL THINK ABOUT IT. RACHELLE BARRETT DO May 27, 2017 12:01
--- NOTE | 2017-05-27 20:46 | PN ---
DATE: 05/26/2017 PSYCHOTIC PROGRESS NOTE This note covers elements not covered in my initial note of 05/26/2017. SUBJECTIVE: I have been called by the nursing staff earlier in the day. The patient was refusing Geodon and said he done best on Zyprexa and Depakote and would only agree to take those 2 medications. I requested that the Geodon be discontinued together with the Seroquel and he will be started on Zyprexa 5 mg daily, plus 5 mg q.2h. p.r.n. psychosis, agitation, max 20 mg in 24 hours. He is also on Depakote ER 500 mg p.o. at bedtime and valproic acid level. CBC, CMP has abated to be done on 05/29/2017. In the meantime, the patient remains psychotic, states he is hearing internal voices, but he is not able to make out what they are saying because they are talking in Latin. No clear suicidal or homicidal ideation. REVIEW OF SYSTEMS: No CV, , pulmonary, eye, ENT system symptoms on review. MENTAL STATUS EXAMINATION: I met with him in his room. He is quite animated, giving me high fives. Speech coherent, rapid at times. Abstraction fair, computation impaired, language function intact. He remains psychotic, somewhat paranoid. No suicidal or homicidal ideation. LABORATORY DATA: Reviewed. IMPRESSION: Schizoaffective disorder, bipolar type, mixed with psychotic disorder, unspecified. Rest unchanged. PLAN: Continue current psychotropics, may need to increase Zyprexa and adjust the Depakote to reach a therapeutic level, but the patient does need transfer to a psychiatric inpatient service and staff are attempting to make this happen as soon as possible. ALANNAH CELAYA MD DR: ЮЛИЯ/esperanza JOB#: [id number] / [id number]
== END 2017-05-27 09:55 | disposition home or self-care (01) | DRG 885 ==
LOC: ER 17:56 → INTOOBSV 05-25 10:06 → OBSVTOIN 05-25 10:06 → 1 SOUTH 05-25 10:06
PROVIDERS: ADMIT Internal Medicine; ATTEND Internal Medicine
DX: F25.0 Schizoaffective disorder, bipolar type (principal); E83.42 Hypomagnesemia; F41.9 Anxiety disorder, unspecified; F43.10 Post-traumatic stress disorder, unspecified; Z91.19 Patient's noncompliance with other medical treatment and regimen; Z79.899 Other long term (current) drug therapy; Z91.012 Allergy to eggs; Z91.013 Allergy to seafood; Z59.0 Homelessness
CPT/HCPCS: 36415; 71101; 80048; 80053; 80076; 80307; 81001; 83735; 85025; G0480; 99285-25; G0479

== ENCOUNTER 2017-05-27 22:04 | Emergency (ER) | payer MEDICARE ==
[~2017-05-27] VITALS: Ht 321.3 cm; Wt 85.3 kg
[~2017-05-27 22:04] MED LIST changes: +DIVA500T4 PO; +FERR325T72 PO; +Magnesium Chloride Er PO; +OLAN5TAB9 PO
[2017-05-27 22:15] VITALS: BP 119/78
--- NOTE | 2017-05-28 03:57 | ED.ADGEN ---
Past History Past Medical History: Anxiety, Bipolar, Depression, Schizophrenia, Other Past Surgical History: No Surgical History Alcohol Use: None Drug Use: None Adult General Chief Complaint Chief Complaint Chronic hallucinations HPI HPI Patient is a 41-year-old -[place] male with history of bipolar schizophrenia with chronic psychosis who presents to the emergency department with hearing voices. Patient is well-known to this emergency department presents multiple times per month for the same complaint. Is not homicidal suicidal and denies drug abuse. Patient is noncompliant with medications. Denies any new symptoms or complaint. Review of Systems Review of Systems Review symptoms as per history of present illness. All other review symptoms are negative. Allergies Allergies Allergies Coded Allergies Type Severity Reaction Last Updated Verified egg Allergy Intermediate 04/14/17 Yes shellfish derived Allergy Intermediate 04/14/17 Yes Physical Exam Physical Exam Constitutional: Well developed, well nourished, no acute distress, non-toxic appearance. [] HENT: Normocephalic, atraumatic, bilateral external ears normal, oropharynx moist, no oral exudates, nose normal. [] Eyes: PERRLA, EOMI, conjunctiva normal, no discharge. [] Neck: Normal range of motion, no tenderness, supple, no stridor. [] Cardiovascular:Heart rate regular rhythm, no murmur [] Lungs & Thorax: Bilateral breath sounds clear to auscultation. [] Neurologic: Alert and oriented X 1, normal motor function, normal sensory function, no focal deficits noted. [] Psychologic: Affect animated, patient speaking to himself, auditory hallucinations, SI/HI. [] Current Patient Data Vital Signs Vital Signs Date Time Temp Pulse Resp B/P (MAP) Pulse Ox O2 Delivery O2 Flow Rate FiO2 05/27/17 22:15 80 20 99 Room Air EKG EKG [] Radiology/Procedures Radiology/Procedures [] Course & Med Decision Making Course & Med Decision Making Pertinent Labs and Imaging studies reviewed. (See chart for details) [Patient is in usual state of health. Declines further evaluation or workup.] Final Impression Final Impression [#1 chronic psychosis] Problems: Dragon Disclaimer Dragon Disclaimer This electronic medical record was generated, in whole or in part, using a voice recognition dictation system. DEVIKA MUÑIZ DO May 28, 2017 03:57
== END 2017-05-27 22:49 | disposition home or self-care (01) ==
LOC: ER 22:04
DX: F28 Other psychotic disorder not due to a substance or known physiological condition (principal); F20.9 Schizophrenia, unspecified; F41.9 Anxiety disorder, unspecified; F31.9 Bipolar disorder, unspecified; Z91.14 Patient's other noncompliance with medication regimen; Z91.012 Allergy to eggs; Z91.013 Allergy to seafood
CPT/HCPCS: 99284

== ENCOUNTER 2017-05-28 09:02 | Emergency (ER) | payer MEDICARE ==
[~2017-05-28] VITALS: Ht 321.3 cm; Wt 85.3 kg
[2017-05-28 09:19] VITALS: BP 156/56
--- NOTE | 2017-05-28 09:27 | PHYS DOC ---
Past History Past Medical History: Diabetes, Other Past Surgical History: Other Alcohol Use: None Drug Use: None Adult General Chief Complaint Chief Complaint: HALLUCINATIONS AUDIBLE/VISUAL HPI HPI Patient is a 41 year old M who presents with auditory and visible hallucinations. There has a diagnosis of schizophrenia. He has no new symptoms at this time. He has no pain. He has no difficulty breathing. He has had no change in bowel or bladder habits. He has no injury. Review of Systems Review of Systems Constitutional: Denies fever or chills [] Eyes: Denies change in visual acuity, redness, or eye pain [] HENT: Denies nasal congestion or sore throat [] Respiratory: Denies cough or shortness of breath [] Cardiovascular: No additional information not addressed in HPI [] GI: Denies abdominal pain, nausea, vomiting, bloody stools or diarrhea [] : Denies dysuria or hematuria [] Musculoskeletal: Denies back pain or joint pain [] Integument: Denies rash or skin lesions [] Neurologic: Denies headache, focal weakness or sensory changes [] Endocrine: Denies polyuria or polydipsia [] Family History Family History Family history reviewed Current Medications Current Medications Medications reviewed Allergies Allergies Allergies Coded Allergies Type Severity Reaction Last Updated Verified egg Allergy Intermediate 04/14/17 Yes shellfish derived Allergy Intermediate 04/14/17 Yes Physical Exam Physical Exam Constitutional: Well developed, well nourished, no acute distress, non-toxic appearance. [] HENT: Normocephalic, atraumatic, bilateral external ears normal, oropharynx moist, no oral exudates, nose normal. [] Eyes: PERRLA, EOMI, conjunctiva normal, no discharge. [] Neck: Normal range of motion, no tenderness, supple, no stridor. [] Cardiovascular:Heart rate regular rhythm, no murmur [] Lungs & Thorax: Bilateral breath sounds clear to auscultation [] Abdomen: Bowel sounds normal, soft, no tenderness, no masses, no pulsatile masses. [] Skin: Warm, dry, no erythema, no rash. [] Back: No tenderness, no CVA tenderness. [] Extremities: No tenderness, no cyanosis, no clubbing, ROM intact, no edema. [] Neurologic: Alert and oriented X 3, normal motor function, normal sensory function, no focal deficits noted. [] Psychologic: Auditory and visual hallucinations Current Patient Data Vital Signs Vital Signs Date Time Temp Pulse Resp B/P (MAP) Pulse Ox O2 Delivery O2 Flow Rate FiO2 05/28/17 09:19 98.0 80 20 99 Room Air EKG EKG [] Radiology/Procedures Radiology/Procedures [] Course & Med Decision Making Course & Med Decision Making Pertinent Labs and Imaging studies reviewed. (See chart for details) Ishmael was recently discharged from the hospital for the same symptoms. He frequents the emergency room with the same symptoms. It's very clear that he does not have any new symptoms at this time Dragon Disclaimer Dragon Disclaimer This chart was dictated in whole or in part using Voice Recognition software in a busy, high-work load, and often noisy Emergency Department environment. It may contain unintended and wholly unrecognized errors or omissions. Departure Departure: Impression: Primary Impression: Hallucination Disposition: 01 HOME, SELF-CARE Condition: STABLE Referrals: PCPSTEVE (PCP) Patient Instructions: Hallucinations and Delusions Additional Instructions: Ishmael was seen in the emergency department for hallucinations. No emergency medical condition was found on history or physical exam. His symptoms are noted to be chronic. The guidance Center was contacted and recommended that he be seen there as soon as possible for further management. This recommendation was given to SHARIFA Pardo MD May 28, 2017 09:27
== END 2017-05-28 09:37 | disposition home or self-care (01) ==
LOC: ER 09:02
DX: R44.0 Auditory hallucinations (principal); R44.1 Visual hallucinations; E11.9 Type 2 diabetes mellitus without complications; F20.9 Schizophrenia, unspecified; Z91.012 Allergy to eggs; Z91.013 Allergy to seafood
CPT/HCPCS: 99284

== ENCOUNTER 2017-05-28 20:30 | Emergency (ER) | payer MEDICARE ==
[~2017-05-28] VITALS: Ht 321.3 cm; Wt 85.3 kg
[2017-05-28 23:40] VITALS: BP 127/85
--- NOTE | 2017-05-29 01:35 | ED.ADGEN ---
Past History Past Medical History: Diabetes, Other Past Surgical History: Other Alcohol Use: None Drug Use: None Adult General HPI HPI Patient is a 41-year-old man, history of type 2 diabetes mellitus, schizophrenia , who is well-known to the emergency department staff from previous visits, who presents complaining of hallucinations. Patient was seen in the emergency department twice already in the past 24 hours, after recent admission for psychiatric evaluation. Patient had been told previously to follow-up with a guidance under but has not done so. Patient currently states that he "is hearing the same voices", he denies any suicidal or homicidal deviation, denies that the voices are telling him "anything bad". He is declining any medication or medical management, and denies any other complaints. When asked what we can do for him tonight if he does not wish to be treated for his voices are receive any additional medical treatment or evaluation, patient states "I would like some orange juice". Review of Systems Review of Systems Constitutional: Denies fever or chills [] Eyes: Denies change in visual acuity, redness, or eye pain [] HENT: Denies nasal congestion or sore throat [] Respiratory: Denies cough or shortness of breath [] Cardiovascular: No additional information not addressed in HPI [] GI: Denies abdominal pain, nausea, vomiting, bloody stools or diarrhea [] : Denies dysuria or hematuria [] Musculoskeletal: Denies back pain or joint pain [] Integument: Denies rash or skin lesions [] Neurologic: Denies headache, focal weakness or sensory changes [] Endocrine: Denies polyuria or polydipsia [] Psychiatric: Patient complaining of multiple voices Allergies Allergies Allergies Coded Allergies Type Severity Reaction Last Updated Verified egg Allergy Intermediate 04/14/17 Yes shellfish derived Allergy Intermediate 04/14/17 Yes Physical Exam Physical Exam Constitutional: Well developed, well nourished, no acute distress, non-toxic appearance. [] HENT: Normocephalic, atraumatic, bilateral external ears normal, oropharynx moist, no oral exudates, nose normal. [] Eyes: PERRLA, EOMI, conjunctiva normal, no discharge. [] Neck: Normal range of motion, no tenderness, supple, no stridor. [] Cardiovascular:Heart rate regular rhythm, no murmur, S1, S2, no rubs or gallops. [] Lungs & Thorax: Bilateral breath sounds clear to auscultation, no wheezing, rhonchi, rales. [] Abdomen: Bowel sounds normal, soft, no tenderness, no masses, no pulsatile masses. [] Skin: Warm, dry, no erythema, no rash. [] Back: No tenderness, no CVA tenderness. [] Extremities: No tenderness, no cyanosis, no clubbing, ROM intact, no edema. [] Neurologic: Alert and oriented X 3, normal motor function, normal sensory function, no focal deficits noted. [] Psychologic: Patient with strange affect, is spotting to internal stimuli, however is easily redirectable, answering all questions appropriately, alert and oriented 3. [] EKG EKG Not indicated.[] Radiology/Procedures Radiology/Procedures Not indicated.[] Course & Med Decision Making Course & Med Decision Making Pertinent Labs and Imaging studies reviewed. (See chart for details) Patient is calm and cooperative in the emergency department, answering all questions appropriately, is lucid, although he will occasionally respond to internal stimuli. Not exhibiting any aggressive behavior, denies any self injures behaviors or concerns. He states that he is hearing "the same voices", which he has been hearing during previous evaluations. He declines any medical complaints, and states that he "doesn't want any medication for the voices". As stated, when I asked what else we could do for the patient as he did not want any medical or psychiatric evaluation or treatment, patient requested orange juice. I stated to the patient that we are here to provide medical care, and as he has no medical medical complaints, and no desire to be treated for psychiatric issues, and is lucid in the emergency department as stated, that we would not be able to provide him with additional food or drink. Patient voiced understanding, and states "then I guess just have me go then". He did complete discharge paperwork with nursing staff, and Axid the emergency department without issue.[] Final Impression Final Impression [] Problems: Dragon Disclaimer Dragon Disclaimer This electronic medical record was generated, in whole or in part, using a voice recognition dictation system. Departure: Impression: Primary Impression: Hallucination Disposition: 01 HOME, SELF-CARE Condition: STABLE MATIASBERHANE Jeison BAIG May 29, 2017 01:35
== END 2017-05-29 00:11 | disposition home or self-care (01) ==
LOC: ER 20:30
DX: R44.0 Auditory hallucinations (principal); F20.9 Schizophrenia, unspecified; E11.9 Type 2 diabetes mellitus without complications; Z91.012 Allergy to eggs; Z91.013 Allergy to seafood
CPT/HCPCS: 99284

== ENCOUNTER 2017-05-29 20:28 | Emergency (ER) | payer MEDICARE ==
[~2017-05-29] VITALS: Ht 169.5 cm; Wt 83.9 kg
[2017-05-29 20:42] VITALS: BP 125/81
--- NOTE | 2017-05-29 20:53 | PHYS DOC ---
Past History Past Medical History: Anxiety, Bipolar, Depression, Schizophrenia, Other Past Surgical History: Other Alcohol Use: None Drug Use: None Adult General Chief Complaint Chief Complaint: HALLUCINATIONS AUDIBLE/VISUAL HPI HPI 41-year-old male with a history of schizophrenia very well known to our emergency medicine service for frequent visits for minor concerns, now presents to our emergency department reporting auditory hallucinations. Patient states he is hearing some voices however they are not telling him anything disturbing. He has no suicidal ideation or homicidal ideation. He is not using drugs has not overdosed or injured himself in any way. Patient does not feel he is a danger to himself or others and is able to function as he normally would. He has no other complaints at this time. Review of Systems Review of Systems Constitutional: Denies fever or chills [] Eyes: Denies change in visual acuity, redness, or eye pain [] HENT: Denies nasal congestion or sore throat [] Respiratory: Denies cough or shortness of breath [] Cardiovascular: No additional information not addressed in HPI [] GI: Denies abdominal pain, nausea, vomiting, bloody stools or diarrhea [] : Denies dysuria or hematuria [] Musculoskeletal: Denies back pain or joint pain [] Integument: Denies rash or skin lesions [] Neurologic: Denies headache, focal weakness or sensory changes [] Endocrine: Denies polyuria or polydipsia [] Allergies Allergies Allergies Coded Allergies Type Severity Reaction Last Updated Verified egg Allergy Intermediate 04/14/17 Yes shellfish derived Allergy Intermediate 04/14/17 Yes Physical Exam Physical Exam Well appearing perfectly groomed 41-year-old male alert communicative cheerful and cooperative in no acute distress completely normal exam including extended neurologic exam Constitutional: Well developed, well nourished, no acute distress, non-toxic appearance. [] HENT: Normocephalic, atraumatic, bilateral external ears normal, oropharynx moist, no oral exudates, nose normal. [] Eyes: PERRLA, EOMI, conjunctiva normal, no discharge. [] Neck: Normal range of motion, no tenderness, supple, no stridor. [] Cardiovascular:Heart rate regular rhythm, no murmur [] Lungs & Thorax: Bilateral breath sounds clear to auscultation [] Abdomen: Bowel sounds normal, soft, no tenderness, no masses, no pulsatile masses. [] Skin: Warm, dry, no erythema, no rash. [] Back: No tenderness, no CVA tenderness. [] Extremities: No tenderness, no cyanosis, no clubbing, ROM intact, no edema. [] Neurologic: Alert and oriented X 3, normal motor function, normal sensory function, no focal deficits noted. [] Psychologic: Affect normal, judgement normal, mood normal. [] Current Patient Data Vital Signs Vital Signs Date Time Temp Pulse Resp B/P (MAP) Pulse Ox O2 Delivery O2 Flow Rate FiO2 05/29/17 20:42 98.4 82 18 99 Room Air EKG EKG [] Radiology/Procedures Radiology/Procedures [] Course & Med Decision Making Course & Med Decision Making Pertinent Labs and Imaging studies reviewed. (See chart for details) Signs and symptoms consistent with exacerbation of schizophrenia in a patient with a long history of psychiatric issues who is well known to our emergency medicine service. No indication for emergent psychiatric evaluation, further workup or treatment of any kind. patient agrees with outpatient follow-up and strict return precautions given Dragon Disclaimer Dragon Disclaimer This chart was dictated in whole or in part using Voice Recognition software in a busy, high-work load, and often noisy Emergency Department environment. It may contain unintended and wholly unrecognized errors or omissions. Departure Departure: Impression: Primary Impression: Auditory hallucinations Additional Impression: Schizophrenia Disposition: HOME, SELF-CARE Condition: GOOD Referrals: PCP,NO (PCP) Patient Instructions: Schizophrenia Additional Instructions: You have described that you're hearing some voices tonight. Thankfully, You do not have any signs of a psychiatric emergency this evening. Continue your medications as previously prescribed .Follow-up with your doctor tomorrow Problem Qualifiers JENIFFER DE JESUS MD May 29, 2017 20:53
== END 2017-05-29 20:55 | disposition home or self-care (01) ==
LOC: ER 20:28
DX: F20.9 Schizophrenia, unspecified (principal); F41.9 Anxiety disorder, unspecified; F31.9 Bipolar disorder, unspecified; Z91.012 Allergy to eggs; Z91.013 Allergy to seafood
CPT/HCPCS: 99281; 99284

== ENCOUNTER 2017-05-31 00:11 | Emergency (ER) | payer MEDICARE ==
[~2017-05-31] VITALS: Ht 169.5 cm; Wt 83.9 kg
[2017-05-31] MEDS ORDERED: ONDANSETRON ODT 4 MG TAB.RAPDIS ONE (00:28)
[2017-05-31] MEDS: ONDANSETRON ODT 4 MG TAB.RAPDIS PO ONE ×2 (00:29→00:30)
--- NOTE | 2017-05-31 00:42 | PHYS DOC ---
Past History Past Medical History: Anxiety, Bipolar, Depression, Schizophrenia, Other Past Surgical History: Other Alcohol Use: None Drug Use: None Adult General Chief Complaint Chief Complaint: NAUSEA/VOMITING/DIARRHEA HPI HPI Patient is a 41 year old M who presents after eating a hamburger out of the trash can. Initially he states that he had nausea without vomiting or diarrhea. However currently he states that he does not have nausea or abdominal pain or any other associated symptoms. He has not received any treatment to resolve his symptoms. He has no other complaints at this time. Review of Systems Review of Systems Constitutional: Denies fever or chills [] Eyes: Denies change in visual acuity, redness, or eye pain [] HENT: Denies nasal congestion or sore throat [] Respiratory: Denies cough or shortness of breath [] Cardiovascular: No additional information not addressed in HPI [] GI: Denies abdominal pain, nausea, vomiting, bloody stools or diarrhea [] : Denies dysuria or hematuria [] Musculoskeletal: Denies back pain or joint pain [] Integument: Denies rash or skin lesions [] Neurologic: Denies headache, focal weakness or sensory changes [] Endocrine: Denies polyuria or polydipsia [] Family History Family History Noncontributory Current Medications Current Medications Current Medications Medications (Trade) Dose Ordered Sig/Rosey Start Time Stop Time Status Last Admin Dose Admin Ondansetron HCl (Zofran Odt) 4 mg 1X ONCE 05/31/17 00:30 05/31/17 00:31 UNV Allergies Allergies Allergies Coded Allergies Type Severity Reaction Last Updated Verified egg Allergy Intermediate 04/14/17 Yes shellfish derived Allergy Intermediate 04/14/17 Yes Physical Exam Physical Exam Constitutional: Well developed, well nourished, no acute distress, non-toxic appearance. [] HENT: Normocephalic, atraumatic, bilateral external ears normal, oropharynx moist, no oral exudates, nose normal. [] Eyes: PERRLA, EOMI, conjunctiva normal, no discharge. [] Neck: Normal range of motion, no tenderness, supple, no stridor. [] Cardiovascular:Heart rate regular rhythm, no murmur [] Lungs & Thorax: Bilateral breath sounds clear to auscultation [] Abdomen: Bowel sounds normal, soft, no tenderness, no masses, no pulsatile masses. [] Skin: Warm, dry, no erythema, no rash. [] Back: No tenderness, no CVA tenderness. [] Extremities: No tenderness, no cyanosis, no clubbing, ROM intact, no edema. [] Neurologic: Alert and oriented X 3, normal motor function, normal sensory function, no focal deficits noted. [] Psychologic: Affect normal, judgement normal, mood normal. [] Current Patient Data Vital Signs Vital Signs Date Time Temp Pulse Resp B/P (MAP) Pulse Ox O2 Delivery O2 Flow Rate FiO2 05/31/17 00:18 98.3 67 20 99 Room Air Radiology/Procedures Radiology/Procedures [] Course & Med Decision Making Course & Med Decision Making Pertinent Labs and Imaging studies reviewed. (See chart for details) Ishmael has no new symptoms at this time. Initially he stated that she had nausea on nursing triage however upon initial evaluation with a physician Ishmael had no complaints. Dragon Disclaimer Dragon Disclaimer This chart was dictated in whole or in part using Voice Recognition software in a busy, high-work load, and often noisy Emergency Department environment. It may contain unintended and wholly unrecognized errors or omissions. Departure Departure: Impression: Primary Impression: Encounter for medical screening examination Disposition: HOME, SELF-CARE Condition: STABLE Referrals: PCP,STEVE (PCP) Patient Instructions: Medical Screening Exam Additional Instructions: Ishmael was seen in the emergency department for nausea. No emergency medical condition was found on history or physical exam. He was advised follow-up with his primary care doctor as needed for further management. He is also advised to return the emergency room if he develops new or worsening symptoms. SHARIFA KIRK MD May 31, 2017 00:42
== END 2017-05-31 00:46 | disposition home or self-care (01) ==
LOC: ER 00:11
DX: Z00.00 Encounter for general adult medical examination without abnormal findings (principal); F20.9 Schizophrenia, unspecified; F31.9 Bipolar disorder, unspecified; F41.9 Anxiety disorder, unspecified; Z91.012 Allergy to eggs; Z91.013 Allergy to seafood
CPT/HCPCS: 99281

== ENCOUNTER 2017-05-31 03:55 | Emergency (ER) | payer MEDICARE ==
[~2017-05-31] VITALS: Ht 169.5 cm; Wt 83.9 kg
[2017-05-31 05:15] VITALS: BP 134/70
--- NOTE | 2017-05-31 05:26 | PHYS DOC ---
Past History Past Medical History: Schizophrenia Past Surgical History: Other Alcohol Use: None Drug Use: None Adult General Chief Complaint Chief Complaint: LOWER EXT PAIN HPI HPI Patient is a [age] year old [sex] who presents with [] Review of Systems Review of Systems Constitutional: Denies fever or chills [] Eyes: Denies change in visual acuity, redness, or eye pain [] HENT: Denies nasal congestion or sore throat [] Respiratory: Denies cough or shortness of breath [] Cardiovascular: No additional information not addressed in HPI [] GI: Denies abdominal pain, nausea, vomiting, bloody stools or diarrhea [] : Denies dysuria or hematuria [] Musculoskeletal: Denies back pain or joint pain [] Integument: Denies rash or skin lesions [] Neurologic: Denies headache, focal weakness or sensory changes [] Endocrine: Denies polyuria or polydipsia [] Allergies Allergies Allergies Coded Allergies Type Severity Reaction Last Updated Verified egg Allergy Intermediate 04/14/17 Yes shellfish derived Allergy Intermediate 04/14/17 Yes Physical Exam Physical Exam Constitutional: Well developed, well nourished, no acute distress, non-toxic appearance. [] HENT: Normocephalic, atraumatic, bilateral external ears normal, oropharynx moist, no oral exudates, nose normal. [] Eyes: PERRLA, EOMI, conjunctiva normal, no discharge. [] Neck: Normal range of motion, no tenderness, supple, no stridor. [] Cardiovascular:Heart rate regular rhythm, no murmur [] Lungs & Thorax: Bilateral breath sounds clear to auscultation [] Abdomen: Bowel sounds normal, soft, no tenderness, no masses, no pulsatile masses. [] Skin: Warm, dry, no erythema, no rash. [] Back: No tenderness, no CVA tenderness. [] Extremities: No tenderness, no cyanosis, no clubbing, ROM intact, no edema. [] Neurologic: Alert and oriented X 3, normal motor function, normal sensory function, no focal deficits noted. [] Psychologic: Affect normal, judgement normal, mood normal. [] EKG EKG [] Radiology/Procedures Radiology/Procedures [] Course & Med Decision Making Course & Med Decision Making Pertinent Labs and Imaging studies reviewed. (See chart for details) [] Dragon Disclaimer Dragon Disclaimer This chart was dictated in whole or in part using Voice Recognition software in a busy, high-work load, and often noisy Emergency Department environment. It may contain unintended and wholly unrecognized errors or omissions. Departure Departure: Impression: Primary Impression: Encounter for medical screening examination Disposition: HOME, SELF-CARE Condition: STABLE Referrals: PCPSTEVE (PCP) Patient Instructions: Medical Screening Exam Additional Instructions: Ishmael was seen in the emergency department for tingling in his legs. No emergency medical condition was found on history or physical exam. His symptoms are resolved without intervention prior to evaluation. He was discharged in stable condition and was advised follow-up with his primary care doctor as soon as possible for further management. SHARIFA KIRK MD May 31, 2017 05:26
== END 2017-05-31 05:32 | disposition home or self-care (01) ==
LOC: ER 03:55
DX: Z00.00 Encounter for general adult medical examination without abnormal findings (principal); F20.9 Schizophrenia, unspecified; Z91.012 Allergy to eggs; Z91.013 Allergy to seafood
CPT/HCPCS: 99281

== ENCOUNTER 2017-05-31 12:24 | Emergency (ER) | payer MEDICARE ==
[~2017-05-31] VITALS: Ht 169.5 cm; Wt 84.1 kg
[2017-05-31 12:31] VITALS: BP 136/71
--- NOTE | 2017-05-31 12:39 | PHYS DOC ---
Past History Past Medical History: Schizophrenia Past Surgical History: Other Alcohol Use: None Drug Use: None Adult General Chief Complaint Chief Complaint: NAUSEA/VOMITING/DIARRHEA HPI HPI Patient is a 41-year-old male who presents to the ED by EMS complaining of " food poisoning". The patient was seen here last night twice with the complaint of nausea and vomiting. He had eaten a hamburger found in the trashcan. The patient tells me that today he was at the library and felt nauseated so he asked the library and to call 911. He's had no vomiting at the library or per EMS. Patient states his nausea was better but then he ate some food that he "found". Patient is homeless and tends to eat food out of trashcans. He states he's been hearing voices and he wants to see his neurologist about this. He feels like the voices he is hearing "are more physical than mental". This is nothing unusual for the patient and he denies needing any assistance with this today. Review of Systems Review of Systems Constitutional: Denies fever or chills [] GI: As in history of present illness Allergies Allergies Allergies Coded Allergies Type Severity Reaction Last Updated Verified egg Allergy Intermediate 04/14/17 Yes shellfish derived Allergy Intermediate 04/14/17 Yes Physical Exam Physical Exam Constitutional: Well developed, well nourished, no acute distress, non-toxic appearance. Alert, mentating at his baseline, warm and dry, ambulatory. HENT: Normocephalic, atraumatic, bilateral external ears normal, nose normal. [ ] Eyes: conjunctiva normal, no discharge. [] Neck: Normal range of motion, no stridor. [] Cardiovascular:Heart rate regular rhythm, no murmur [] Skin: Warm, dry, no erythema, no rash. [] Extremities: No tenderness, no cyanosis, no clubbing, ROM intact, no edema. [] Neurologic: Alert and oriented X 3, normal motor function, normal sensory function, no focal deficits noted. [] EKG EKG [] Radiology/Procedures Radiology/Procedures [] Course & Med Decision Making Course & Med Decision Making Pertinent Labs and Imaging studies reviewed. (See chart for details) 41-year-old homeless man presents by EMS with the continued complaint of "food poisoning" after being seen here twice last night for the same, however the patient has been eating today and on presentation is requesting orange juice, repeatedly requests orange juice to me and nursing staff. We had a talk and I reassured the patient and advised him to stick with clear liquids for the rest of the day. He is very nontoxic and stable for discharge. [] Dragon Disclaimer Dragon Disclaimer This chart was dictated in whole or in part using Voice Recognition software in a busy, high-work load, and often noisy Emergency Department environment. It may contain unintended and wholly unrecognized errors or omissions. Departure Departure: Impression: Primary Impression: Vomiting Disposition: 01 HOME, SELF-CARE Condition: STABLE Referrals: PCP,NO (PCP) Patient Instructions: Food Poisoning, [id number] Additional Instructions: Today, stick with clear liquids such as Sprite, juice, clear soups. As your stomach feels better, you may have small amounts of foods but nothing spicy or greasy. MERCEDEZ NIEVES MD May 31, 2017 12:39
[2017-05-31] MEDS ORDERED: ACETAMINOPHEN 500 MG TABLET PO ONE (13:00)
== END 2017-05-31 12:55 | disposition home or self-care (01) ==
LOC: ER 12:24
DX: R11.2 Nausea with vomiting, unspecified (principal); F20.9 Schizophrenia, unspecified; Z59.0 Homelessness; Z91.012 Allergy to eggs; Z91.013 Allergy to seafood
CPT/HCPCS: 99283

== ENCOUNTER 2017-05-31 19:46 | Emergency (ER) | payer MEDICARE ==
[~2017-05-31] VITALS: Ht 169.5 cm; Wt 86.4 kg
[2017-05-31] MEDS ORDERED: IV NORMAL SALINE 1,000ML 1,000 ML IV SCH (20:33)
[2017-05-31] MEDS ORDERED: PANTOPRAZOLE IV PUSH 40 MG VIAL. IVP ONE (20:45)
[2017-05-31] MEDS ORDERED: ONDANSETRON PF 4 MG/2 ML VIAL. IV ONE (20:45)
[2017-05-31 21:26] LABS: BASO % 1 % (0-3); EOS # 0.1 x10^3/uL (0.0-0.7); EOS % 3 % (0-3); HEMATOCRIT 38.6 % (39.0-53.0); HEMOGLOBIN 12.7 g/dL (13.0-17.5); LYMPH # 1.3 x10^3/uL (1.0-4.8); LYMPH % 31 % (24-48); MEAN CORPUSCULAR HEMOGLOBIN 25 pg (25-35); MEAN CORPUSCULAR HGB CONC 33 g/dL (31-37); MEAN CORPUSCULAR VOLUME 75 fL (79-100); MONO # 0.4 x10^3/uL (0.0-1.1); MONO % 9 % (0-9); NEUT # 2.4 x10^3uL (1.8-7.7); NEUT % 56 % (31-73); PLATELET COUNT 228 x10^3/uL (140-400); RED BLOOD COUNT 5.16 x10^6/uL (4.30-5.70); RED CELL DISTRIBUTION WIDTH 15.7 % (11.5-14.5); WHITE BLOOD COUNT 4.3 x10^3/uL (4.0-11.0)
[2017-05-31 21:33] LABS: ALBUMIN 3.4 g/dL (3.4-5.0); ALBUMIN/GLOBULIN RATIO 0.9 (1.0-1.7); CALCIUM 8.5 mg/dL (8.5-10.1); CREATININE 0.7 mg/dL (0.7-1.3); GFR 151.1; POTASSIUM 3.8 mmol/L (3.5-5.1); TOTAL BILIRUBIN 0.4 mg/dL (0.2-1.0); TOTAL PROTEIN 7.3 g/dL (6.4-8.2)
--- NOTE | 2017-05-31 22:13 | PHYS DOC ---
General Chief Complaint: HEMATEMESIS/VOMITING BLOOD Stated Complaint: COUGHING BLOOD Time Seen by MD: 20:07 Source: patient, old records Exam Limitations: clinical condition Problems: History of Present Illness Initial Comments Pt is 41/M to ED complaining of possible hematemesis. Pt is homeless and has h/o schizophrenia and is well known to this ED as he comes regularly for a variety of complaints. He states that he ate a hamburger from the trash and has food poisoning. States he vomitted once earlier today and had a loose nonbloody stool. Tonight he says he saw some red coloration in his sputum after coughing. No night sweats or unexplained weight loss. Denies abdominal pain, fever/chills/cp/sob or other associated symptoms. He easily trails off his chief complaint and says he's had trouble sleeping and he is requesting orange juice. He's been seen three times already in this ED today: -0042 pt presented c/o nausea which resolved upon arrival and he left without treatment or workup. -0530 pt presented c/o lower extremity pain which resolved upon arrival and left w/o treatment. -1230 pt complained of nausea however claimed it resolved after drinking orange juice. Mani one of our ED RNs saw pt at a local convenience store and spoke with him briefly, this took place approximately two hours prior to pt coming to ED. At the time he had no complaints and was eating some chicken. Pt has numerous ED visits, he was admitted 05/25 requesting inpatient psychiatric treatment for his schizophrenia however after no placement could be found he was discharged to [facility] 05/27. He came again to the ED later on 05/27, twice on 05/28, and once 05/29 each time complaining of hallucinations-- his baseline. Mani pt feels his hallucinations are under control. None currently and he denies other c/o. Timing/Duration: 24 hours Severity: mild Modifying Factors: improves with other Associated Symptoms: nausea/vomiting Allergies: Coded Allergies: egg (Verified Allergy, Intermediate, 04/14/17) shellfish derived (Verified Allergy, Intermediate, 04/14/17) Past Medical History Medical History: other (schizophrenia, noncompliance with meds) Surgical History: noncontributory Social History Smoker: non-smoker Alcohol: none Drugs: none Review of Systems Constitutional: denies chills, denies diaphoresis, denies fever Respiratory: see HPI, denies orthopnea, denies shortness of breath, denies wheezing Cardiovascular: denies chest pain, denies palpitations, denies syncope Gastrointestinal: denies abdominal pain, diarrhea, nausea, vomiting Genitourinary: denies dysuria, denies frequency, denies hematuria Musculoskeletal: denies back pain, denies joint swelling, denies neck pain Psychiatric/Neurological: see HPI Physical Exam General Appearance: no apparent distress Eyes: bilateral eye PERRL, bilateral eye EOMI, bilateral eye other ( conjunctivae injected b/l) Ear, Nose, Throat: hearing grossly normal, normal ENT inspection, normal pharynx Neck: non-tender, supple Respiratory: normal breath sounds, no respiratory distress Cardiovascular: normal peripheral pulses, regular rate, rhythm Gastrointestinal: normal bowel sounds, non tender, soft Back: no CVA tenderness, no vertebral tenderness Extremities: non-tender, normal inspection 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 1L NS IV, zofran given. 2 View Abdomen: nonspecific nonobstructive bowel gas pattern, stool in colon, no acute pathologic finding. Interpreted by Dr Rivas. Hb 12.7, BUN/Cr 21, labs reassuring and not consistent with significant GI bleed 2211: No cough, emesis or BM in ED, no obvious active bleeding and pt won't give urine specimen. Pt drank sprite shortly after arrival, requested OJ but RN felt that would be acidic/irritating. Pt has been sleeping, resting quietly since ED arrival. Will d/c pt home with prn zofran odt, have him follow up with a PCP if symptoms return. Departure Time of Disposition: 22:15 Disposition: 01 HOME, SELF-CARE Diagnosis: Hypovolemia, gastroenteritis by history Condition: GOOD Patient Instructions: Dehydration, Adult, [id number], Viral Gastroenteritis, [id number] Additional Instructions: Aggressive hydration with gatorade, water. Clear liquids, advance to bland diet tomorrow as tolerated. Continue current prescribed meds. A zofran odt start pack was dispensed to you, take 1 every 6 hours as needed for nausea/vomitting. Follow up with a doctor in 2-3 days if not improving. Return to ED with new or changing symptoms. ARIE RIVAS DO May 31, 2017 22:13
[2017-05-31 22:19] VITALS: BP 95/57
[2017-05-31] MEDS ORDERED: ONDANSETRON 4MG ODT 4TABLET STARTPACK. PO ONE (22:30)
--- NOTE | 2017-06-01 09:41 | RAD ---
Two-view abdomen radiographs 05/31/2017 Clinical history: Hematemesis. Supine and erect AP digital radiographs of the abdomen/pelvis were obtained. The lung bases are clear. The cardiac silhouette is mildly enlarged. The abdominal bowel gas pattern is nonobstructive. A moderate amount of stool is seen throughout the colon. No free air is seen. No radiopaque calculus is noted. The osseous structures are grossly intact. Impression: Nonobstructive bowel gas pattern.
== END 2017-05-31 22:33 | disposition home or self-care (01) ==
LOC: ER 19:46
DX: E86.1 Hypovolemia (principal); F20.9 Schizophrenia, unspecified; Z91.14 Patient's other noncompliance with medication regimen; Z59.0 Homelessness; Z91.012 Allergy to eggs; Z91.013 Allergy to seafood
CPT/HCPCS: 99285; C9113; J2405; Q0162; 36415; 74020; 80053; 83690; 85025; 96361; 96374; 96375; G0480; J7030

== ENCOUNTER 2017-06-01 18:22 | Inpatient (IN) | payer MEDICARE ==
[~2017-06-01] VITALS: Ht 169.5 cm; Wt 86.2 kg
[2017-06-01] MEDS ORDERED: QUEtiapine 100 MG TABLET. PO ONE (20:30)
[2017-06-01] MEDS: LORazepam 1 MG TABLET PO ONE ×2 (22:00→22:15)
[2017-06-01] MEDS: HALOPERIDOL 1 MG TABLET PO ONE ×2 (22:00→22:15)
[2017-06-01] MEDS ORDERED: HALOPERIDOL 5 MG TABLET ONE (22:02)
[2017-06-01 23:30] VITALS: BP 122/80
--- NOTE | 2017-06-02 03:59 | PHYS DOC ---
Past History Past Medical History: Anxiety, Bipolar, Schizophrenia Past Surgical History: Other Alcohol Use: None Drug Use: None Adult General Chief Complaint Chief Complaint: HALLUCINATIONS AUDIBLE/VISUAL HPI HPI 41-year-old male with a history of chronic schizophrenia presenting to the emergency department with suicidal ideation and worsening manic thoughts. He denies any pain and denies the desire to hurt anybody. He is here requesting help. His plan is to cut himself. Onset today. Location brain. Duration intermittent. No alleviating factors. He has not been taking his medications at home. Review of systems is negative for chest pain shortness of breath abdominal pain nausea vomiting fevers chills. All other review of systems is negative unless otherwise noted in history of present illness. ED course: 41-year-old male presenting with suicidal ideation and worsening psychosis likely secondary to not taking his medications at home. We had our telemetry psychiatry team evaluate the patient who recommended an acute admission for safety and medication management. We attempted to find a inpatient psychiatric bed for the patient, however unable to obtain a psychiatric bed so the patient was admitted to our hospital for continual searching for acute inpatient psychiatric bed. Patient placed 1 to 1. Oral Seroquel given in the emergency department. I offered the patient Ativan and Haldol when he got mildly agitated in the emergency department however he declined. After feeding him he calmed down. He was then admitted to our hospital for further monitoring and care. Review of Systems Review of Systems SEE ABOVE. Current Medications Current Medications Current Medications Medications (Trade) Dose Ordered Sig/Rosey Start Time Stop Time Status Last Admin Dose Admin Haloperidol (Haldol) 5 mg STK-MED ONCE 06/01/17 22:02 06/01/17 22:03 DC Lorazepam (Ativan) 1 mg 1X ONCE 06/01/17 22:15 06/01/17 22:16 DC Quetiapine Fumarate (SEROquel) 100 mg 1X ONCE 06/01/17 20:30 06/01/17 20:34 DC 06/01/17 20:30 100 MG Allergies Allergies Allergies Coded Allergies Type Severity Reaction Last Updated Verified egg Allergy Intermediate 04/14/17 Yes shellfish derived Allergy Intermediate 04/14/17 Yes Physical Exam Physical Exam SEE ABOVE Constitutional: Well developed, well nourished, no acute distress, non-toxic appearance. [] HENT: Normocephalic, atraumatic, bilateral external ears normal, oropharynx moist, no oral exudates, nose normal. [] Eyes: PERRLA, EOMI, conjunctiva normal, no discharge. [] Neck: Normal range of motion, no tenderness, supple, no stridor. [] Cardiovascular:Heart rate regular rhythm, no murmur [] Lungs & Thorax: Bilateral breath sounds clear to auscultation [] Abdomen: Bowel sounds normal, soft, no tenderness, no masses, no pulsatile masses. [] Skin: Warm, dry, no erythema, no rash. [] Back: No tenderness, no CVA tenderness. [] Extremities: No tenderness, no cyanosis, no clubbing, ROM intact, no edema. [] Neurologic: Alert and oriented X 3, normal motor function, normal sensory function, no focal deficits noted. [] Psychologic: Psych: Appearance: Disheveled M/S: Alert and oriented Mood/Affect: Normal Speech: Pressured Insight: For Hallucinations: Present SI or HI: Positive for suicidal ideation. Current Patient Data Vital Signs Vital Signs Date Time Temp Pulse Resp B/P (MAP) Pulse Ox O2 Delivery O2 Flow Rate FiO2 06/01/17 23:30 97.3 60 20 122/80 (94) 97 Room Air EKG EKG [] Radiology/Procedures Radiology/Procedures [] Course & Med Decision Making Course & Med Decision Making Pertinent Labs and Imaging studies reviewed. (See chart for details) [] Dragon Disclaimer Dragon Disclaimer This chart was dictated in whole or in part using Voice Recognition software in a busy, high-work load, and often noisy Emergency Department environment. It may contain unintended and wholly unrecognized errors or omissions. Departure Departure: Impression: Primary Impression: Hallucination Additional Impressions: Suicidal ideation Psychosis Disposition: 09 ADMITTED INPATIENT Admitting Physician: Zoran Méndez Condition: STABLE Referrals: PCP,NO (PCP) Problem Qualifiers SIERRA BAUTISTA MD Jun 02, 2017 03:59
[2017-06-02 05:18] VITALS: BP 109/63
[2017-06-02 08:16] LABS: BASO % 1 % (0-3); EOS # 0.2 x10^3/uL (0.0-0.7); EOS % 5 % (0-3); HEMATOCRIT 36.7 % (39.0-53.0); HEMOGLOBIN 12.1 g/dL (13.0-17.5); LYMPH # 1.4 x10^3/uL (1.0-4.8); LYMPH % 42 % (24-48); MEAN CORPUSCULAR HEMOGLOBIN 25 pg (25-35); MEAN CORPUSCULAR HGB CONC 33 g/dL (31-37); MEAN CORPUSCULAR VOLUME 75 fL (79-100); MONO # 0.4 x10^3/uL (0.0-1.1); MONO % 11 % (0-9); NEUT # 1.4 x10^3uL (1.8-7.7); NEUT % 41 % (31-73); PLATELET COUNT 208 x10^3/uL (140-400); RED BLOOD COUNT 4.91 x10^6/uL (4.30-5.70); RED CELL DISTRIBUTION WIDTH 15.3 % (11.5-14.5); WHITE BLOOD COUNT 3.3 x10^3/uL (4.0-11.0)
[2017-06-02 08:23] LABS: CALCIUM 8.5 mg/dL (8.5-10.1); CREATININE 0.7 mg/dL (0.7-1.3); GFR 151.1; POTASSIUM 3.8 mmol/L (3.5-5.1)
--- NOTE | 2017-06-11 08:51 | PDOC1 ---
History of Present Illness Reason for Visit: Hallucinations History of Present Illness This is a short stay summary. Pt was admitted overnight through the ER. Per staff (see notes), pt became agitated and left against medical advice. I did not see the patient, nor was I contacted prior to his departure. The local police were called due to his behavior. See notes from staff for further information. Chief Complaint: HALLUCINATIONS AUDIBLE/VISUAL Allergies: Coded Allergies: egg (Verified Allergy, Intermediate, 04/14/17) shellfish derived (Verified Allergy, Intermediate, 04/14/17) Review of Systems Review Of Systems Fourteen system , review of systems has been reviewed. See HPI for pertinent positives and negative responses, other chase all other systems are negative, non pertinent or non contributory Allergies: Coded Allergies: egg (Verified Allergy, Intermediate, 04/14/17) shellfish derived (Verified Allergy, Intermediate, 04/14/17) Medications Current Medications Quetiapine Fumarate (SEROquel) 100 mg 1X ONCE PO Last administered on t 20:30; Start 06/01/17 at 20:30; Stop 06/01/17 at 20:34; Status DC Haloperidol (Haldol) 5 mg 1X ONCE PO ; Start 06/01/17 at 22:15; Stop 06/01/17 at 22:16; Status DC Lorazepam (Ativan) 1 mg 1X ONCE PO ; Start 06/01/17 at 22:15; Stop 06/01/17 at 22:16; Status DC Haloperidol (Haldol) 5 mg STK-MED ONCE .ROUTE ; Start 06/01/17 at 22:02; Stop at 22:03; Status DC Active Scripts Active COURSE Allergies Coded Allergies Type Severity Reaction Last Updated Verified egg Allergy Intermediate 04/14/17 Yes shellfish derived Allergy Intermediate 04/14/17 Yes KYLEIGH DIEHL MD Jun 11, 2017 08:51
--- NOTE | 2017-06-11 08:53 | PDOC3 ---
Discharge Summary Visit Information Date of Admission: Jun 01, 2017 Date of Discharge: Jun 02, 2017 Final Diagnosis Problems Medical Problems: (1) Psychosis Status: Acute (2) Suicidal ideation Status: Acute Problems: Brief Hospital Course Allergies Allergies Coded Allergies Type Severity Reaction Last Updated Verified egg Allergy Intermediate 04/14/17 Yes shellfish derived Allergy Intermediate 04/14/17 Yes Brief Hospital Course was admitted through the ER for recurrent hallucinations. He became agitated several hours later and left [facility] after the local police called. I did not see the patient and was not notified prior to his departure as he left AMA. See staff notes for additional details. Discharge Information Dischare Medications Current Medications Quetiapine Fumarate (SEROquel) 100 mg 1X ONCE PO Last administered on t 20:30; Start 06/01/17 at 20:30; Stop 06/01/17 at 20:34; Status DC Haloperidol (Haldol) 5 mg 1X ONCE PO ; Start 06/01/17 at 22:15; Stop 06/01/17 at 22:16; Status DC Lorazepam (Ativan) 1 mg 1X ONCE PO ; Start 06/01/17 at 22:15; Stop 06/01/17 at 22:16; Status DC Haloperidol (Haldol) 5 mg STK-MED ONCE .ROUTE ; Start 06/01/17 at 22:02; Stop at 22:03; Status DC Active Scripts Active KYLEIGH DIEHL MD Jun 11, 2017 08:53
== END 2017-06-02 08:22 | disposition left against medical advice (07) | DRG 885 ==
LOC: ER 18:22 → 1 SOUTH 22:29
PROVIDERS: ADMIT Family Medicine; ATTEND Family Medicine
DX: F20.9 Schizophrenia, unspecified (principal); R45.851 Suicidal ideations; F29 Unspecified psychosis not due to a substance or known physiological condition; F41.9 Anxiety disorder, unspecified; F31.9 Bipolar disorder, unspecified; Z91.012 Allergy to eggs; Z91.013 Allergy to seafood
CPT/HCPCS: 36415; 74020; 80048; 80053; 83690; 85025; G0480; 99285-25

== ENCOUNTER 2017-06-03 20:20 | Emergency (ER) | payer MEDICARE ==
[~2017-06-03] VITALS: Ht 321.9 cm; Wt 86.4 kg
[2017-06-03 20:20] VITALS: BP 113/65
[2017-06-03] MEDS ORDERED: LIDO:MAALOX 1:1 20 ML SINGLE DOSE PO ONE (20:45)
--- NOTE | 2017-06-03 21:03 | PHYS DOC ---
Past History Past Medical History: Anxiety, Bipolar, Schizophrenia Past Surgical History: Other Alcohol Use: None Drug Use: None Adult General Chief Complaint Chief Complaint: COUGH HPI HPI Patient is a 41 year old male who presents with complaints of coughing up blood and hearing voices. He has been seen at this department extensive amounts of time. He is a known schizophrenic. He is homeless and he has been evicted from the area shelters. He was here 9 times in April and then he was here 20 times in May. he was present for multiple visits on multiple days. Recently he was here 4 times on May 31 and once on June 01. Extensive EVALUATION JUST THIS PAST MONTH. Many times his encounters have escalated and he had to be escorted off by police. He is calm tonight. His complaints just started "tonight." Review of Systems Review of Systems Respiratory: POS cough NO shortness of breath Psych: hearing voices. No harm to himself or others. Current Medications Current Medications Current Medications Medications (Trade) Dose Ordered Sig/Rosey Start Time Stop Time Status Last Admin Dose Admin Multi-Ingredient Mouthwash/Gargle (Gi Cocktail) 20 ml 1X ONCE 06/03/17 20:45 06/03/17 20:45 DC Allergies Allergies Allergies Coded Allergies Type Severity Reaction Last Updated Verified egg Allergy Intermediate 04/14/17 Yes shellfish derived Allergy Intermediate 04/14/17 Yes Physical Exam Physical Exam Constitutional: Well developed, well nourished, no acute distress, non-toxic appearance. HENT: Normocephalic, atraumatic, bilateral external ears normal, oropharynx moist, no oral exudates, nose normal. Eyes: PERRLA, EOMI, conjunctiva normal, no discharge. Neck: Normal range of motion, no tenderness, supple, no stridor. Cardiovascular:Heart rate regular rhythm, no murmur Lungs & Thorax: Bilateral breath sounds clear to auscultation Abdomen: Bowel sounds normal, soft, no tenderness, no masses, no pulsatile masses. Skin: Warm, dry, no erythema, no rash. Back: No tenderness, no CVA tenderness. Extremities: No tenderness, no cyanosis, no clubbing, ROM intact, no edema. Neurologic: Alert and oriented X 3, normal motor function, normal sensory function, no focal deficits noted. Psychologic: calm; responding appropriately. Non violent. Current Patient Data Vital Signs 98.1, R 20; BP 113/65, P 77, sat 99% Course & Med Decision Making Course & Med Decision Making Reviewed extensive medical history and recent evaluation. Patient with very normal and stable vital signs. His PE is unremarkable. Do not feel he needs further attention to his complaints at present. I have spoken with the patient and/or caregivers. I have explained the patient' s condition, diagnosis and treatment plan based on the information available to me at this time. I have answered the patient's and/or caregiver's questions and addressed any concerns. The patient and/or caregivers have as good an understanding of the patient's diagnosis, condition and treatment plan as can be expected at this point. The patient's condition is stable and appropriate for discharge from the emergency department. The patient will pursue further outpatient evaluation with the primary care physician or other designated or consulting physician as outlined in the discharge instructions. The patient and/or caregivers are agreeable to this plan of care and follow-up instructions have been explained in detail. The patient and/or caregivers have received these instructions in written format and have expressed an understanding of the discharge instructions. The patient and/or caregivers are aware that any significant change in condition or worsening of symptoms should prompt an immediate return to this or the closest emergency department or a call to 911. Dragon Disclaimer Dragon Disclaimer This chart was dictated in whole or in part using Voice Recognition software in a busy, high-work load, and often noisy Emergency Department environment. It may contain unintended and wholly unrecognized errors or omissions. Departure Departure: Impression: Primary Impression: Hallucination Additional Impressions: Cough Schizophrenia Disposition: 01 HOME, SELF-CARE Condition: STABLE Referrals: PCP,NO (PCP) Problem Qualifiers Additional Impressions: Schizophrenia Schizophrenia type: paranoid schizophrenia Qualified Codes: F20.0 - Paranoid schizophrenia TAMMY HALLMAN MD Jun 03, 2017 21:03
== END 2017-06-03 20:41 | disposition home or self-care (01) ==
LOC: ER 20:36
DX: R44.0 Auditory hallucinations (principal); R04.2 Hemoptysis; F41.9 Anxiety disorder, unspecified; Z59.0 Homelessness; F20.0 Paranoid schizophrenia; Z91.012 Allergy to eggs; Z91.013 Allergy to seafood
CPT/HCPCS: 99281; 99284

== ENCOUNTER 2017-06-05 21:51 | Emergency (ER) | payer MEDICARE ==
[~2017-06-05] VITALS: Ht 321.9 cm; Wt 86.4 kg
--- NOTE | 2017-06-05 21:56 | PHYS DOC ---
Past History Past Medical History: Anxiety, Bipolar, Schizophrenia Past Surgical History: Other Alcohol Use: None Drug Use: None Adult General HPI HPI Patient is a 41 year old M who presents with schizophrenia hearing voices. Patient is well-known to the emergency room and presents every day for hearing voices. Patient has gone through multiple psych screens and does not meet inpatient criteria. Patient is not suicidal or homicidal. Patient states he's hearing the same voices. Patient has no other complaints. Patient denies any chest pain or shortness of breath. Patient denies any fevers. Review of Systems Review of Systems GEN: Denies fevers, chills, sweats HEENT: Denies blurred vision, sore throat CV: Denies chest pain RESP: Denies shortness of air, cough GI: Denies n/v/d NEURO: Denies confusion, dizziness MSK: Denies weakness, joint pain/swelling PYSH: Hearing voices Allergies Allergies Allergies Coded Allergies Type Severity Reaction Last Updated Verified egg Allergy Intermediate 04/14/17 Yes shellfish derived Allergy Intermediate 04/14/17 Yes Physical Exam Physical Exam GEN.: No apparent distress. Alert and oriented. HEENT: Head is normocephalic, atraumatic NECK: Supple. LUNGS: CTAB. HEART: RRR, S1, S2 present. Peripheral pulses intact ABDOMEN: Soft, nontender. Positive bowel sounds. EXTREMITIES: Without any cyanosis. NEUROLOGIC: Normal speech, normal tone PSYCHIATRIC: Normal affect, normal mood. SKIN: No ulcerations EKG EKG [] Radiology/Procedures Radiology/Procedures [] Course & Med Decision Making Course & Med Decision Making Pertinent Labs and Imaging studies reviewed. (See chart for details) MDM: After reviewing the chart, CC/HPI/PMH, physical exam, I do not believe the patient has emergent medical condition warranting further workup and/or admission at this time. Patient is hearing voices which is his baseline and he is not suicidal or homicidal. Patient is stable for discharge. Additional verbal discharge instructions were provided to the patient and that if symptoms get worse or any new symptoms arise that are worrisome to the patient he is to return to the emergency room immediately [] Dragon Disclaimer Dragon Disclaimer This chart was dictated in whole or in part using Voice Recognition software in a busy, high-work load, and often noisy Emergency Department environment. It may contain unintended and wholly unrecognized errors or omissions. Departure Departure: Impression: Primary Impression: Hallucination Additional Impression: Schizophrenia Disposition: 01 HOME, SELF-CARE Condition: STABLE Referrals: PCP,STEVE (PCP) Patient Instructions: Schizophrenia Additional Instructions: Please follow-up with your family physician in the next one to 2 days and return if symptoms increase Problem Qualifiers PAGE GUERRERO DO Jun 05, 2017 21:56
[2017-06-05 22:09] VITALS: BP 105/71
== END 2017-06-05 22:03 | disposition home or self-care (01) ==
LOC: ER 21:51
DX: F20.9 Schizophrenia, unspecified (principal); F41.9 Anxiety disorder, unspecified; F31.9 Bipolar disorder, unspecified; Z91.012 Allergy to eggs; Z91.013 Allergy to seafood
CPT/HCPCS: 99284

== ENCOUNTER 2017-06-07 00:29 | Emergency (ER) | payer MEDICARE ==
[~2017-06-07] VITALS: Ht 321.9 cm; Wt 86.4 kg
--- NOTE | 2017-06-07 01:04 | ED.ADGEN ---
Past History Past Medical History: Schizophrenia Past Surgical History: Other Alcohol Use: None Drug Use: None Adult General Chief Complaint Chief Complaint Voices HPI HPI Patient is a 41-year-old AA male well-known to this emergency department who presents with auditory hallucination. Patient reports hearing voices telling him to harm himself. Patient has long-standing history of nephronia and has not been on his medications for several years due to concerns of side effects. Patient states the voices are louder and are more demanding that they usually are and have been difficult for the patient to ignore. Denies thoughts of harming self or plans to harming himself. Patient has previously taking Depakote Zydis for these symptoms which has helped in the past. Patient denied drugs or alcohol. Review of Systems Review of Systems ROS as per HPI. Current Medications Current Medications Current Medications Medications (Trade) Dose Ordered Sig/Roesy Start Time Stop Time Status Last Admin Dose Admin Divalproex Sodium (Depakote) 125 mg 1X ONCE 06/07/17 01:00 06/07/17 01:01 UNV Olanzapine (ZyPREXA ZYDIS) 5 mg 1X ONCE 06/07/17 01:00 06/07/17 01:01 UNV Allergies Allergies Allergies Coded Allergies Type Severity Reaction Last Updated Verified egg Allergy Intermediate 04/14/17 Yes shellfish derived Allergy Intermediate 04/14/17 Yes Physical Exam Physical Exam Constitutional: Well developed, well nourished, no acute distress, non-toxic appearance. [] HENT: Normocephalic, atraumatic, bilateral external ears normal, oropharynx moist, no oral exudates, nose normal. [] Eyes: PERRLA, EOMI, conjunctiva normal, no discharge. [] Neck: Normal range of motion, no tenderness, supple, no stridor. [] Cardiovascular:Heart rate regular rhythm, no murmur [] Back: No tenderness, no CVA tenderness. [] Extremities: No tenderness, no cyanosis, no clubbing, ROM intact, no edema. [] Neurologic: Alert and oriented X 2, normal motor function, normal sensory function, no focal deficits noted. [] Psychologic: Affect pleasant, reports auditory hallucinations. Denies SI/HI. [] EKG EKG [] Radiology/Procedures Radiology/Procedures [] Course & Med Decision Making Course & Med Decision Making Pertinent Labs and Imaging studies reviewed. (See chart for details) [Patient given dose of Zydis and Depakote ED. Will prescribe Depakote with structures to follow-up with [facility] outpatient crisis. Patient states he feels better and is agreeable to discharge plan.] Final Impression Final Impression [1. Auditory Hallucinations] Problems: Dragon Disclaimer Dragon Disclaimer This electronic medical record was generated, in whole or in part, using a voice recognition dictation system. DEVIKA MUÑIZ DO Jun 07, 2017 01:04
[2017-06-07] MEDS ORDERED: DIVALPROEX SODIUM 125 MG TABLET.DR. PO ONE (01:15)
[2017-06-07 02:00] VITALS: BP 131/79
== END 2017-06-07 06:11 | disposition home or self-care (01) ==
LOC: ER 00:29
DX: R22.0 Localized swelling, mass and lump, head (principal); F20.9 Schizophrenia, unspecified; Z91.012 Allergy to eggs; Z91.013 Allergy to seafood
CPT/HCPCS: 99284

== ENCOUNTER 2017-06-08 20:33 | Emergency (ER) | payer MEDICARE ==
[~2017-06-08] VITALS: Ht 170.2 cm; Wt 86.2 kg
--- NOTE | 2017-06-08 20:58 | PHYS DOC ---
Past History Past Medical History: Bipolar, Schizophrenia Past Surgical History: Other Alcohol Use: None Drug Use: None Adult General Chief Complaint Chief Complaint: HALLUCINATIONS AUDIBLE/VISUAL HPI HPI Patient is a 41 year old -[place] male who presents with a fall. He states he tripped earlier today and fell and hit his head. He denies headache, he denies losing consciousness. He denies any leading, he denies neck pain or confusion. He wants have a CAT scan of his head performed. He states his hearing voices but he denies suicidal or homicidal ideations. Review of Systems Review of Systems Constitutional: Denies fever or chills [] Eyes: Denies change in visual acuity, redness, or eye pain [] HENT: Denies nasal congestion or sore throat [] Respiratory: Denies cough or shortness of breath [] Cardiovascular: No additional information not addressed in HPI [] GI: Denies abdominal pain, nausea, vomiting, bloody stools or diarrhea [] : Denies dysuria or hematuria [] Musculoskeletal: Denies back pain or joint pain [] Integument: Denies rash or skin lesions [] Neurologic: Denies headache, focal weakness or sensory changes [] Endocrine: Denies polyuria or polydipsia [] Allergies Allergies Allergies Coded Allergies Type Severity Reaction Last Updated Verified egg Allergy Intermediate 04/14/17 Yes shellfish derived Allergy Intermediate 04/14/17 Yes Physical Exam Physical Exam Constitutional: Well developed, well nourished, no acute distress, non-toxic appearance. [] HENT: Normocephalic, atraumatic, bilateral external ears normal, oropharynx moist, no oral exudates, nose normal. [] Eyes: PERRLA, EOMI, conjunctiva normal, no discharge. [] Neck: Normal range of motion, no tenderness, supple, no stridor. [] Cardiovascular:Heart rate regular rhythm, no murmur [] Lungs & Thorax: Bilateral breath sounds clear to auscultation [] Abdomen: Bowel sounds normal, soft, no tenderness, no masses, no pulsatile masses. [] Skin: Warm, dry, no erythema, no rash. [] Back: No tenderness, no CVA tenderness. [] Extremities: No tenderness, no cyanosis, no clubbing, ROM intact, no edema. [] Neurologic: Alert and oriented X 3, normal motor function, normal sensory function, no focal deficits noted. [] Psychologic: Per his baseline EKG EKG [] Radiology/Procedures Radiology/Procedures [] Impressions: Fall Schizophrenia Course & Med Decision Making Course & Med Decision Making Pertinent Labs and Imaging studies reviewed. (See chart for details) He has no injuries I palpated his scalp and neck. He is not homicidal suicidal. His vitals within normal limits. He is being discharged with return precautions. I offered him Zyprexa and he states he does want any medicines for his voices. Dragon Disclaimer Dragon Disclaimer This chart was dictated in whole or in part using Voice Recognition software in a busy, high-work load, and often noisy Emergency Department environment. It may contain unintended and wholly unrecognized errors or omissions. Departure Departure: Impression: Primary Impression: Fall Disposition: 01 HOME, SELF-CARE Condition: STABLE Referrals: PCP,NO (PCP) Patient Instructions: Fall Prevention and Home Safety Additional Instructions: You were seen today for your fall. You do not have any injuries to her head or neck, and do not need a CAT scan or xrays at this time. Your being discharged please follow-up with primary care physician. Return ER if you have worsening pain is severe headache, neck pain or other concerns. Problem Qualifiers Primary Impression: Fall Encounter type: initial encounter Qualified Codes: W19.XXXA - Unspecified fall, initial encounter NANCY SALGADO MD Jun 08, 2017 20:58
[2017-06-08 21:15] VITALS: BP 126/72
== END 2017-06-08 21:15 | disposition home or self-care (01) ==
LOC: ER 20:33
DX: Z04.3 Encounter for examination and observation following other accident (principal); F20.9 Schizophrenia, unspecified; F31.9 Bipolar disorder, unspecified; Z91.012 Allergy to eggs; Z91.013 Allergy to seafood; W01.198A Fall on same level from slipping, tripping and stumbling with subsequent striking against other object, initial encounter; Y93.89 Activity, other specified; Y99.8 Other external cause status; Y92.89 Other specified places as the place of occurrence of the external cause
CPT/HCPCS: 99284

== ENCOUNTER 2017-08-28 01:56 | Emergency (ER) | payer MEDICARE ==
[~2017-08-28] VITALS: Ht 170.2 cm; Wt 86.4 kg
[2017-08-28 02:10] VITALS: BP 111/68
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
--- NOTE | 2017-08-28 07:09 | RAD ---
Indication: Right shoulder pain. Time of exam 0 to 52 hours. 3 views of the right shoulder were obtained. Glenohumeral alignment is normal. The distal clavicle projects slightly cephalad in relation to the acromion. Minimal AC separation cannot be excluded however the acuity is indeterminate. Acromiohumeral space is normal. No fractures are seen. Impression: Questionable minimal AC separation. Correlation to pain at this location is recommended. No acute bony normality is seen.
== END 2017-08-28 03:15 | disposition home or self-care (01) ==
LOC: ER 01:56
DX: M25.511 Pain in right shoulder (principal); F31.9 Bipolar disorder, unspecified; F20.9 Schizophrenia, unspecified; Z59.0 Homelessness; Z91.012 Allergy to eggs; Z91.013 Allergy to seafood
CPT/HCPCS: 73030; 99284

== ENCOUNTER 2017-08-30 03:12 | Emergency (ER) | payer MEDICARE ==
[~2017-08-30] VITALS: Ht 170.2 cm; Wt 86.4 kg
[2017-08-30 03:17] VITALS: BP 117/69
--- NOTE | 2017-08-30 04:02 | PHYS DOC ---
General Chief Complaint: HALLUCINATIONS AUDIBLE/VISUAL Stated Complaint: HEARING VOICES Time Seen by MD: 03:15 Source: patient Exam Limitations: clinical condition Problems: History of Present Illness Initial Comments Patient is a homeless 41-year-old male with history of bipolar disorder and schizophrenia who comes to the emergency department complaining of suicidal ideation. Patient is well known to this facility, he keeps repeating that the voices are telling him to kill himself. He does not report any plan or attempt, history is difficult because the patient is tangential and hard to keep on topic. No report of any situational condition which may contribute to these feelings and the patient denies any physical discomfort. ED vital signs are stable, medical clearance for psychiatric evaluation initiated. Timing/Duration: unsure Severity: severe Modifying Factors: improves with other Associated Symptoms: other Allergies: Coded Allergies: egg (Verified Allergy, Intermediate, 04/14/17) shellfish derived (Verified Allergy, Intermediate, 04/14/17) Past Medical History Medical History: other (bipolar disorder, schizophrenia, noncompliance) Surgical History: noncontributory Social History Smoker: non-smoker Alcohol: none Drugs: other (denies) Review of Systems Constitutional: denies chills, denies fever Respiratory: denies cough, denies shortness of breath Cardiovascular: denies chest pain, denies syncope Gastrointestinal: denies abdominal pain, denies vomiting Musculoskeletal: denies back pain, denies neck pain Psychiatric/Neurological: see HPI Physical Exam General Appearance: no apparent distress Eyes: bilateral eye normal inspection, bilateral eye PERRL, bilateral eye EOMI Ear, Nose, Throat: hearing grossly normal, normal ENT inspection Neck: non-tender, supple Respiratory: normal breath sounds, no respiratory distress Cardiovascular: normal peripheral pulses, regular rate, rhythm Gastrointestinal: non tender, soft Back: no CVA tenderness, no vertebral tenderness Extremities: normal range of motion, normal inspection, pelvis stable Neurologic/Psychiatric: cancer program director II-XII nml as tested, no motor/sensory deficits, alert (pressured speech, poor eye contact, tangential thoughts and flight of ideas, positive visual and audio hallucinations with suicidal ideation), oriented x 3 Orders, Labs, Meds 0401: Almost immediately upon being placed in the exam room patient is observed to fall asleep and is resting comfortably. EKG: Sinus bradycardia 55 bpm, leftward axis no ST segment elevation interpreted by me. 0530: CBC and tele-psych evaluation are pending other labs are negative. Patient has been sleeping without any agitation or distress since arrival. Patient will be signed out to incoming emergency room physician Dr. Gordon at 0600 shift change. See his documentation for further results and ultimate patient disposition. IMPRESSION: SI bipolar schizophrenic homeless ARIE SHEIKH Aug 30, 2017 04:02
--- NOTE | 2017-08-30 04:06 | EKG ---
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
[2017-08-30 04:52] LABS: BASO % 1 % (0-3); EOS # 0.1 x10^3/uL (0.0-0.7); EOS % 3 % (0-3); HEMATOCRIT 40.6 % (39.0-53.0); HEMOGLOBIN 13.2 g/dL (13.0-17.5); LYMPH # 1.3 x10^3/uL (1.0-4.8); LYMPH % 32 % (24-48); MEAN CORPUSCULAR HEMOGLOBIN 25 pg (25-35); MEAN CORPUSCULAR HGB CONC 33 g/dL (31-37); MEAN CORPUSCULAR VOLUME 75 fL (79-100); MONO # 0.5 x10^3/uL (0.0-1.1); MONO % 13 % (0-9); NEUT # 2.1 x10^3uL (1.8-7.7); NEUT % 52 % (31-73); PLATELET COUNT 265 x10^3/uL (140-400); RED CELL DISTRIBUTION WIDTH 14.4 % (11.5-14.5); WHITE BLOOD COUNT 4.1 x10^3/uL (4.0-11.0)
[2017-08-30 04:54] LABS: BILIRUBIN,URINE NEG (NEG); CLARITY,URINE CLEAR; COLOR,URINE YELLOW; GLUCOSE,URINE NEG (NEG)
[2017-08-30 04:55] LABS: BACTERIA,URINE FEW /HPF (0-FEW); BARBITURATES NEG (NEG); BENZODIAZEPINES NEG (NEG); CANNABINOIDS NEG (NEG); COCAINE NEG (NEG); METHADONE NEG (NEG); NITRITE,URINE NEG (NEG); OPIATES NEG (NEG); PHENCYCLIDINE NEG (NEG); RBC,URINE 0 /HPF (0-2); SQUAMOUS EPITHELIAL CELL,UR FEW /LPF; UROBILINOGEN,URINE 0.2 mg/dL (0.2 mg/dL); WBC,URINE 0 /HPF (0-4)
[2017-08-30 05:00] LABS: ALBUMIN 3.1 g/dL (3.4-5.0); CALCIUM 8.6 mg/dL (8.5-10.1); CREATININE 0.6 mg/dL (0.7-1.3); DIRECT BILIRUBIN 0.1 mg/dL (0.0-0.2); GFR 180.6; POTASSIUM 4.2 mmol/L (3.5-5.1); TOTAL BILIRUBIN 0.3 mg/dL (0.2-1.0); TOTAL PROTEIN 7.9 g/dL (6.4-8.2)
[2017-08-30 05:01] LABS: AMPHETAMINE/METHAMPHETAMINE NEG (NEG)
[2017-08-30 05:02] LABS: ACETAMIN < 2.0 mcg/mL (10-30); SALIC 0.5 mg/dL (2.8-20.0)
[2017-08-30 05:03] LABS: ETHANOL < 10 mg/dL (0-10)
[2017-08-30] MEDS ORDERED: OLANZapine 2.5 MG TABLET PO ONE (08:30)
== END 2017-08-30 13:42 ==
LOC: ER 03:12
DX: R45.851 Suicidal ideations (principal); F20.9 Schizophrenia, unspecified; F31.9 Bipolar disorder, unspecified; Z59.0 Homelessness; Z91.14 Patient's other noncompliance with medication regimen; Z91.012 Allergy to eggs; Z91.013 Allergy to seafood
CPT/HCPCS: 36415; 80048; 80076; 80307; 81001; 85025; 93005; 99285; G0480; G0479

== ENCOUNTER 2017-09-03 22:17 | Emergency (ER) | payer MEDICARE ==
[~2017-09-03] VITALS: Ht 170.2 cm; Wt 86.4 kg
[2017-09-03 23:50] VITALS: BP 103/66
[2017-09-04 00:24] LABS: BASO % 1 % (0-3); EOS # 0.1 x10^3/uL (0.0-0.7); EOS % 3 % (0-3); HEMATOCRIT 40.4 % (39.0-53.0); HEMOGLOBIN 13.1 g/dL (13.0-17.5); LYMPH # 1.7 x10^3/uL (1.0-4.8); LYMPH % 34 % (24-48); MEAN CORPUSCULAR HEMOGLOBIN 24 pg (25-35); MEAN CORPUSCULAR HGB CONC 33 g/dL (31-37); MEAN CORPUSCULAR VOLUME 75 fL (79-100); MONO # 0.5 x10^3/uL (0.0-1.1); MONO % 9 % (0-9); NEUT # 2.7 x10^3uL (1.8-7.7); NEUT % 53 % (31-73); PLATELET COUNT 285 x10^3/uL (140-400); RED BLOOD COUNT 5.41 x10^6/uL (4.30-5.70); RED CELL DISTRIBUTION WIDTH 14.6 % (11.5-14.5)
[2017-09-04 00:37] LABS: ACETAMIN < 2.0 mcg/mL (10-30); ETHANOL < 10 mg/dL (0-10); SALIC 1.1 mg/dL (2.8-20.0)
[2017-09-04 00:38] LABS: ALBUMIN 3.2 g/dL (3.4-5.0); ALBUMIN/GLOBULIN RATIO 0.6 (1.0-1.7); CALCIUM 8.9 mg/dL (8.5-10.1); CREATININE 0.7 mg/dL (0.7-1.3); GFR 151.1; POTASSIUM 3.8 mmol/L (3.5-5.1); TOTAL BILIRUBIN 0.1 mg/dL (0.2-1.0); TOTAL PROTEIN 8.2 g/dL (6.4-8.2)
[2017-09-04 00:49] LABS: BARBITURATES NEG (NEG); BENZODIAZEPINES NEG (NEG); CANNABINOIDS NEG (NEG); COCAINE NEG (NEG); METHADONE NEG (NEG); OPIATES NEG (NEG); PHENCYCLIDINE NEG (NEG)
[2017-09-04 00:50] LABS: AMPHETAMINE/METHAMPHETAMINE NEG (NEG)
--- NOTE | 2017-09-04 03:15 | PHYS DOC ---
Past History Past Medical History: Schizophrenia Past Surgical History: Other Alcohol Use: None Drug Use: None Adult General Chief Complaint Chief Complaint: PSYCH EVALUATION HPI HPI Patient is a 41 year old male who presents with hallucinations. The patient states he hears voices telling him to punch a tree to hurt himself. He denies recent alcohol or drug use. States he takes zyprexa for schizophrenia. Denies suicidal or homicidal ideation. Patient is homeless. Recently admitted at [facility] for psych. He is well known to this emergency department. Review of Systems Review of Systems Constitutional: Denies fever or chills HENT: Denies nasal congestion or sore throat Respiratory: Denies cough or shortness of breath Cardiovascular: Denies chest pain GI: Denies abdominal pain, nausea, vomiting, or diarrhea Musculoskeletal: Denies back pain or joint pain Integument: Denies rash Neurologic: Denies headache, focal weakness or sensory changes Psychiatric: Reports hallucinations All other systems were reviewed and found to be within normal limits, except as documented in this note. Allergies Allergies Allergies Coded Allergies Type Severity Reaction Last Updated Verified egg Allergy Intermediate 04/14/17 Yes shellfish derived Allergy Intermediate 04/14/17 Yes Physical Exam Physical Exam Constitutional: Well developed, well nourished, no acute distress, non-toxic appearance. HENT: Normocephalic, atraumatic, bilateral external ears normal, oropharynx moist, nose normal. Eyes: PERRLA, EOMI, conjunctiva normal, no discharge. Neck: supple, no stridor. no meningismus Cardiovascular: RRR, no murmurs, no edema. Lungs & Thorax: LCTAB, no wheezing, no respiratory distress. Abdomen: soft, nontender, nondistended. Skin: Warm, dry, no erythema, no rash. Back: No tenderness. Extremities: No tenderness, no edema. Neurologic: Alert and oriented X 3, normal motor & sensory function, no focal deficits noted. Psychologic: Affect normal, judgement normal, mood normal. paranoid. Current Patient Data Vital Signs Vital Signs Date Time Temp Pulse Resp B/P (MAP) Pulse Ox O2 Delivery O2 Flow Rate FiO2 09/03/17 23:50 97.7 67 20 99 Room Air Lab Results Laboratory Tests Test 09/04/17 00:02 White Blood Count 5.0 x10^3/uL (4.0-11.0) Red Blood Count 5.41 x10^6/uL (4.30-5.70) Hemoglobin 13.1 g/dL (13.0-17.5) Hematocrit 40.4 % (39.0-53.0) Mean Corpuscular Volume 75 fL (79-100) L Mean Corpuscular Hemoglobin 24 pg (25-35) L Mean Corpuscular Hemoglobin Concent 33 g/dL (31-37) Red Cell Distribution Width 14.6 % (11.5-14.5) H Platelet Count 285 x10^3/uL (140-400) Neutrophils (%) (Auto) 53 % (31-73) Lymphocytes (%) (Auto) 34 % (24-48) Monocytes (%) (Auto) 9 % (0-9) Eosinophils (%) (Auto) 3 % (0-3) Basophils (%) (Auto) 1 % (0-3) Neutrophils # (Auto) 2.7 x10^3uL (1.8-7.7) Lymphocytes # (Auto) 1.7 x10^3/uL (1.0-4.8) Monocytes # (Auto) 0.5 x10^3/uL (0.0-1.1) Eosinophils # (Auto) 0.1 x10^3/uL (0.0-0.7) Basophils # (Auto) 0.0 x10^3/uL (0.0-0.2) Sodium Level 141 mmol/L (136-145) Potassium Level 3.8 mmol/L (3.5-5.1) Chloride Level 104 mmol/L (98-107) Carbon Dioxide Level 30 mmol/L (21-32) Anion Gap 7 (6-14) Blood Urea Nitrogen 10 mg/dL (8-26) Creatinine 0.7 mg/dL (0.7-1.3) Estimated GFR (Cockcroft-Gault) 151.1 BUN/Creatinine Ratio 14 (6-20) Glucose Level 94 mg/dL (70-99) Calcium Level 8.9 mg/dL (8.5-10.1) Total Bilirubin 0.1 mg/dL (0.2-1.0) L Aspartate Amino Transferase (AST) 22 U/L (15-37) Alanine Aminotransferase (ALT) 36 U/L (16-63) Alkaline Phosphatase 96 U/L (46-116) Total Protein 8.2 g/dL (6.4-8.2) Albumin 3.2 g/dL (3.4-5.0) L Albumin/Globulin Ratio 0.6 (1.0-1.7) L Salicylates Level 1.1 mg/dL (2.8-20.0) L Salicylate Last Dose Date 09/03/2017 Salicylate Last Dose Time 235 Urine Opiates Screen Neg (NEG) Urine Methadone Screen Neg (NEG) Acetaminophen Level < 2.0 mcg/mL (10-30) L Acetaminophen Last Dose Date 09/03/2017 Acetaminophen Last Dose Time 2353 Urine Barbiturates Neg (NEG) Urine Phencyclidine Screen Neg (NEG) Urine Amphetamine/Methamphetamine Neg (NEG) Urine Benzodiazepines Screen Neg (NEG) Urine Cocaine Screen Neg (NEG) Urine Cannabinoids Screen Neg (NEG) Ethyl Alcohol Level < 10 mg/dL (0-10) Urine Ethyl Alcohol Neg (NEG) EKG EKG [] Radiology/Procedures Radiology/Procedures [] Course & Med Decision Making Course & Med Decision Making Pertinent Labs and Imaging studies reviewed. (See chart for details) The patient presents with hallucinations & requests psychiatric evaluation. Obtained screening labs as above. Obtained tele psych screening through the [facility]. They recommended no need for inpatient admission but recommend follow up as already scheduled at time of discharge from [place]. Discussed recommendations with patient. He states he has nowhere to go as he is homeless. States he has been kicked out of long term & told that he may not return. As it is below freezing tonight, security will allow patient to stay in the lobby until morning. He is discharged in stable condition. [] Dragon Disclaimer Dragon Disclaimer This electronic medical record was generated, in whole or in part, using a voice recognition dictation system. Departure Departure: Impression: Primary Impression: Hallucination Disposition: 01 HOME, SELF-CARE Condition: STABLE Referrals: PCP,NO (PCP) Patient Instructions: Hallucinations and Delusions Additional Instructions: You were seen in the emergency department today. You underwent psychiatric screening. They did not recommend admission at this time. ZA CHACON MD Sep 04, 2017 03:15
== END 2017-09-04 03:20 | disposition home or self-care (01) ==
LOC: ER 22:17
DX: R44.0 Auditory hallucinations (principal); F20.9 Schizophrenia, unspecified; Z59.0 Homelessness; Z91.012 Allergy to eggs; Z91.013 Allergy to seafood
CPT/HCPCS: 36415; 80053; 80307; 85025; 99284; G0480; G0479

== ENCOUNTER 2017-09-06 00:48 | Emergency (ER) | payer MEDICARE ==
[~2017-09-06] VITALS: Ht 170.2 cm; Wt 86.4 kg
[2017-09-06 00:48] VITALS: BP 117/70
--- NOTE | 2017-09-06 01:11 | PHYS DOC ---
Past History Past Medical History: Schizophrenia Past Surgical History: Other Alcohol Use: None Drug Use: None Adult General Chief Complaint Chief Complaint: COLD EXPOSURE HPI HPI Patient is a 41 year old M who presents with cold hands. Patient is a homeless individual who has known schizophrenia and is always hearing voices presents with increased cold to his hands and nosebleeds. Patient is currently not having a nosebleed. Outside temperatures have been in the teens. Patient states he is able to move his hands without any problems. Patient denies any chest pain or shortness of breath. Patient is no other complaints. Review of Systems Review of Systems GEN: Denies fevers, chills, sweats HEENT: Denies blurred vision, sore throat CV: Denies chest pain RESP: Denies shortness of air, cough GI: Denies n/v/d NEURO: Denies confusion, dizziness MSK: Hand pain All other systems were reviewed and found to be within normal limits, except as documented in this note. Allergies Allergies Allergies Coded Allergies Type Severity Reaction Last Updated Verified egg Allergy Intermediate 04/14/17 Yes shellfish derived Allergy Intermediate 04/14/17 Yes Physical Exam Physical Exam GEN.: No apparent distress. Alert and oriented. HEENT: Head is normocephalic, atraumatic, no active bleeding out of either nostril, turbinates are not swollen or erythematous, TMs are clear bilaterally NECK: Supple. LUNGS: CTAB. HEART: RRR, S1, S2 present. Peripheral pulses intact ABDOMEN: Soft, nontender. Positive bowel sounds. EXTREMITIES: Without any cyanosis, capillary refill in fingers bilaterally less than 2 seconds, good radial pulses bilaterally,no significant signs of frostbite NEUROLOGIC: Normal speech, normal tone PSYCHIATRIC: Does not make eye contact, hearing voices which is his baseline SKIN: No ulcerations EKG EKG [] Radiology/Procedures Radiology/Procedures [] Course & Med Decision Making Course & Med Decision Making Pertinent Labs and Imaging studies reviewed. (See chart for details) MDM: After reviewing the chart, CC/HPI/PMH, physical exam, I do not believe the patient has emergent medical condition warranting further workup and/or admission at this time. I do not believe the patient has significant frostbite to the hands but I did instruct the patient on how to rewarm his hands and prevent frostbite. Patient does not have an active nosebleed requiring intervention at this time. Patient is a known schizophrenic and has baseline hears voices however he is not suicidal or homicidal. Patient is stable for discharge. Additional verbal discharge instructions were provided to the patient and that if symptoms get worse or any new symptoms arise that are worrisome to the patient he is to return to the emergency room immediately [] Dragon Disclaimer Dragon Disclaimer This electronic medical record was generated, in whole or in part, using a voice recognition dictation system. Departure Departure: Impression: Primary Impression: Cold exposure Additional Impression: Schizophrenia Disposition: 01 HOME, SELF-CARE Condition: STABLE Referrals: PCP,NO (PCP) Patient Instructions: Schizophrenia Additional Instructions: Please follow-up with your family physician in the next one to 2 days and return if symptoms increase Problem Qualifiers PAGE GUERRERO DO Sep 06, 2017 01:11
== END 2017-09-06 01:30 | disposition home or self-care (01) ==
LOC: ER 00:48
DX: T69.9XXA Effect of reduced temperature, unspecified, initial encounter (principal); F20.9 Schizophrenia, unspecified; Z59.0 Homelessness; Z91.012 Allergy to eggs; Z91.013 Allergy to seafood
CPT/HCPCS: 99281

== ENCOUNTER 2017-09-06 12:44 | Emergency (ER) | payer MEDICARE ==
[~2017-09-06] VITALS: Ht 170.2 cm; Wt 86.4 kg
[2017-09-06 12:51] VITALS: BP 117/70
--- NOTE | 2017-09-06 13:28 | PHYS DOC ---
Past History Past Medical History: Schizophrenia Past Surgical History: Other Alcohol Use: None Drug Use: None Adult General Chief Complaint Chief Complaint: multiple HPI HPI Patient is a 41-year-old male well known to the emergency department with a history of mental illness and homelessness. Presents ambulatory today when the temperature is 10, stating he is cold. Patient states the voices have been bothering him. Zyprexa sometimes helps, but he cannot afford it. He was recently hospitalized at [place] for mental health issues. He states he does have a follow-up appointment at the [facility] on September 09, and has one in about 2 weeks from [place]. Patient states he doesn't have anywhere to go to keep warm. He could go to the library but it closes at 5. He refuses to go to homeless shelters because he does not like the shower policies. He would consider going to a different homeless intermediate "in [facility]" but he doesn't know how he would get there. Review of Systems Review of Systems Constitutional: Denies fever or chills although he is cold Respiratory: He felt short of breath while ago when he was out in the cold air Cardiovascular: Denies chest pain Allergies Allergies Allergies Coded Allergies Type Severity Reaction Last Updated Verified egg Allergy Intermediate 04/14/17 Yes shellfish derived Allergy Intermediate 04/14/17 Yes Physical Exam Physical Exam Constitutional: Well developed, well nourished, no acute distress, non-toxic appearance. Alert, ambulatory, mentating normally. He was able to get himself and dressed and curled up on the cart under some warm blankets without assistance. HENT: Normocephalic, atraumatic, bilateral external ears normal, nose normal. [] Eyes: conjunctiva normal, no discharge. [] Neck: Normal range of motion, no stridor. [] Cardiovascular:Heart rate regular rhythm, no murmur [] Lungs & Thorax: Bilateral breath sounds clear to auscultation [] Skin: Warm, dry, no erythema, no rash. [] Extremities: No tenderness, no cyanosis, no clubbing, ROM intact, no edema. [] Neurologic: Alert and oriented X 3, normal motor function, no focal deficits noted. [] Psychologic: Affect normal, mood normal. Patient is not actively having apparent hallucinations. Patient makes good eye contact. He has reasonable judgment as far as stating his reasons for not going to the homeless intermediate. Patient appears to be capable of making his own decisions at this time. EKG EKG [] Radiology/Procedures Radiology/Procedures [] Course & Med Decision Making Course & Med Decision Making Pertinent Labs and Imaging studies reviewed. (See chart for details) 41-year-old male known to the ED with mental health and homelessness issues, presents ambulatory. Reportedly, he was recently hospitalized at [place]. Patient was seen here last night shortly after midnight for the same complaint of cold exposure. He was here for about an hour and discharged. Reportedly, he went to [facility] in the meantime and has been seen and discharged. He ambulated back here again stating that he was cold, he has nowhere to go, and the voices are bothering him. I visited with the patient. I understand that he has chronic schizophrenia and chronic auditory hallucinations. He is not able to be compliant with medications that would potentially help his symptoms. I talked to him about going to a homeless intermediate. The patient states that he is not comfortable going to homeless shelters because all the men have to shower together and "he's not comfortable showering around a bunch of old men". The patient is aware of his available resources but is choosing to not use them at this time. I talked to him about how he does have follow-up in place for his mental health issues, and I don't know that there is anything more medically we could do for him at this time, and he agrees with that. We talked about his available resources and he might choose to go to the library to keep warm until it closes today. The patient was discharged and ambulated out of the emergency department in a stable condition. [] Dragon Disclaimer Dragon Disclaimer This electronic medical record was generated, in whole or in part, using a voice recognition dictation system. Departure Departure: Impression: Primary Impression: Chronic mental illness Additional Impression: Homelessness Disposition: 01 HOME, SELF-CARE Condition: STABLE Referrals: PCP,NO (PCP) Additional Instructions: As we discussed, I offered to try to get you in to a homeless intermediate, but you are not comfortable going there because of the shower policy. You do have appointments coming up after your recent stay at [place]. We discussed the option of going to the library today until it closes. I urge you to reconsider going to a homeless intermediate when the temperatures are freezing. Problem Qualifiers MERCEDEZ NIEVES MD Sep 06, 2017 13:28
== END 2017-09-06 14:06 | disposition home or self-care (01) ==
LOC: ER 12:44
DX: F20.9 Schizophrenia, unspecified (principal); Z59.0 Homelessness; R06.02 Shortness of breath; Z91.012 Allergy to eggs; Z91.013 Allergy to seafood
CPT/HCPCS: 99281

== ENCOUNTER 2017-09-06 20:29 | Emergency (ER) | payer MEDICARE ==
[~2017-09-06] VITALS: Ht 170.2 cm; Wt 86.4 kg
--- NOTE | 2017-09-06 21:22 | RAD ---
CT Head without contrast 09/06/2017 Clinical Indication: Fall with head pain Comparison: None Technique: Multiple CT images of the head were obtained without contrast. *One or more of the following individualized dose reduction techniques were utilized for this examination: 1. Automated exposure control. 2. Adjustment of the mA and/or kV according to patient size. 3. Use of iterative reconstruction technique. Findings: There is linear low attenuation at the bilateral lateral anterior frontal lobes series 2/image 7. Ventricles are normal in size and configuration for age. The sutton-white matter interfaces are maintained. No midline shift. The basal cisterns are patent. The visualized mastoid air cells and paranasal sinuses are well aerated. Impression: Linear low attenuation of the lateral anterior frontal lobes which may be due to artifact. Short-term repeat examination is recommended to exclude underlying acute intracranial hemorrhage. Electronically signed by: Benedicto Brunner MD (09/06/2017 9:19 PM) [id number]
[2017-09-06 21:30] VITALS: BP 101/54
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
== END 2017-09-06 22:33 | disposition home or self-care (01) ==
LOC: ER 20:29
DX: S00.03XA Contusion of scalp, initial encounter (principal); F20.9 Schizophrenia, unspecified; Z91.012 Allergy to eggs; Z91.013 Allergy to seafood; V49.9XXA Car occupant (driver) (passenger) injured in unspecified traffic accident, initial encounter; Y93.89 Activity, other specified; Y99.8 Other external cause status; Y92.488 Other paved roadways as the place of occurrence of the external cause
CPT/HCPCS: 70450; 99284-25

== ENCOUNTER 2017-09-07 19:53 | Emergency (ER) | payer MEDICARE ==
[~2017-09-07] VITALS: Ht 170.2 cm; Wt 94.5 kg
[2017-09-07 20:00] VITALS: BP 137/79
--- NOTE | 2017-09-07 20:06 | PHYS DOC ---
Past History Past Medical History: Schizophrenia Past Surgical History: No Surgical History, Other Alcohol Use: None Drug Use: None Adult General Chief Complaint Chief Complaint: HALLUCINATIONS AUDIBLE/VISUAL HPI HPI This patient is a pleasant otherwise healthy 41-year-old male with a known history of schizophrenia barrier on the step here presents tonight with voices telling him to get cold and take care of himself and straighten out his social life.. He denies any homicidal suicidal ideations or thoughts of hurting anyone else but he is concerned is so cold that he will freeze to he does not stay. The social house he was staying at all around stay because of his behavior so is coming here to the ER. He's got no other complaints Review of Systems Review of Systems Constitutional: Denies fever or chills [] Eyes: Denies change in visual acuity, redness, or eye pain [] HENT: Denies nasal congestion or sore throat [] Respiratory: Denies cough or shortness of breath [] Cardiovascular: No additional information not addressed in HPI [] GI: Denies abdominal pain, nausea, vomiting, bloody stools or diarrhea [] : Denies dysuria or hematuria [] Musculoskeletal: Denies back pain or joint pain [] Integument: Denies rash or skin lesions [] Neurologic: Denies headache, focal weakness or sensory changes [] Endocrine: Denies polyuria or polydipsia [] All other systems were reviewed and found to be within normal limits, except as documented in this note. Allergies Allergies Allergies Coded Allergies Type Severity Reaction Last Updated Verified egg Allergy Intermediate 04/14/17 Yes shellfish derived Allergy Intermediate 04/14/17 Yes Physical Exam Physical Exam Other vital signs were the chart within normal limits. Constitutional: Well developed, well nourished, no acute distress, non-toxic appearance. [] HENT: Normocephalic, atraumatic, bilateral external ears normal, oropharynx moist, normal. [] Eyes: PERRLA, EOMI, conjunctiva normal, no discharge. [] Neck: Normal range of motion, no tenderness, Cardiovascular:Heart rate regular rhythm, no murmur [] Lungs & Thorax: Bilateral breath sounds clear to auscultation [ Skin: Warm, dry, no erythema, no rash. [] Back: No tenderness, no CVA tenderness. [] Extremities: No tenderness, no cyanosis, no clubbing, ROM intact, no edema. [] Neurologic: Alert and oriented X 3, normal motor function, normal sensory function, no focal deficits noted. Patient does note some auditory and visual hallucinations which are chronic for him there is no command orders for him to hurt himself or anybody else.[] Psychologic: Affect normal, judgement normal, mood normal. [] EKG EKG [] Radiology/Procedures Radiology/Procedures [] Course & Med Decision Making Course & Med Decision Making Pertinent Labs and Imaging studies reviewed. (See chart for details) []When confronted with why he is truly here he admitted that he had no medical necessity for being here. He was just cold and hungry so we offered him a place to stay and given food to keep him warm until the morning he can go home. Dragon Disclaimer Dragon Disclaimer This electronic medical record was generated, in whole or in part, using a voice recognition dictation system. Departure Departure: Impression: Primary Impression: Hungry Additional Impression: Cold and clammy skin Disposition: HOME, SELF-CARE Condition: STABLE Referrals: PCPSTEVE (PCP) Patient Instructions: Medical Screening Exam Additional Instructions: discharge: I've spoken with the patient and/or caregivers. I've explained the patient's condition, diagnosis and treatment plan based on information available to me at this time. I've answered the patient's and/or caregivers questions and addressed any concerns. The patient and/or caregivers have a good understanding the patient's diagnosis, condition and treatment plan as can be expected at this point. Vital signs have been stabilized. The patient's condition is stable for discharge from the emergency department. The patient will pursue further outpatient evaluation with her primary care provider or other designated consulting physician as outlined in the discharge instructions. Patient and/or caregivers are agreeable to this plan of care and follow-up instructions have been explained in detail. The patient and/or caregivers have received these instructions in written format and expressed understanding of these discharge instructions. The patient and her caregivers are aware that if any significant change in condition or worsening of symptoms should prompt him to immediately return to this of the closest emergency department. If an emergent department is not readily available I would encourage him to call 911. Problem Qualifiers JUNIOR MORENO MD Sep 07, 2017 20:06
== END 2017-09-07 20:30 | disposition home or self-care (01) ==
LOC: ER 19:53
DX: J00 Acute nasopharyngitis [common cold] (principal); R23.1 Pallor; E83.81 Hungry bone syndrome; F20.9 Schizophrenia, unspecified; Z59.0 Homelessness; Z91.012 Allergy to eggs; Z91.013 Allergy to seafood
CPT/HCPCS: 99284

== ENCOUNTER 2017-10-12 18:43 | Emergency (ER) | payer MEDICARE ==
[~2017-10-12] VITALS: Ht 170.2 cm; Wt 94.5 kg
--- NOTE | 2017-10-12 19:12 | PHYS DOC ---
Past History Past Medical History: Bipolar, Schizophrenia Past Surgical History: No Surgical History, Other Alcohol Use: None Drug Use: None Adult General HPI HPI Patient is a male presents to the emergency department with concerns of dehydration as well as auditory hallucinations. Patient denies SI or HI. Patient also states he had an anxiety attack yesterday. Patient is noncompliant with medication regimen. Patient has history of bipolar disorder as well as schizophrenia and multiple admissions for psychiatric condition Review of Systems Review of Systems Constitutional: Denies fever or chills. Feels dehydrated HENT: Denies nasal congestion or sore throat [] Respiratory: Denies cough or shortness of breath [] Cardiovascular: No chest pain GI: Denies abdominal pain, nausea, vomiting, Musculoskeletal: Denies back pain or joint pain [] Integument: Denies rash or skin lesions [] Neurologic: Denies headache, focal weakness or sensory changes [] All other systems were reviewed and found to be within normal limits, except as documented in this note. Allergies Allergies Allergies Coded Allergies Type Severity Reaction Last Updated Verified egg Allergy Intermediate 09/07/17 Yes shellfish derived Allergy Intermediate 09/07/17 Yes Physical Exam Physical Exam Constitutional: Well developed, well nourished, no acute distress, non-toxic appearance. Dirty clothing HENT: Normocephalic, atraumatic, bilateral external ears normal, oropharynx moist, no oral exudates, nose normal. [] Eyes: EOMI, conjunctiva normal, no discharge. [] Neck: Normal range of motion, no tenderness, supple, no stridor. No meningeal signs Cardiovascular:Heart rate regular rhythm, no murmur, equal pulses, normal perfusion Lungs & Thorax: Bilateral breath sounds clear to auscultation, no tachypnea Abdomen: Bowel sounds normal, soft, no tenderness, Skin: Warm, dry, no erythema, no rash. [] Back: No tenderness, no CVA tenderness. [] Extremities: No tenderness, no DVT, ROM intact, no edema. [] Neurologic: Alert and oriented X 3, normal motor function,, no focal deficits noted. [] Psychologic: Affect normal, judgement normal, mood normal. [] EKG EKG 1930 sinus rhythm, 84, no STEMI[] Radiology/Procedures Radiology/Procedures [] Course & Med Decision Making Course & Med Decision Making Pertinent Labs and Imaging studies reviewed. (See chart for details) [] Kristina Disclaimer Dragon Disclaimer This electronic medical record was generated, in whole or in part, using a voice recognition dictation system. Departure Departure: Referrals: PCP,STEVE (PCP) Matthew NEVAREZ MD Oct 12, 2017 19:12
--- NOTE | 2017-10-12 19:32 | EKG ---
[address] [address] Test Date: 2017-10-12 Test Time: 19:29:40 Pat Name: MADELINE SANCHEZ Department: Room: Gender: M Neurology Teacher: CYNTHIA : 1975 Requested By: Matthew NEVAREZ Order Number: [id number] Reading MD: Catracho Crockett Measurements Intervals [place] Rate: 84 P: 22 IA: 152 QRS: -30 QRSD: 92 T: 7 QT: 364 QTc: 433 Interpretive Statements SINUS RHYTHM ABNORMAL LEFT AXIS DEVIATION LEFT ANTERIOR FASCICULAR BLOCK INCOMPLETE RIGHT BUNDLE BRANCH BLOCK LEFT VENTRICULAR HYPERTROPHY ABNORMAL ECG RI6.01 Compared to ECG 08/30/2017 04:04:07 Left anterior fascicular block now present Incomplete right bundle-branch block now present Left ventricular hypertrophy now present Electronically Signed On 10-20-2017 10:53:51 CHECK SERVICES CLERK by Catracho Crockett
[2017-10-12] MEDS ORDERED: OLANZapine 2.5 MG TABLET PO ONE ×2 (19:45→22:00)
[2017-10-12 20:00] LABS: BASO % 1 % (0-3); EOS # 0.1 x10^3/uL (0.0-0.7); EOS % 3 % (0-3); HEMOGLOBIN 13.6 g/dL (13.0-17.5); LYMPH # 1.7 x10^3/uL (1.0-4.8); LYMPH % 38 % (24-48); MEAN CORPUSCULAR HEMOGLOBIN 25 pg (25-35); MEAN CORPUSCULAR HGB CONC 33 g/dL (31-37); MEAN CORPUSCULAR VOLUME 74 fL (79-100); MONO # 0.4 x10^3/uL (0.0-1.1); MONO % 8 % (0-9); NEUT # 2.3 x10^3uL (1.8-7.7); NEUT % 51 % (31-73); PLATELET COUNT 234 x10^3/uL (140-400); RED BLOOD COUNT 5.52 x10^6/uL (4.30-5.70); RED CELL DISTRIBUTION WIDTH 15.2 % (11.5-14.5); WHITE BLOOD COUNT 4.5 x10^3/uL (4.0-11.0)
[2017-10-12 20:14] LABS: BACTERIA,URINE 0 /HPF (0-FEW); BILIRUBIN,URINE NEG (NEG); CLARITY,URINE CLEAR; COLOR,URINE YELLOW; GLUCOSE,URINE NEG (NEG); NITRITE,URINE NEG (NEG); RBC,URINE 0 /HPF (0-2); SQUAMOUS EPITHELIAL CELL,UR OCC /LPF; UROBILINOGEN,URINE 0.2 mg/dL (0.2 mg/dL); WBC,URINE 0 /HPF (0-4)
[2017-10-12 20:28] LABS: ALBUMIN 3.6 g/dL (3.4-5.0); ALBUMIN/GLOBULIN RATIO 0.9 (1.0-1.7); CALCIUM 8.9 mg/dL (8.5-10.1); CREATININE 0.8 mg/dL (0.7-1.3); GFR 128.9; MAGNESIUM 1.6 mg/dL (1.8-2.4); POTASSIUM 3.8 mmol/L (3.5-5.1); TOTAL BILIRUBIN 0.2 mg/dL (0.2-1.0); TOTAL PROTEIN 7.8 g/dL (6.4-8.2)
[2017-10-12 22:29] LABS: BARBITURATES NEG (NEG); BENZODIAZEPINES NEG (NEG); CANNABINOIDS NEG (NEG); COCAINE NEG (NEG); METHADONE NEG (NEG); OPIATES NEG (NEG); PHENCYCLIDINE NEG (NEG)
[2017-10-12 22:36] LABS: AMPHETAMINE/METHAMPHETAMINE NEG (NEG)
[2017-10-13 10:01] VITALS: BP 120/67
== END 2017-10-13 11:22 | disposition left against medical advice (07) ==
LOC: ER 18:43
DX: E86.0 Dehydration (principal); R44.0 Auditory hallucinations; F31.9 Bipolar disorder, unspecified; F41.9 Anxiety disorder, unspecified; F20.9 Schizophrenia, unspecified; Z91.012 Allergy to eggs; Z91.013 Allergy to seafood; Z91.14 Patient's other noncompliance with medication regimen
CPT/HCPCS: 36415; 80053; 80307; 81001; 83735; 85025; 93005; 99285-25; G0479

== ENCOUNTER 2017-10-14 02:02 | Emergency (ER) | payer MEDICARE ==
[~2017-10-14] VITALS: Ht 170.2 cm; Wt 94.5 kg
--- NOTE | 2017-10-14 03:07 | PHYS DOC ---
Past History Past Medical History: Anxiety, Bipolar, Schizophrenia Past Surgical History: No Surgical History, Other Alcohol Use: None Drug Use: None Adult General Chief Complaint Chief Complaint: HALLUCINATIONS AUDIBLE/VISUAL HPI HPI Patient is a 42-year-old male presenting to the emergency department for evaluation of auditory hallucinations. Patient is very vague about this and does not commit on his voices he is hearing what they're telling him rather he just says that he is hearing voices and he would like to be placed. 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 He said that he does not like this place and he would not go there and he signed out AGAINST MEDICAL ADVICE. He has no medical complaints and he denies any suicidal or homicidal ideations. Review of Systems Review of Systems Constitutional: Denies fever or chills [] Eyes: Denies change in visual acuity, redness, or eye pain [] HENT: Denies nasal congestion or sore throat [] Respiratory: Denies cough or shortness of breath [] Cardiovascular: No additional information not addressed in HPI [] GI: Denies abdominal pain, nausea, vomiting, bloody stools or diarrhea [] : Denies dysuria or hematuria [] Musculoskeletal: Denies back pain or joint pain [] Integument: Denies rash or skin lesions [] Neurologic: Denies headache, focal weakness or sensory changes [] All other systems were reviewed and found to be within normal limits, except as documented in this note. Allergies Allergies Allergies Coded Allergies Type Severity Reaction Last Updated Verified egg Allergy Intermediate 09/07/17 Yes shellfish derived Allergy Intermediate 09/07/17 Yes Physical Exam Physical Exam Constitutional: Well developed, well nourished, no acute distress, non-toxic appearance. [] HENT: Normocephalic, atraumatic, bilateral external ears normal, oropharynx moist, no oral exudates, nose normal. [] Eyes: PERRLA, EOMI, conjunctiva normal, no discharge. [] Neck: Normal range of motion, no tenderness, supple, no stridor. [] Cardiovascular:Heart rate regular rhythm, no murmur [] Lungs & Thorax: Bilateral breath sounds clear to auscultation [] Abdomen: Bowel sounds normal, soft, no tenderness, no masses, no pulsatile masses. [] Skin: Warm, dry, no erythema, no rash. [] Back: No tenderness, no CVA tenderness. [] Extremities: No tenderness, no cyanosis, no clubbing, ROM intact, no edema. [] Neurologic: Alert and oriented X 3, normal motor function, normal sensory function, no focal deficits noted. [] EKG EKG [] Radiology/Procedures Radiology/Procedures [] Course & Med Decision Making Course & Med Decision Making [facility] will screen the patient. Patient is medically cleared from my standpoint. [facility] had us check labs but refused to come see the patient. Initially they made it sound as if they were going to come see him if he was medically cleared but then they said that they would not see him overnight but there would be willing to see him at 8 in the morning. Currently it is 4:00 in the morning and patient has no medical emergency or psychiatric emergency as he has not an harm to self or others. Patient will be told to follow with the [facility] on his own or come back to the emergency department during business hours if he wants to be screened here for placement. Patient discharged in stable condition. Dragon Disclaimer Dragon Disclaimer This electronic medical record was generated, in whole or in part, using a voice recognition dictation system. Departure Departure: Impression: Primary Impression: Hallucination Disposition: 01 HOME, SELF-CARE Condition: STABLE Referrals: PCP,STEVE (PCP) Patient Instructions: Hallucinations and Delusions Additional Instructions: Follow with the guidance center during business hours if you want to be screened for placement. DIANE MONDRAGON DO Oct 14, 2017 03:07
[2017-10-14 03:37] LABS: BASO # 0.1 x10^3/uL (0.0-0.2); BASO % 1 % (0-3); EOS # 0.1 x10^3/uL (0.0-0.7); EOS % 3 % (0-3); HEMATOCRIT 42.1 % (39.0-53.0); LYMPH # 1.6 x10^3/uL (1.0-4.8); LYMPH % 36 % (24-48); MEAN CORPUSCULAR HEMOGLOBIN 25 pg (25-35); MEAN CORPUSCULAR HGB CONC 33 g/dL (31-37); MEAN CORPUSCULAR VOLUME 74 fL (79-100); MONO # 0.3 x10^3/uL (0.0-1.1); MONO % 7 % (0-9); NEUT # 2.4 x10^3uL (1.8-7.7); NEUT % 53 % (31-73); PLATELET COUNT 236 x10^3/uL (140-400); RED BLOOD COUNT 5.65 x10^6/uL (4.30-5.70); RED CELL DISTRIBUTION WIDTH 15.6 % (11.5-14.5); WHITE BLOOD COUNT 4.5 x10^3/uL (4.0-11.0)
[2017-10-14 03:46] LABS: BARBITURATES NEG (NEG); BENZODIAZEPINES NEG (NEG); CANNABINOIDS NEG (NEG); COCAINE NEG (NEG); METHADONE NEG (NEG); OPIATES NEG (NEG); PHENCYCLIDINE NEG (NEG)
[2017-10-14 03:47] LABS: AMPHETAMINE/METHAMPHETAMINE NEG (NEG)
[2017-10-14 03:49] LABS: ALBUMIN 3.6 g/dL (3.4-5.0); ALBUMIN/GLOBULIN RATIO 0.8 (1.0-1.7); CALCIUM 8.6 mg/dL (8.5-10.1); CREATININE 0.7 mg/dL (0.7-1.3); GFR 150.4; POTASSIUM 3.8 mmol/L (3.5-5.1); TOTAL BILIRUBIN 0.2 mg/dL (0.2-1.0); TOTAL PROTEIN 7.9 g/dL (6.4-8.2)
[2017-10-14 03:50] LABS: ETHANOL < 10 mg/dL (0-10); SALIC 0.5 mg/dL (2.8-20.0)
[2017-10-14 03:51] LABS: ACETAMIN < 2.0 mcg/mL (10-30)
[2017-10-14 04:27] VITALS: BP 123/71
== END 2017-10-14 04:28 | disposition home or self-care (01) ==
LOC: ER 02:02
DX: F20.9 Schizophrenia, unspecified (principal); F31.9 Bipolar disorder, unspecified; F41.9 Anxiety disorder, unspecified; R44.0 Auditory hallucinations; Z91.012 Allergy to eggs; Z91.013 Allergy to seafood
CPT/HCPCS: 36415; 80053; 80307; 85025; 99284; G0480; G0479

== ENCOUNTER 2017-10-15 19:54 | Emergency (ER) | payer MEDICARE ==
[~2017-10-15] VITALS: Ht 170.2 cm; Wt 94.5 kg
[2017-10-15 20:15] VITALS: BP 132/74
--- NOTE | 2017-10-15 20:34 | PHYS DOC ---
Past History Past Medical History: Anxiety, Bipolar, Schizophrenia Past Surgical History: No Surgical History, Other Alcohol Use: None Drug Use: None Adult General Chief Complaint Chief Complaint: HALLUCINATIONS AUDIBLE/VISUAL HPI HPI 42-year-old homeless male patient with history of PTSD and schizophrenia and frequent emergency room visits complaining of hearing voices for several months that telling him today to cut his wrist and left great to harm himself. Patient denies suicidal and homicidal ideation or plan and history of previous suicidal attempt. Patient denies using alcohol or drugs. Review of Systems Review of Systems Constitutional: Denies fever or chills [] Eyes: Denies change in visual acuity, redness, or eye pain [] HENT: Denies nasal congestion or sore throat [] Respiratory: Denies cough or shortness of breath [] Cardiovascular: No additional information not addressed in HPI [] GI: Denies abdominal pain, nausea, vomiting, bloody stools or diarrhea [] : Denies dysuria or hematuria [] Musculoskeletal: Denies back pain or joint pain [] Integument: Denies rash or skin lesions [] Neurologic: Denies headache, focal weakness or sensory changes [] Endocrine: Denies polyuria or polydipsia [] All other systems were reviewed and found to be within normal limits, except as documented in this note. Allergies Allergies Allergies Coded Allergies Type Severity Reaction Last Updated Verified egg Allergy Intermediate 09/07/17 Yes shellfish derived Allergy Intermediate 09/07/17 Yes Physical Exam Physical Exam Constitutional: Well nourished, no acute distress, anxious,non-toxic appearance. [] HENT: Normocephalic, atraumatic, bilateral external ears normal, oropharynx moist, no oral exudates, nose normal. [] Eyes: PERRLA, EOMI, conjunctiva normal, no discharge. [] Neck: Normal range of motion, no tenderness, supple, no stridor. [] Cardiovascular:Heart rate regular rhythm, no murmur [] Lungs & Thorax: Bilateral breath sounds clear to auscultation [] Abdomen: Bowel sounds normal, soft, no tenderness, no masses, no pulsatile masses. [] Skin: Warm, dry, no erythema, no rash. [] Back: No tenderness, no CVA tenderness. [] Extremities: No tenderness, no cyanosis, no clubbing, ROM intact, no edema. [] Neurologic: Alert and oriented X 3, normal motor function, normal sensory function, no focal deficits noted. [] Psychologic: Anxious, auditory hallucination EKG EKG EKG interpreted by me. EKG at 2017 showed normal sinus rhythm at rate of 91, left atrial abnormality, abnormal left axis deviation, is anticipated your fascicular block, left ventricular hypertrophy, no acute ST and T wave abnormality[] Radiology/Procedures Radiology/Procedures [] Course & Med Decision Making Course & Med Decision Making Evaluation of patient in ER showed 42 year old homeless male patient presented to ER with complaining of hallucination. Patient diffuse 12 labs and did sign a against medical advise. Patient denies suicidal and homicidal ideation and states he had chronic hallucination with demanding him to cut his wrists. Patient was [facility] by [facility] and signed safety contract and denied suicidal and homicidal ideation at time of discharge. Patient instructed to follow-up with [facility]. Dragon Disclaimer Dragon Disclaimer This electronic medical record was generated, in whole or in part, using a voice recognition dictation system. Departure Departure: Impression: Primary Impression: Auditory hallucination Additional Impressions: Homeless History of schizophrenia Disposition: HOME, SELF-CARE (At 2319) Condition: STABLE Referrals: PCP,NO (PCP) Patient Instructions: Hallucinations and Delusions Additional Instructions: Follow-up with [facility] in one or 2 days Problem Qualifiers JAIRO GOODWIN MD Oct 15, 2017 20:34
== END 2017-10-15 23:46 | disposition left against medical advice (07) ==
LOC: ER 19:54
DX: R44.0 Auditory hallucinations (principal); F20.9 Schizophrenia, unspecified; F41.9 Anxiety disorder, unspecified; F31.9 Bipolar disorder, unspecified; Z59.0 Homelessness; Z91.012 Allergy to eggs; Z91.013 Allergy to seafood
CPT/HCPCS: 99284

== ENCOUNTER 2017-10-17 21:05 | Emergency (ER) | payer MEDICARE ==
[~2017-10-17] VITALS: Ht 170.2 cm; Wt 94.5 kg
[2017-10-17 21:05] VITALS: BP 130/92
[2017-10-17] MEDS ORDERED: MVI, ADULT NO.4 WITH VIT K 10 ML, FOLIC ACID 1 MG, THIAMINE 100 MG in IV DEXTROSE 5%-LA... IV ONE ×4 (21:30)
--- NOTE | 2017-10-17 22:29 | ED.ADGEN ---
Past History Past Medical History: Anxiety, Bipolar, Schizophrenia Past Surgical History: No Surgical History, Other Alcohol Use: None Drug Use: None Adult General Chief Complaint Chief Complaint ".. I am really hearing the voices.. ".. HPI HPI Patient is a 42 year old male who presents with above hx of exacerbation of his schizophrenia and hallucinations. Pt. states voices are very "strong." The voices have been yelling at him all night. It is making him very scared. Pt. know to ED for his schizophrenia, depression and hx of non-compliant to medical tx. Pt. advised he has not been following at the counseling center and has not taken his psych. meds. as directed. Patient denies any illicit drug use. Patient recently kicked out of only halfway in [place] because of this yelling at hallucinations. Pt. denies suicidal or homicidal ideations. Patient states voices are not telling him to do anything particular. Review of Systems Review of Systems Pt. primary complaints are hallucinations Constitutional: Denies fever or chills [] Eyes: Denies change in visual acuity, redness, or eye pain [] HENT: Denies nasal congestion or sore throat [] Respiratory: Denies cough or shortness of breath [] Cardiovascular: No additional information not addressed in HPI [] GI: Denies abdominal pain, nausea, vomiting, bloody stools or diarrhea [] : Denies dysuria or hematuria [] Musculoskeletal: Denies back pain or joint pain [] Integument: Denies rash or skin lesions [] Neurologic: Denies headache, focal weakness or sensory changes []complaints of hallucinations Endocrine: Denies polyuria or polydipsia [] All other systems were reviewed and found to be within normal limits, except as documented in this note. Family History Family History Noncontributory Current Medications Current Medications Current Medications Medications (Trade) Dose Ordered Sig/Rosey Start Time Stop Time Status Last Admin Dose Admin Multivitamins/ Minerals 10 ml/ Folic Acid 1 mg/ Thiamine HCl 100 mg/Dextrose/ Lactated Ringer's 1,011.2 ml @ 0 mls/hr 1X ONCE 10/17/17 21:30 10/17/17 21:31 DC 10/17/17 22:50 1,000 MLS/HR Olanzapine (ZyPREXA) 5 mg 1X ONCE 10/18/17 01:45 10/18/17 02:39 DC 10/18/17 02:19 5 MG Allergies Allergies Allergies Coded Allergies Type Severity Reaction Last Updated Verified egg Allergy Intermediate 09/07/17 Yes shellfish derived Allergy Intermediate 09/07/17 Yes Physical Exam Physical Exam Constitutional: Well developed, well nourished, in moderately acute emotional distress, non-toxic appearance. [] HENT: Normocephalic, atraumatic, bilateral external ears normal, oropharynx moist, no oral exudates, nose normal. [] Eyes: PERRLA, EOMI, conjunctiva normal, no discharge. [] Neck: Normal range of motion, no tenderness, supple, no stridor. [] Cardiovascular:Heart rate regular rhythm, no murmur [] Lungs & Thorax: Bilateral breath sounds equal apex on auscultation [] Abdomen: Bowel sounds normal, soft, no tenderness, no masses, no pulsatile masses. [] Skin: Warm, dry, no erythema, no rash. [] Back: No tenderness, no CVA tenderness. [] Extremities: No tenderness, no cyanosis, no clubbing, ROM intact, no edema. [] Neurologic: Alert and oriented X 3, normal motor function, normal sensory function, no focal deficits noted. [] Psychologic: Affect anxious, judgement poor insight to his psychosis, mood normal. Agitated at times talking to his hallucinations. Current Patient Data Vital Signs Vital Signs Date Time Temp Pulse Resp B/P (MAP) Pulse Ox O2 Delivery O2 Flow Rate FiO2 10/18/17 03:00 97.8 10/17/17 21:05 81 20 98 Room Air Lab Results Laboratory Tests Test 10/17/17 22:35 10/17/17 22:50 White Blood Count 4.9 x10^3/uL (4.0-11.0) Red Blood Count 5.60 x10^6/uL (4.30-5.70) Hemoglobin 13.4 g/dL (13.0-17.5) Hematocrit 41.4 % (39.0-53.0) Mean Corpuscular Volume 74 fL (79-100) L Mean Corpuscular Hemoglobin 24 pg (25-35) L Mean Corpuscular Hemoglobin Concent 33 g/dL (31-37) Red Cell Distribution Width 15.6 % (11.5-14.5) H Platelet Count 240 x10^3/uL (140-400) Neutrophils (%) (Auto) 48 % (31-73) Lymphocytes (%) (Auto) 40 % (24-48) Monocytes (%) (Auto) 8 % (0-9) Eosinophils (%) (Auto) 3 % (0-3) Basophils (%) (Auto) 1 % (0-3) Neutrophils # (Auto) 2.3 x10^3uL (1.8-7.7) Lymphocytes # (Auto) 2.0 x10^3/uL (1.0-4.8) Monocytes # (Auto) 0.4 x10^3/uL (0.0-1.1) Eosinophils # (Auto) 0.1 x10^3/uL (0.0-0.7) Basophils # (Auto) 0.0 x10^3/uL (0.0-0.2) Urine Collection Type Unknown Urine Color Yellow Urine Clarity Clear Urine pH 7.0 Urine Specific [place] 1.025 Urine Protein Neg (NEG-TRACE) Urine Glucose (UA) Neg mg/dL (NEG) Urine Ketones (Stick) Trace mg/dL (NEG) Urine Blood Trace (NEG) Urine Nitrite Neg (NEG) Urine Bilirubin Neg (NEG) Urine Urobilinogen Dipstick 0.2 mg/dL (0.2 mg/dL) Urine Leukocyte Esterase Neg (NEG) Urine RBC Rare /HPF (0-2) Urine WBC Occ /HPF (0-4) Urine Squamous Epithelial Cells Occ /LPF Urine Amorphous Sediment Present /HPF Urine Bacteria 0 /HPF (0-FEW) Urine Mucus Slight /LPF Sodium Level 138 mmol/L (136-145) Potassium Level 4.0 mmol/L (3.5-5.1) Chloride Level 104 mmol/L (98-107) Carbon Dioxide Level 26 mmol/L (21-32) Anion Gap 8 (6-14) Blood Urea Nitrogen 13 mg/dL (8-26) Creatinine 0.7 mg/dL (0.7-1.3) Estimated GFR (Cockcroft-Gault) 150.4 Glucose Level 79 mg/dL (70-99) Calcium Level 9.1 mg/dL (8.5-10.1) Magnesium Level 1.9 mg/dL (1.8-2.4) Creatine Kinase 501 U/L (39-308) H Creatine Kinase MB (Mass) 10.0 ng/mL (0.0-3.6) H Creatine Kinase MB Relative Index 2.0 % (0-4) Troponin I Quantitative < 0.017 ng/mL (0-0.055) SO-Kmj-[id number]-Type Natriuretic Peptide 16 pg/mL (0-124) Urine Opiates Screen Neg (NEG) Urine Methadone Screen Neg (NEG) Urine Barbiturates Neg (NEG) Urine Phencyclidine Screen Neg (NEG) Urine Amphetamine/Methamphetamine Neg (NEG) Urine Benzodiazepines Screen Neg (NEG) Urine Cocaine Screen Neg (NEG) Urine Cannabinoids Screen Neg (NEG) Ethyl Alcohol Level < 10 mg/dL (0-10) Urine Ethyl Alcohol Neg (NEG) Prothrombin Time 10.2 SEC (9.4-11.4) Prothrombin Time INR 1.0 (0.9-1.1) PTT 24 SEC (23-33) EKG EKG [] Radiology/Procedures Radiology/Procedures My interpretation chest x-ray shows no acute cardiopulmonary findings[] Course & Med Decision Making Course & Med Decision Making Pertinent Labs and Imaging studies reviewed. (See chart for details). Call the counseling center- advised they will would not do an assessment on him since he was seen 2 days ago. Call us to [facility]-but unable to give the patient any assistance. Patient did eventually agree to take Zyprexa. Encourage patient to keep follow up counseling center. Was given a prescription for Zyprexa 5 mg daily for next 30 days. [] Final Impression Final Impression 1. Exacerbation of Psychosis[]-schizophrenia 2. Hallucinations 3. History of noncompliance 4. Elevated CK 5. Microcytic hypochromic indices 6. Hx. of Bipolar Problems: Dragon Disclaimer Dragon Disclaimer This electronic medical record was generated, in whole or in part, using a voice recognition dictation system. EFFIE COPELAND MD Oct 17, 2017 22:29
[2017-10-17 22:50] LABS: BASO % 1 % (0-3); EOS # 0.1 x10^3/uL (0.0-0.7); EOS % 3 % (0-3); HEMATOCRIT 41.4 % (39.0-53.0); HEMOGLOBIN 13.4 g/dL (13.0-17.5); LYMPH % 40 % (24-48); MEAN CORPUSCULAR HEMOGLOBIN 24 pg (25-35); MEAN CORPUSCULAR HGB CONC 33 g/dL (31-37); MEAN CORPUSCULAR VOLUME 74 fL (79-100); MONO # 0.4 x10^3/uL (0.0-1.1); MONO % 8 % (0-9); NEUT # 2.3 x10^3uL (1.8-7.7); NEUT % 48 % (31-73); PLATELET COUNT 240 x10^3/uL (140-400); RED CELL DISTRIBUTION WIDTH 15.6 % (11.5-14.5); WHITE BLOOD COUNT 4.9 x10^3/uL (4.0-11.0)
[2017-10-17 22:56] LABS: AMORPHOUS SEDIMENT,UR PRESENT /HPF; BACTERIA,URINE 0 /HPF (0-FEW); BILIRUBIN,URINE NEG (NEG); CLARITY,URINE CLEAR; COLOR,URINE YELLOW; GLUCOSE,URINE NEG (NEG); NITRITE,URINE NEG (NEG); RBC,URINE RARE /HPF (0-2); SQUAMOUS EPITHELIAL CELL,UR OCC /LPF; UROBILINOGEN,URINE 0.2 mg/dL (0.2 mg/dL); WBC,URINE OCC /HPF (0-4)
[2017-10-17 22:57] LABS: BARBITURATES NEG (NEG); BENZODIAZEPINES NEG (NEG); CANNABINOIDS NEG (NEG); COCAINE NEG (NEG); METHADONE NEG (NEG); OPIATES NEG (NEG); PHENCYCLIDINE NEG (NEG)
[2017-10-17 23:01] LABS: AMPHETAMINE/METHAMPHETAMINE NEG (NEG)
[2017-10-17 23:12] LABS: CALCIUM 9.1 mg/dL (8.5-10.1); CREATININE 0.7 mg/dL (0.7-1.3); GFR 150.4; MAGNESIUM 1.9 mg/dL (1.8-2.4)
[2017-10-18] MEDS ORDERED: OLAN5TAB3 PO (01:42)
[2017-10-18] MEDS ORDERED: OLANZapine 2.5 MG TABLET PO ONE (01:45)
--- NOTE | 2017-10-18 08:19 | RAD ---
AP PORTABLE CHEST Clinical Indication: dyspnea. Comparison: PA chest, 05/24/2017. Findings: The cardiomediastinal silhouette is normal. Lungs are clear. There is no pneumothorax. No pleural effusion is appreciated. There is no acute bone abnormality. IMPRESSION: No acute cardiopulmonary process.
== END 2017-10-18 03:00 | disposition home or self-care (01) ==
LOC: ER 21:05
DX: F20.9 Schizophrenia, unspecified (principal); R74.8 Abnormal levels of other serum enzymes; F41.9 Anxiety disorder, unspecified; F31.9 Bipolar disorder, unspecified; D53.9 Nutritional anemia, unspecified; D50.9 Iron deficiency anemia, unspecified; Z91.19 Patient's noncompliance with other medical treatment and regimen; Z91.012 Allergy to eggs; Z91.013 Allergy to seafood
CPT/HCPCS: 36415; 71045; 80048; 80307; 81001; 82553; 83735; 83880; 84484; 85025; 85610; 85730; 96365; 96366; 99285; G0480; G0479

== ENCOUNTER 2017-10-20 19:20 | Emergency (ER) | payer MEDICARE ==
[~2017-10-20] VITALS: Ht 170.2 cm; Wt 94.5 kg
[2017-10-20 19:25] VITALS: BP 128/67
--- NOTE | 2017-10-20 20:43 | PHYS DOC ---
Past History Past Medical History: Anxiety, Bipolar, Schizophrenia Past Surgical History: No Surgical History, Other Alcohol Use: None Drug Use: None Adult General Chief Complaint Chief Complaint: KNEE INJURY HPI HPI 42-year-old male very well known to our emergency medicine service for his history of schizophrenia with very frequent visits for vague or nonexistent complaints. Patient now presents to the emergency department again. His baseline is intermittent auditory hallucinations which she states he has. These voices are not telling him to hurt himself or anyone else. He is able function with his activities of daily living without difficulty. Patient had no specific complaint in triage. He was instructed that he should check in if he has an actual medical issue, the patient then decided that he had an issue with his knee but admitted that he has no symptoms in this regard. Review of Systems Review of Systems Constitutional: Denies fever or chills [] Eyes: Denies change in visual acuity, redness, or eye pain [] HENT: Denies nasal congestion or sore throat [] Respiratory: Denies cough or shortness of breath [] Cardiovascular: No additional information not addressed in HPI [] GI: Denies abdominal pain, nausea, vomiting, bloody stools or diarrhea [] : Denies dysuria or hematuria [] Musculoskeletal: Denies back pain or joint pain [] Integument: Denies rash or skin lesions [] Neurologic: Denies headache, focal weakness or sensory changes [] Endocrine: Denies polyuria or polydipsia [] All other systems were reviewed and found to be within normal limits, except as documented in this note. Allergies Allergies Allergies Coded Allergies Type Severity Reaction Last Updated Verified egg Allergy Intermediate 09/07/17 Yes shellfish derived Allergy Intermediate 09/07/17 Yes Physical Exam Physical Exam Patient is highly verbal which is his baseline. He is alert and communicative. He is able to able to function appears well-groomed. Patient is able emulate with no limp or apparent discomfort whatsoever. His gross exam is benign Constitutional: Well developed, well nourished, no acute distress, non-toxic appearance. [] HENT: Normocephalic, atraumatic, bilateral external ears normal, oropharynx moist, no oral exudates, nose normal. [] Eyes: EOMI, conjunctiva normal, no discharge. [] Neck: Normal range of motion, no tenderness, supple, no stridor. [] Cardiovascular: No tachycardia Lungs & Thorax: Normal respiratory rate with no asymmetry of the chest wall excursion and no increased work of breathing Abdomen: Nondistended abdomen Skin: Warm, dry, no erythema, no rash. [] Back: Normal supple appearing neck Extremities: no cyanosis, no clubbing, ROM intact, no edema. [] Neurologic: Alert and oriented X 3, normal motor function, normal sensory function, no focal deficits noted. [] Psychologic: Affect normal, judgement normal, mood normal. [] Current Patient Data Vital Signs Vital Signs Date Time Temp Pulse Resp B/P (MAP) Pulse Ox O2 Delivery O2 Flow Rate FiO2 10/20/17 19:25 98.6 88 14 99 Room Air EKG EKG [] Radiology/Procedures Radiology/Procedures [] Course & Med Decision Making Course & Med Decision Making Pertinent Labs and Imaging studies reviewed. (See chart for details) Signs and symptoms consistent with symptoms manifest from patient's chronic schizophrenia. No indication for emergent psychiatric evaluation exists. He is functional and well-groomed. Patient has auditory hallucinations but not creating any danger for himself or others. No further workup or treatment indicated. Patient clearly does not have any issue with his knee and came up with this as a complaint when it became apparent that he did not have a reason to check into the emergency department [] Dragon Disclaimer Dragon Disclaimer This electronic medical record was generated, in whole or in part, using a voice recognition dictation system. Departure Departure: Impression: Primary Impression: Hallucination Additional Impressions: Schizophrenia Malingering Disposition: 01 HOME, SELF-CARE Condition: STABLE Referrals: PCP,NO (PCP) Patient Instructions: Hallucinations and Delusions, Schizophrenia Additional Instructions: You described that you've been hearing some voices which has been common for you with your schizophrenia. Continue any previously prescribed outpatient medications as directed. Follow up with the [facility] in the morning. Follow-up with your primary care doctor tomorrow as well. Problem Qualifiers JENIFFER DE JESUS MD Oct 20, 2017 20:43
== END 2017-10-20 20:47 | disposition home or self-care (01) ==
LOC: ER 19:20
DX: R44.0 Auditory hallucinations (principal); F20.9 Schizophrenia, unspecified; F41.9 Anxiety disorder, unspecified; F31.9 Bipolar disorder, unspecified; Z76.5 Malingerer [conscious simulation]; Z91.012 Allergy to eggs; Z91.013 Allergy to seafood
CPT/HCPCS: 99281

== ENCOUNTER 2017-10-23 19:54 | Emergency (ER) | payer MEDICARE ==
[~2017-10-23] VITALS: Ht 170.2 cm; Wt 94.5 kg
--- NOTE | 2017-10-23 23:21 | PHYS DOC ---
Past History Past Medical History: Anxiety, Bipolar, Schizophrenia Past Surgical History: No Surgical History, Other Alcohol Use: None Drug Use: None Adult General Chief Complaint Chief Complaint: HALLUCINATIONS AUDIBLE/VISUAL HPI HPI Patient is a 42 year old male who presents with complaint of hearing voices. The patient is well-known to this emergency department and has multiple visits to this department for similar complaints. Patient has history of schizophrenia. The patient has been prescribed Zyprexa but does not feel this medication as he is homeless and has history of noncompliance. Patient states that he is hearing voices currently. They are not commanding him to be violent or suicidal at this time. Patient denies any medical complaints currently. Review of Systems Review of Systems Constitutional: Denies fever or chills [] Eyes: Denies change in visual acuity, redness, or eye pain [] HENT: Denies nasal congestion or sore throat [] Respiratory: Denies cough or shortness of breath [] Cardiovascular: Denies chest pain or edema[] GI: Denies abdominal pain, nausea, vomiting, bloody stools or diarrhea [] : Denies dysuria or hematuria [] Musculoskeletal: Denies back pain or joint pain [] Integument: Denies rash or skin lesions [] Neurologic: Denies headache, focal weakness or sensory changes [] All other systems were reviewed and found to be within normal limits, except as documented in this note. Current Medications Current Medications Current Medications Medications (Trade) Dose Ordered Sig/Rosey Start Time Stop Time Status Last Admin Dose Admin Olanzapine (ZyPREXA ZYDIS) 5 mg 1X STAT 10/23/17 22:35 10/23/17 22:38 DC 10/23/17 22:35 5 MG Allergies Allergies Allergies Coded Allergies Type Severity Reaction Last Updated Verified egg Allergy Intermediate 09/07/17 Yes shellfish derived Allergy Intermediate 09/07/17 Yes Physical Exam Physical Exam Constitutional: Alert, afebrile, no acute distress. [] HENT: Normocephalic, atraumatic, bilateral external ears normal, oropharynx moist, no oral exudates, nose normal. [] Eyes: PERRLA, EOMI, conjunctiva normal, no discharge. [] Neck: Normal range of motion, no tenderness, supple, no stridor. [] Cardiovascular:Heart rate regular rhythm, no murmur [] Lungs & Thorax: Bilateral breath sounds clear to auscultation [] Abdomen: Bowel sounds normal, soft, no tenderness, no masses, no pulsatile masses. [] Skin: Warm, dry, no erythema, no rash. [] Back: No tenderness, no CVA tenderness. [] Extremities: No tenderness, no cyanosis, no clubbing, ROM intact, no edema. [] Neurologic: Alert and oriented X 3, normal motor function, normal sensory function, no focal deficits noted. [] Psychologic: Affect normal, auditory hallucinations, labile mood, pressured speech. [] Current Patient Data Vital Signs Vital signs were reviewed and are stable Lab Results Not performed EKG EKG Not performed[] Radiology/Procedures Radiology/Procedures Not performed[] Course & Med Decision Making Course & Med Decision Making Pertinent Labs and Imaging studies reviewed. (See chart for details) Patient was given Zyprexa Zydis tablet which she took voluntarily. Patient also provided a boxed lunch in the emergency department. Patient referred to the [facility] for further evaluation and treatment. Recommended patient to visit tomorrow between the hours of 9 AM and 5 PM. Advised return emergency department for any worsening symptoms. Patient voiced understanding and was in agreement with treatment plan. Dragon Disclaimer Dragon Disclaimer This electronic medical record was generated, in whole or in part, using a voice recognition dictation system. Departure Departure: Impression: Primary Impression: Schizophrenia Disposition: HOME, SELF-CARE Condition: IMPROVED Referrals: PCP,STEVE (PCP) Patient Instructions: Schizophrenia Additional Instructions: Follow-up with the [facility] tomorrow for further evaluation. Return to emergency department for any worsening symptoms. Problem Qualifiers Primary Impression: Schizophrenia Schizophrenia type: unspecified Qualified Codes: F20.9 - Schizophrenia, unspecified EMERY GANDHI MD Oct 23, 2017 23:21
[2017-10-24 00:01] VITALS: BP 113/75
== END 2017-10-24 00:12 | disposition home or self-care (01) ==
LOC: ER 19:54
DX: F20.9 Schizophrenia, unspecified (principal); F41.9 Anxiety disorder, unspecified; F31.9 Bipolar disorder, unspecified; Z91.012 Allergy to eggs; Z91.013 Allergy to seafood
CPT/HCPCS: 99284

== ENCOUNTER 2017-10-25 00:05 | Emergency (ER) | payer MEDICARE ==
[~2017-10-25] VITALS: Ht 170.2 cm; Wt 94.5 kg
--- NOTE | 2017-10-25 00:12 | ED.ADGEN ---
Past History Past Medical History: Anxiety, Bipolar, Schizophrenia Past Surgical History: No Surgical History, Other Alcohol Use: None Drug Use: None Adult General Chief Complaint Chief Complaint " I hearing a lot of voices...".. Mainly tonight is my mother.. there are others ...but they are in the back ground... It mainly my mother... I can't get her out of my head... I am getting to a lot of arguments with her... She is in my head yelling at me..." HPI HPI Patient is a 42 year old male who presents with above hx and complaints of hallucinations. Pt. well know to ED staff. Pt. has been in ED three times in past week for similar complaints. Pt. is very non- compliant with follow-ups and taking his medicines. Pt. has know hx of Bipolar, anxiety and Schizophrenia. Pt. has been instructed to [facility]. Pt. currently presenting requesting transfer to [facility]. Pt. denies suicidal or homicidal ideation. Patient denies any drug use. Patient denies any ingestion of alcohol. Patient states he did go to the counseling center this past week but they told him there is nothing they can do for him, and told him to go to the halfway. Patient also presented to the emergency department yesterday and was advised to come back tonight if not improved. Review of Systems Review of Systems His only compliants is hallucinations Constitutional: Denies fever or chills [] Eyes: Denies change in visual acuity, redness, or eye pain [] HENT: Denies nasal congestion or sore throat [] Respiratory: Denies cough or shortness of breath [] Cardiovascular: No additional information not addressed in HPI [] GI: Denies abdominal pain, nausea, vomiting, bloody stools or diarrhea [] : Denies dysuria or hematuria [] Musculoskeletal: Denies back pain or joint pain [] Integument: Denies rash or skin lesions [] Neurologic: Denies headache, focal weakness or sensory changes [] Endocrine: Denies polyuria or polydipsia [] All other systems were reviewed and found to be within normal limits, except as documented in this note. Family History Family History Non-contributory Current Medications Current Medications Current Medications Medications (Trade) Dose Ordered Sig/Rosey Start Time Stop Time Status Last Admin Dose Admin Folic Acid (FOLIC ACID SYRINGE for ER) 5 mg STK-MED ONCE 10/25/17 01:01 10/25/17 01:02 DC Magnesium Hydroxide (Milk Of Magnesia) 2,400 mg 1X ONCE 10/25/17 03:00 10/25/17 03:01 DC 10/25/17 02:42 2,400 MG Multivitamins/ Minerals (Infuvite Adult) 10 ml STK-MED ONCE 10/25/17 01:01 10/25/17 01:02 DC Multivitamins/ Minerals 10 ml/ Folic Acid 1 mg/ Thiamine HCl 100 mg/Lactated Ringer's 1,011.2 ml @ 1,000 mls/ hr 1X ONCE 10/25/17 01:00 10/25/17 02:00 DC 10/25/17 01:04 1,000 MLS/HR Olanzapine (ZyPREXA ZYDIS) 10 mg 1X ONCE 10/25/17 03:00 10/25/17 03:01 DC 10/25/17 02:42 10 MG Olanzapine (ZyPREXA) 5 mg 1X ONCE 10/25/17 01:00 10/25/17 01:01 DC 10/25/17 01:00 5 MG Potassium Chloride (KCl Oral Soln) 40 meq 1X ONCE 10/25/17 03:00 10/25/17 03:01 DC 10/25/17 02:42 40 MEQ Thiamine HCl 200 mg STK-MED ONCE 10/25/17 01:01 10/25/17 01:02 DC See Nursing for home meds Allergies Allergies Allergies Coded Allergies Type Severity Reaction Last Updated Verified egg Allergy Intermediate 09/07/17 Yes shellfish derived Allergy Intermediate 09/07/17 Yes Physical Exam Physical Exam Constitutional: Well developed, well nourished, in moderately acute emotional distress, non-toxic appearance. [] HENT: Normocephalic, atraumatic, bilateral external ears normal, oropharynx moist, no oral exudates, nose normal. [] Eyes: PERRLA, EOMI, conjunctiva normal, no discharge. [] Neck: Normal range of motion, no tenderness, supple, no stridor. [] Cardiovascular:Heart rate regular rhythm, no murmur [] Lungs & Thorax: Bilateral breath sounds clear to auscultation [] Abdomen: Bowel sounds normal, soft, no tenderness, no masses, no pulsatile masses. [] Skin: Warm, dry, no erythema, no rash. [] Back: No tenderness, no CVA tenderness. [] Extremities: No tenderness, no cyanosis, no clubbing, ROM intact, no edema. [] Neurologic: Alert and oriented X 3, normal motor function, normal sensory function, no focal deficits noted. [] Psychologic: Affect anxious, judgement poor insight to his disease, , mood agitated and vacillates between depression and zulema. Pressured speech. Arguing with his mother- ( Hallucinating) Current Patient Data Vital Signs Vital Signs Date Time Temp Pulse Resp B/P (MAP) Pulse Ox O2 Delivery O2 Flow Rate FiO2 10/25/17 05:55 97.6 64 20 110/66 (81) 98 Room Air Lab Results Laboratory Tests Test 10/25/17 01:10 10/25/17 02:50 White Blood Count 5.3 x10^3/uL (4.0-11.0) Red Blood Count 5.41 x10^6/uL (4.30-5.70) Hemoglobin 13.2 g/dL (13.0-17.5) Hematocrit 40.3 % (39.0-53.0) Mean Corpuscular Volume 75 fL (79-100) L Mean Corpuscular Hemoglobin 25 pg (25-35) Mean Corpuscular Hemoglobin Concent 33 g/dL (31-37) Red Cell Distribution Width 14.9 % (11.5-14.5) H Platelet Count 252 x10^3/uL (140-400) Neutrophils (%) (Auto) 49 % (31-73) Lymphocytes (%) (Auto) 39 % (24-48) Monocytes (%) (Auto) 10 % (0-9) H Eosinophils (%) (Auto) 2 % (0-3) Basophils (%) (Auto) 1 % (0-3) Neutrophils # (Auto) 2.6 x10^3uL (1.8-7.7) Lymphocytes # (Auto) 2.0 x10^3/uL (1.0-4.8) Monocytes # (Auto) 0.5 x10^3/uL (0.0-1.1) Eosinophils # (Auto) 0.1 x10^3/uL (0.0-0.7) Basophils # (Auto) 0.0 x10^3/uL (0.0-0.2) Sodium Level 139 mmol/L (136-145) Potassium Level 3.4 mmol/L (3.5-5.1) L Chloride Level 104 mmol/L (98-107) Carbon Dioxide Level 26 mmol/L (21-32) Anion Gap 9 (6-14) Blood Urea Nitrogen 20 mg/dL (8-26) Creatinine 0.8 mg/dL (0.7-1.3) Estimated GFR (Cockcroft-Gault) 128.9 Glucose Level 113 mg/dL (70-99) H Calcium Level 8.6 mg/dL (8.5-10.1) Magnesium Level 1.5 mg/dL (1.8-2.4) L Troponin I Quantitative < 0.017 ng/mL (0-0.055) Urine Collection Type Unknown Urine Color Yellow Urine Clarity Clear Urine pH 5.5 Urine Specific [place] 1.025 Urine Protein Neg (NEG-TRACE) Urine Glucose (UA) Neg mg/dL (NEG) Urine Ketones (Stick) Trace mg/dL (NEG) Urine Blood Neg (NEG) Urine Nitrite Neg (NEG) Urine Bilirubin Neg (NEG) Urine Urobilinogen Dipstick 0.2 mg/dL (0.2 mg/dL) Urine Leukocyte Esterase Neg (NEG) Urine RBC 0 /HPF (0-2) Urine WBC 0 /HPF (0-4) Urine Squamous Epithelial Cells Few /LPF Urine Bacteria Few /HPF (0-FEW) Urine Opiates Screen Neg (NEG) Urine Methadone Screen Neg (NEG) Urine Barbiturates Neg (NEG) Urine Phencyclidine Screen Neg (NEG) Urine Amphetamine/Methamphetamine Neg (NEG) Urine Benzodiazepines Screen Neg (NEG) Urine Cocaine Screen Neg (NEG) Urine Cannabinoids Screen Neg (NEG) Urine Ethyl Alcohol Neg (NEG) EKG EKG My interpretation of EKG shows a sinus rhythm at 76 bpm. Some mild left axis. J- point elevation in V2 V3 V4 V5 and V6. Oh contralateral findings of acute STEMI. [] Radiology/Procedures Radiology/Procedures [] Course & Med Decision Making Course & Med Decision Making Pertinent Labs and Imaging studies reviewed. (See chart for details). Counseling center refused to do assessment. Pt. to push fruit juices. Pt. to follow up counseling center. [facility] not accept pt at this time. Pt. to follow up counseling center. [] Final Impression Final Impression 1. Schizophrenia 2. Hallucinations[] 3. Hypokalemia 4. Hypomagnesium Problems: Dragon Disclaimer Dragon Disclaimer This electronic medical record was generated, in whole or in part, using a voice recognition dictation system. EFFIE COPELAND MD Oct 25, 2017 00:12
[2017-10-25] MEDS ORDERED: OLANZapine 2.5 MG TABLET PO ONE (01:00)
[2017-10-25] MEDS ORDERED: MVI, ADULT NO.4 WITH VIT K 10 ML, FOLIC ACID SYRINGE for ER 1 MG, THIAMINE 100 MG in IV... IV ONE ×4 (01:00)
[2017-10-25] MEDS ORDERED: MVI, ADULT NO.4 WITH VIT K 10 ML VIAL IV ONE (01:01)
[2017-10-25] MEDS ORDERED: FOLIC ACID 5 MG/ML SYRINGE for ER IV ONE (01:01)
[2017-10-25] MEDS ORDERED: THIAMINE 200 MG/2 ML VIAL. IV ONE (01:01)
--- NOTE | 2017-10-25 01:07 | EKG ---
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 ABNORMAL ECG RI6.01 Electronically Signed On 10-29-2017 9:47:18 [employer]PER[employer] by Catracho Crockett
[2017-10-25 01:35] LABS: CALCIUM 8.6 mg/dL (8.5-10.1); CREATININE 0.8 mg/dL (0.7-1.3); GFR 128.9; MAGNESIUM 1.5 mg/dL (1.8-2.4); POTASSIUM 3.4 mmol/L (3.5-5.1)
[2017-10-25 01:37] LABS: BASO % 1 % (0-3); EOS # 0.1 x10^3/uL (0.0-0.7); EOS % 2 % (0-3); HEMATOCRIT 40.3 % (39.0-53.0); HEMOGLOBIN 13.2 g/dL (13.0-17.5); LYMPH % 39 % (24-48); MEAN CORPUSCULAR HEMOGLOBIN 25 pg (25-35); MEAN CORPUSCULAR HGB CONC 33 g/dL (31-37); MEAN CORPUSCULAR VOLUME 75 fL (79-100); MONO # 0.5 x10^3/uL (0.0-1.1); MONO % 10 % (0-9); NEUT # 2.6 x10^3uL (1.8-7.7); NEUT % 49 % (31-73); PLATELET COUNT 252 x10^3/uL (140-400); RED BLOOD COUNT 5.41 x10^6/uL (4.30-5.70); RED CELL DISTRIBUTION WIDTH 14.9 % (11.5-14.5); WHITE BLOOD COUNT 5.3 x10^3/uL (4.0-11.0)
[2017-10-25] MEDS ORDERED: POTASSIUM CHLORIDE 20 MEQ/15 ML ORAL LIQUID. PO ONE (03:00)
[2017-10-25] MEDS ORDERED: MAGNESIUM HYDROXIDE 2,400 MG/30 ML ORAL.SUSP. PO ONE (03:00)
[2017-10-25 03:10] LABS: BACTERIA,URINE FEW /HPF (0-FEW); BILIRUBIN,URINE NEG (NEG); CLARITY,URINE CLEAR; COLOR,URINE YELLOW; GLUCOSE,URINE NEG (NEG); NITRITE,URINE NEG (NEG); RBC,URINE 0 /HPF (0-2); SQUAMOUS EPITHELIAL CELL,UR FEW /LPF; UROBILINOGEN,URINE 0.2 mg/dL (0.2 mg/dL); WBC,URINE 0 /HPF (0-4)
[2017-10-25 03:25] LABS: BARBITURATES NEG (NEG); BENZODIAZEPINES NEG (NEG); CANNABINOIDS NEG (NEG); COCAINE NEG (NEG); METHADONE NEG (NEG); OPIATES NEG (NEG); PHENCYCLIDINE NEG (NEG)
[2017-10-25 03:39] LABS: AMPHETAMINE/METHAMPHETAMINE NEG (NEG)
[2017-10-25 05:55] VITALS: BP 110/66
== END 2017-10-25 05:55 | disposition home or self-care (01) ==
LOC: ER 00:05
DX: F20.9 Schizophrenia, unspecified (principal); E87.6 Hypokalemia; E83.42 Hypomagnesemia; F41.9 Anxiety disorder, unspecified; F31.9 Bipolar disorder, unspecified; Z91.012 Allergy to eggs; Z91.013 Allergy to seafood
CPT/HCPCS: 36415; 80048; 80307; 81001; 83735; 84484; 85025; 93005; 96365; 96366; 99285; J7120; G0479

== ENCOUNTER 2017-10-26 19:16 | Emergency (ER) | payer MEDICARE ==
[~2017-10-26] VITALS: Ht 169.5 cm; Wt 93.0 kg
--- NOTE | 2017-10-26 19:36 | PHYS DOC ---
Past History Past Medical History: Anxiety, Bipolar, Schizophrenia Past Surgical History: No Surgical History, Other Alcohol Use: None Drug Use: None Adult General Chief Complaint Chief Complaint: HALLUCINATIONS AUDIBLE/VISUAL HPI HPI Patient is a pleasant 42-year-old male well-known to our facility who comes are quite thick only for his "" voices were speaking Latin to them. Patient was just recently seen in our facility screen for acute schizophrenic break was actually screened by the psychiatrist and offered a placement at [facility]. Unfortunately the facility was full was not able to offer him inpatient treatment for his chronic schizophrenia. He admits he came back today specifically looking to see if we can call the facility and see if they had been open today. He is not suicidal or homicidal, he said the voices are typical as usual speaking to him and Latin hears multiple voices although there are no command present voices causing him to hurt himself or anybody else. He is well fed, he is well-dressed, he has homeless but he is staying in a number of different facilities for food and correction. Patient denies fever, headaches or new symptoms. Review of Systems Review of Systems Constitutional: Denies fever or chills [] Eyes: Denies change in visual acuity, redness, or eye pain [] HENT: Denies nasal congestion or sore throat [] Respiratory: Denies cough or shortness of breath [] Cardiovascular: No additional information not addressed in HPI [] GI: Denies abdominal pain, nausea, vomiting, bloody stools or diarrhea [] : Denies dysuria or hematuria [] Musculoskeletal: Denies back pain or joint pain [] Integument: Denies rash or skin lesions [] Neurologic: Denies headache, focal weakness or sensory changes [] Endocrine: Denies polyuria or polydipsia [] All other systems were reviewed and found to be within normal limits, except as documented in this note. Allergies Allergies Allergies Coded Allergies Type Severity Reaction Last Updated Verified egg Allergy Intermediate 09/07/17 Yes shellfish derived Allergy Intermediate 09/07/17 Yes Physical Exam Physical Exam Other vital signs on the chart within normal limits Constitutional: Well developed, well nourished, no acute distress, non-toxic appearance. [] HENT: Normocephalic, atraumatic, bilateral external ears normal, oropharynx moist, no oral exudates, nose normal. [] Eyes: PERRLA, EOMI, conjunctiva normal, no discharge. [] Neck: Normal range of motion, no tenderness, supple, no stridor. [] Cardiovascular:Heart rate regular rhythm, no murmur [] Lungs & Thorax: Bilateral breath sounds clear to auscultation [] Abdomen: Bowel sounds normal, soft, no tenderness, no masses, no pulsatile masses. [] Skin: Warm, dry, no erythema, no rash. [] Back: No tenderness, no CVA tenderness. [] Extremities: No tenderness, no cyanosis, no clubbing, ROM intact, no edema. [] Neurologic: Alert and oriented X 3, normal motor function, normal sensory function, no focal deficits noted. [] Psychologic: Affect normal, judgement normal, mood normal. Patient says he hears voices but he is able to control them they're not command voices causing him to hurt him worse himself or anybody else. asking to see if we can patient is not agitated Current Patient Data Lab Results Laboratory Tests Test 10/26/17 21:35 Sodium Level 142 mmol/L (136-145) Potassium Level 4.1 mmol/L (3.5-5.1) Chloride Level 106 mmol/L (98-107) Carbon Dioxide Level 29 mmol/L (21-32) Anion Gap 7 (6-14) Blood Urea Nitrogen 11 mg/dL (8-26) Creatinine 0.7 mg/dL (0.7-1.3) Estimated GFR (Cockcroft-Gault) 150.4 BUN/Creatinine Ratio 16 (6-20) Glucose Level 104 mg/dL (70-99) H Calcium Level 8.8 mg/dL (8.5-10.1) Magnesium Level 2.1 mg/dL (1.8-2.4) Total Bilirubin 0.3 mg/dL (0.2-1.0) Aspartate Amino Transferase (AST) 29 U/L (15-37) Alanine Aminotransferase (ALT) 36 U/L (16-63) Alkaline Phosphatase 82 U/L (46-116) Total Protein 7.9 g/dL (6.4-8.2) Albumin 3.6 g/dL (3.4-5.0) Albumin/Globulin Ratio 0.8 (1.0-1.7) L EKG EKG [] Radiology/Procedures Radiology/Procedures [] Course & Med Decision Making Course & Med Decision Making Pertinent Labs and Imaging studies reviewed. (See chart for details) []Facility and see if had any room available to accommodate his needs. He is not a danger to himself or anybody else. He denies any suicidal homicidal ideations. Denies any headache, new focal neurologic deficits or new voices. He admits he is not comply with medications although he has been in and out of our system multiple times My differential for visual hallucinations includes but is not limited to retinal pathology, vision loss, migraine headache, seizure disorder, dementia, alcohol, alcohol withdrawal, medication withdrawal, narcolepsy, psychiatric illness, metabolic encephalopathy, hypothyroidism, renal failure, systemic infection, central nervous system ischemia, And p.m., to return our phone call said they would be happy to see this patient and take him as an inpatient for treatment for schizophrenia and hallucinations provided we can provide and a magnesium level, CMP and EKG that was normal. Patient again has had a screening exam yesterday but unfortunately did not have bed space and was asked to return [facility] with the information obtained from yesterday's evaluation was willing to accept patient at this magnesium level, CMP and EKG were normal. Time is now 10:50 PM Magnesium level is normal, CMP was normal, EKG is unremarkable. Information was faxed to [facility] for evaluation and admission to their inpatient facility. Patient was accepted by on-call physician who reviewed his information from yesterday and the magnesium, CMP and EKG for today. Except by Dr. Brooks at [facility] time of acceptance is 11:15 PM patient be transferred by EMS Dragon Disclaimer Dragon Disclaimer This electronic medical record was generated, in whole or in part, using a voice recognition dictation system. Departure Departure: Impression: Primary Impression: Hallucination Disposition: XFER SHT-TRM HOSP Condition: GUARDED Referrals: PCP,NO (PCP) JUNIOR MORENO MD Oct 26, 2017 19:36
[2017-10-26 22:10] LABS: ALBUMIN 3.6 g/dL (3.4-5.0); ALBUMIN/GLOBULIN RATIO 0.8 (1.0-1.7); CALCIUM 8.8 mg/dL (8.5-10.1); CREATININE 0.7 mg/dL (0.7-1.3); GFR 150.4; MAGNESIUM 2.1 mg/dL (1.8-2.4); POTASSIUM 4.1 mmol/L (3.5-5.1); TOTAL BILIRUBIN 0.3 mg/dL (0.2-1.0); TOTAL PROTEIN 7.9 g/dL (6.4-8.2)
[2017-10-26 23:45] VITALS: BP 129/79
[2017-10-26] MEDS ORDERED: OLANZapine 2.5 MG TABLET PO ONE (23:45)
== END 2017-10-27 01:00 | disposition short-term general hospital (02) ==
LOC: ER 19:16
DX: F20.9 Schizophrenia, unspecified (principal); F41.9 Anxiety disorder, unspecified; F31.9 Bipolar disorder, unspecified; Z59.0 Homelessness; Z91.012 Allergy to eggs; Z91.013 Allergy to seafood
CPT/HCPCS: 36415; 80053; 83735; 99284

== ENCOUNTER 2017-11-04 19:14 | Emergency (ER) | payer MEDICARE ==
[~2017-11-04] VITALS: Ht 169.5 cm; Wt 94.5 kg
--- NOTE | 2017-11-04 19:23 | ED.ADGEN ---
Past History Past Medical History: Anxiety, Bipolar, Schizophrenia Past Surgical History: No Surgical History, Other Alcohol Use: None Drug Use: None Adult General Chief Complaint Chief Complaint " I still having hallucinations..." HPI HPI Patient is a 42 year old male who presents with complaints of hallucination and delusions. Patient is well-known to emergency room staff. Patient has been relatively noncompliant with his schizophrenic medications. Patient has been noncompliant with these follow-ups at [facility]. Patient denies any drug use. Pt. denies any suicidal or homicidal ideations. Patient states he hears voices from his mother and other unidentified individuals. The voices are not telling him to do anything bad. Review of Systems Review of Systems His only complaint are hallucinations Constitutional: Denies fever or chills [] Eyes: Denies change in visual acuity, redness, or eye pain [] HENT: Denies nasal congestion or sore throat [] Respiratory: Denies cough or shortness of breath [] Cardiovascular: No additional information not addressed in HPI [] GI: Denies abdominal pain, nausea, vomiting, bloody stools or diarrhea [] : Denies dysuria or hematuria [] Musculoskeletal: Denies back pain or joint pain [] Integument: Denies rash or skin lesions [] Neurologic: Denies headache, focal weakness or sensory changes [] Endocrine: Denies polyuria or polydipsia [] All other systems were reviewed and found to be within normal limits, except as documented in this note. Family History Family History Noncontributory Current Medications Current Medications Current Medications Medications (Trade) Dose Ordered Sig/Rosey Start Time Stop Time Status Last Admin Dose Admin Diphenhydramine HCl (Benadryl) 25 mg 1X ONCE 11/04/17 19:45 11/04/17 19:46 DC 11/04/17 20:03 25 MG Olanzapine (ZyPREXA) 20 mg 1X ONCE 11/04/17 20:00 11/04/17 20:01 DC 11/04/17 20:03 20 MG Allergies Allergies Allergies Coded Allergies Type Severity Reaction Last Updated Verified egg Allergy Intermediate 09/07/17 Yes shellfish derived Allergy Intermediate 09/07/17 Yes Physical Exam Physical Exam Constitutional: Well developed, well nourished, no acute distress, non-toxic appearance. []Complaints are that hallucinations. HENT: Normocephalic, atraumatic, bilateral external ears normal, oropharynx moist, no oral exudates, nose normal. [] Eyes: PERRLA, EOMI, conjunctiva normal, no discharge. [] Neck: Normal range of motion, no tenderness, supple, no stridor. [] Cardiovascular:Heart rate regular rhythm, no murmur [] Lungs & Thorax: Bilateral breath sounds clear to auscultation [] Abdomen: Bowel sounds normal, soft, no tenderness, no masses, no pulsatile masses. [] Skin: Warm, dry, no erythema, no rash. [] Back: No tenderness, no CVA tenderness. [] Extremities: No tenderness, no cyanosis, no clubbing, ROM intact, no edema. [] Neurologic: Alert and oriented X 3, normal motor function, normal sensory function, no focal deficits noted. [] Psychologic: Affect anxious, judgement normal, mood normal. Plaints of hallucinations-chronic Current Patient Data Vital Signs Vital Signs Date Time Temp Pulse Resp B/P (MAP) Pulse Ox O2 Delivery O2 Flow Rate FiO2 11/04/17 20:05 74 18 146/72 (96) 98 Room Air EKG EKG [] Radiology/Procedures Radiology/Procedures [] Course & Med Decision Making Course & Med Decision Making Pertinent Labs and Imaging studies reviewed. (See chart for details). Patient encouraged to take his previous prescription of Zyprexa. Patient given a dose of 20 mg of Zyprexa tonight. Patient encouraged to keep his follow-up at counseling center. [] Final Impression Final Impression 1. Psychosis-schizophrenia 2. Complaints of hallucinations and delusions 3. Persistent noncompliance with medications and follow-up [] 4. History of bipolar 5. History of anxiety disorder Problems: Dragon Disclaimer Dragon Disclaimer This electronic medical record was generated, in whole or in part, using a voice recognition dictation system. EFFIE COPELAND MD Nov 04, 2017 19:23
[2017-11-04] MEDS ORDERED: OLANZapine 2.5 MG TABLET PO ONE (19:45)
[2017-11-04] MEDS: diphenhydrAMINE HCL 25 MG CAPSULE PO ONE (20:03)
[2017-11-04] MEDS: OLANZapine 10 MG TABLET PO ONE (20:03)
[2017-11-04 20:05] VITALS: BP 146/72
== END 2017-11-04 20:04 | disposition home or self-care (01) ==
LOC: ER 19:14
DX: F20.9 Schizophrenia, unspecified (principal); F22 Delusional disorders; Z91.14 Patient's other noncompliance with medication regimen; Z91.19 Patient's noncompliance with other medical treatment and regimen; F41.9 Anxiety disorder, unspecified; F32.9 Major depressive disorder, single episode, unspecified; Z91.012 Allergy to eggs; Z91.013 Allergy to seafood
CPT/HCPCS: 99284; Q0163

== ENCOUNTER 2017-11-06 20:26 | Emergency (ER) | payer MEDICARE | END 2017-11-06 20:30 | disposition left against medical advice (07) | LOC: ER 20:26 | DX: R44.3 Hallucinations, unspecified (principal); Z53.21 Procedure and treatment not carried out due to patient leaving prior to being seen by health care provider ==